=== PATIENT | male | born 1955 | race Caucasian/White ===

== ENCOUNTER 2020-05-11 14:20 | Emergency (ER) | payer OTHER, SELFPAY ==
--- NOTE | 2020-05-11 14:29 | ED.GENADULT ---
HPI - General Adult General Chief complaint: Ear Stated complaint: wax build up ears Time Seen by Provider: 05/11/20 14:30 Source: patient Mode of arrival: ambulatory Limitations: no limitations History of Present Illness HPI narrative: 64-year-old male patient presents to the [facility] with complaints of earwax buildup to both ears but more so to the left ear. Patient states that he went to go and have his hearing aids refitted today and he was told that he had some earwax buildup but they were not able to clean them out. Patient denies any lightheadedness, dizziness, fevers or pain. Related Data Home Medications Medication Instructions Recorded Confirmed bimatoprost 0.01 % eye drops 1 drop EACH EYE QPM 04/18/19 05/11/20 fluoxetine 10 mg capsule 10 mg PO DAILY 04/18/19 05/11/20 Allergies Allergy/AdvReac Type Severity Reaction Status Date / Time No Known Allergies Allergy Verified 04/21/20 11:05 Review of Systems Review of Systems: Narrative: CONSTITUTIONAL: Denies fever, chills, or sweats. EYES: Denies visual changes, redness, or discharge. ENT: Denies rhinorrhea, congestion, sore throat, positive bilateral clogged ears. CARDIOVASCULAR: Denies chest pain, palpitations, or edema. RESPIRATORY: Denies cough or dyspnea. GASTROINTESTINAL: Denies abdominal pain, nausea, vomiting, or diarrhea. GENITOURINARY: Denies dysuria or hematuria. SKIN: Denies rash or itching. MUSCULOSKELETAL: Denies back pain, joint pain, or myalgia. NEUROLOGIC: Denies headache, numbness, or weakness. PSYCHIATRIC: Denies anxiety or depression. [facility] Family History Family History Sibling Family history of kidney disease Mother Cerebrovascular accident, Onset Age: 86 Patient's mother is , Onset Age: 88 Father Family history of coronary artery disease Social History Social History Smoking status: Former smoker Second hand tobacco smoke exposure: No Smoking end date: 04/03/15 Alcohol intake: current Drinks per week: 4 Substance use: never Comments At the time of my signature I agree with nursing past medical history, surgical, social, and family history. There is no relevant family history pertinent to the presenting complaint. Exam Narrative: Exam Narrative: GENERAL: Well-appearing, well-nourished, and in no acute distress. HEAD: Normocephalic, atraumatic. EYES: PERRLA and EOMI. ENT: Nares clear, no rhinorrhea or epistaxis. Mucous membranes moist. Unable to assess bilateral TMs due to cerumen impaction. NECK: Supple. No lymphadenopathy CHEST: Clear to auscultation. No respiratory distress. HEART: Regular rate and rhythm. No murmur heard. Normal peripheral pulses. ABDOMEN: Soft, nontender, nondistended, normal active bowel sounds. EXTREMITIES: Normal range of motion. No edema. SKIN: Warm, dry, no rash. NEURO: No focal deficits. Alert and oriented x3. Course Vital Signs Vital signs: Vital Signs Temperature 36.6 C 05/11/20 14:30 Pulse Rate 68 05/11/20 14:30 Respiratory Rate 18 05/11/20 14:30 Blood Pressure 155/92 H 05/11/20 14:30 Pulse Oximetry 98 05/11/20 14:30 Temperature 36.6 C 05/11/20 14:35 Pulse Rate 68 05/11/20 14:35 Respiratory Rate 18 05/11/20 14:35 Blood Pressure 155/92 H 05/11/20 14:35 Pulse Oximetry 98 05/11/20 14:35 Vital signs reviewed The patient has been informed that they may have pre-hypertension or Hypertension based on a BP reading in the department. I recommend that the patient call the primary care provider listed on their discharge instructions or a physician of their choice this week to arrange follow up for further evaluation of possible pre-hypertension or Hypertension Procedures Ear Wax Removal Both Ears: Ear Wax Removal Date: 05/11/20 Ear Wax Removal Time: 14:46 Cerumenolytic Used: Cerumenex and 5-10%
[2020-05-11 14:30] VITALS: BP 155/92; PULSE 68; RESP 18; TEMP 36.6; O2SAT 98
[2020-05-11 14:35] VITALS: BP 155/92; PULSE 68; RESP 18; TEMP 36.6; O2SAT 98
[2020-05-11] MEDS: CARBAMIDE PEROXIDE 6.5% OT SOLN 15 ML BTL 5 DROP LEFT EAR (14:44)
== END 2020-05-11 15:10 | disposition home or self-care (01) ==
PROVIDERS: Emergency Provider Nurse Practitioner Family; PCP Internal Medicine
DX: H61.23 Impacted cerumen, bilateral (principal); Z87.891 Personal history of nicotine dependence; I10 Essential (primary) hypertension; H40.9 Unspecified glaucoma; F32.9 Major depressive disorder, single episode, unspecified
CPT/HCPCS: 69210; 99213; A9270; G0463

== ENCOUNTER 2021-05-18 07:05 | Outpatient (CLI) | payer OTHER, SELFPAY ==
--- NOTE | ~2021-05-18 | XR_ITS ---
XR wrist RT min 3V DATE: 05/18/2021 07:34 INDICATION: Pain, swelling, stiffness; mass at head of third metacarpal TECHNIQUE: 4 views of right wrist COMPARISON: None FINDINGS: There is prominent narrowing at the radial scaphoid joint. There is osteoarthritic change a t the triscaphe and first carpometacarpal and particularly the second and third metacarpal joints wit h very prominent spurs of the second and third metacarpal heads. No fracture or dislocation, periosteal reaction or bone destruction, erosion or chondrocalcinosis is detected. IMPRESSION: Polyarticular osteoarthritis, particularly prominent at the second and third metacarpopha langeal joints, with very prominent spurs of the heads of the second and third metacarpal bones, like ly accounting for the clinically reported mass at the head of the third metacarpal Reviewed, dictated and finalized at location B. SHADE MAKER IMPRESSION: Polyarticular osteoarthritis, particularly prominent at the second and third metacarpophalangeal joints, with very prominent spurs of the heads of the second and third metacarpal bones, likely accounting for the clinically re ported mass at the head of the third metacarpal
--- NOTE | ~2021-05-18 | XR_ITS ---
XR hand RT min 3V DATE: 05/18/2021 07:35 INDICATION: Pain, swelling, stiffness. Mass at head of third metacarpal. TECHNIQUE: 3 views COMPARISON: None FINDINGS: There is polyarticular osteoarthritis, including prominent narrowing at the radial scaphoid joint, involvement of the triscaphe, first carpometacarpal and especially the second and third metac arpophalangeal joints, with very prominent spurs of the second and third metacarpal heads. There is m ild spurring at the fifth metacarpophalangeal joint. Osteoarthritic changes noted at some of the inte rphalangeal joints, with mild spurring at the distal interphalangeal joints of the fourth and fifth d igits in particular. No erosive change. No chondrocalcinosis. No fracture, dislocation, periosteal reaction or bone destruction. IMPRESSION: Polyarticular osteoarthritis, particularly prominent osteoarthritic spurs at the heads of the second and third metacarpal bones, likely accounting for the clinically reported mass of the hea d of the third metacarpal bone Reviewed, dictated and finalized at location B. LINES SUPERVISOR IMPRESSION: Polyarticular osteoarthritis, particularly prominent osteoarthritic spurs at the heads of the second and third metacarpal bones, likely accounting for the clinically reported mass of the head of the third metacarpal bone
== END 2021-05-18 07:06 | disposition home or self-care (01) ==
LOC: ANHIMG 07:12
PROVIDERS: PCP Internal Medicine; Visit Provider Plastic Surgery
DX: M19.031 Primary osteoarthritis, right wrist (principal); M19.041 Primary osteoarthritis, right hand
CPT/HCPCS: 73110; 73130

== ENCOUNTER 2023-02-06 12:33 | Outpatient (CLI) | payer MEDICARE, SELFPAY ==
--- NOTE | ~2023-02-06 | CT_ITS ---
EXAMINATION: CT lung screening DATE: 02/06/2023 13:04 INDICATION: Personal history nicotine dependence, prior smoker with 40 pack year history TECHNIQUE: Computed tomography (CT) of the chest was performed without intravenous contrast. The dose -length product (DLP) was 107.57 mGy-cm. Automated exposure control and iterative reconstruction tech [employer] were employed. COMPARISON: None FINDINGS: There is mild emphysema. There is scarring of the lung apices. There are a few scattered pu lmonary nodules measuring 1 to 2 mm. No suspicious pulmonary nodule is identified. The lungs are free of acute opacities. No pleural effusion or pneumothorax. No pathologically enlarged thoracic lymph n odes are identified. The heart size is normal. Calcified pulmonary nodules and calcified right hilar lymph nodes are consistent with old granulomatous disease. There is moderate thoracic spondylosis. IMPRESSION: 1. Lung-RADS category 2: Benign appearance or behavior. Continue annual screening with noncontrast lo w-dose chest CT in 12 months. Reviewed, dictated and finalized at location B. TABLE FARMER IMPRESSION: 1. Lung-RADS category 2: Benign appearance or behavior. Continue annual screeni ng with noncontrast low-dose chest CT in 12 months.
== END 2023-02-06 12:34 | disposition home or self-care (01) ==
PROVIDERS: PCP Internal Medicine; Visit Provider Internal Medicine
DX: Z12.2 Encounter for screening for malignant neoplasm of respiratory organs (principal); Z87.891 Personal history of nicotine dependence
CPT/HCPCS: 71271

== ENCOUNTER 2023-02-09 02:42 | Day surgery (SDC) | payer MEDICARE, SELFPAY ==
[2023-01-30 15:04] VITALS: BMI 23.8
--- NOTE | 2023-02-07 10:10 | SUR.PREOP ---
Patient called regarding upcoming procedure. Message left on patient's voicemail regarding preop instructions, appointment times, and procedure prep.
[2023-02-09 09:22] VITALS: BP 102/66; PULSE 74; RESP 18; TEMP 36.6; O2SAT 96; BMI 23.1
[2023-02-09] MEDS: LACTATED RINGERS 1,000 ML 150 ML IV CONT (09:44)
--- NOTE | 2023-02-09 10:29 | PM.HPGS ---
History of Present Illness History of Present Illness Consent: Risks, benefits, and alternatives have been discussed and questions answered. Patient agrees to proceed with procedure. Chief complaint: hx colon polyps Narrative: Olman Beth is a 67 year old male Presents for screening colonoscopy. Patient's current weight appetite and bowel movements are normal. Patient denies abdominal pain. He has had no bleeding. Family history noncontributory. Previous colonoscopy in 2017 revealed benign adenomatous colon polyp. Review of Systems Review of Systems: Review of systems noncontributory. [facility] Family History Family History Sibling Family history of kidney disease Mother Cerebrovascular accident, Onset Age: 86 Patient's mother is , Onset Age: 88 Father Family history of coronary artery disease Social History Social History (Updated 05/03/22 @ 14:07 by Kimberly Jain [facility]) Smoking packs per day: 1.5 Smoking cigarettes per day: 30.0 Years smoked: 45 Smoking pack-years: 67.50 Smoking status: Former smoker Tobacco type: cigarettes Second hand tobacco smoke exposure: No Smoking end date: 04/03/15 Alcohol intake: current Drinks per week: 5 Substance use: never Substance use type: does not use Lack of Transportation: No Lack of Food: Never True Current Housing: I Have Housing Concerned About Future Housing: No Difficulty Paying Gas/Electric Bills: No Difficulty Paying for Meds: No Currently Unemployed: No Education: High School Diploma/GED Difficulty w/ Childcare or Family Care: No Living arrangements: other Additional living arrangements comments: with sp Meds Home Medications and Allergies Home Medications Medication Instructions Recorded Confirmed Type bimatoprost 0.01 % eye drops 1 drop ophthalmic (eye) QPM 04/18/19 02/09/23 History (Lumigan) cholecalciferol (vitamin D3) 125 125 mcg PO DAILY 04/23/21 02/09/23 History mcg (5,000 unit) capsule glucosamine sulfate 500 mg tablet 500 mg PO DAILY 04/23/21 02/09/23 History (Glucosamine) hydrochlorothiazide 12.5 mg tablet 12.5 mg PO DAILY #90 tabs 05/21/22 02/09/23 Rx fluoxetine 10 mg capsule (Prozac) 10 mg PO DAILY #90 caps 07/08/22 02/09/23 Rx Allergies Allergy/AdvReac Type Severity Reaction Status Date / Time No Known Allergies Allergy Verified 02/09/23 09:30 Vital Signs Vital Signs - 24 hr 02/09/23 09:22 Temperature 97.9 F Pulse Rate 74 Respiratory Rate 18 Blood Pressure 102/66 Pulse Oximetry 96 Oxygen Delivery Room Air Exam Narrative: Physical exam reveals patient to be alert. Vital signs stable. HEENT exam is unremarkable. Patient is anicteric. Lungs are clear to auscultation and percussion. Heart is without murmur or extra sounds. Abdomen bowel sounds are present soft nontender with no organomegaly. Digital external rectal exam is normal. Assessment and Plan Assessment and plan (1) History of colon polyps: Code(s): Z86.010 - Personal history of colonic polyps Status: Acute Assessment and Plan: Patient has a prior history of adenomatous colon polyp removed in 2017. Plan for surveillance colonoscopy now and consider this at intervals in the future.
--- NOTE | 2023-02-09 10:43 | WPDANESEPPF ---
Anes - Initial Pre Proc Eval Procedure: Operation Date: 02/09/23 10:30 Proposed Procedures p Colonoscopy - Shiraz Cummins MD Date/Time: 02/09/23 10:43 Surgeon: Shiraz Cummins MD Pre Op Diagnosis: hx colon polyps Patient Data Age: 67 Gender: M Height: 1.8 m Weight: 75.4 kg Last Vital Signs Temp 36.6 C 02/09/23 09:22 Pulse 74 02/09/23 09:22 Resp 18 02/09/23 09:22 BP 102/66 02/09/23 09:22 Pulse Ox 96 02/09/23 09:22 O2 Del Method Room Air 02/09/23 09:22 Allergies Allergy/AdvReac Type Severity Reaction Status Date / Time No Known Allergies Allergy Verified 02/09/23 09:30 Home Medications Medication Instructions Recorded Confirmed Type bimatoprost 0.01 % eye drops 1 drop ophthalmic (eye) QPM 04/18/19 02/09/23 History (Lumigan) cholecalciferol (vitamin D3) 125 125 mcg PO DAILY 04/23/21 02/09/23 History mcg (5,000 unit) capsule glucosamine sulfate 500 mg tablet 500 mg PO DAILY 04/23/21 02/09/23 History (Glucosamine) hydrochlorothiazide 12.5 mg tablet 12.5 mg PO DAILY #90 tabs 05/21/22 02/09/23 Rx fluoxetine 10 mg capsule (Prozac) 10 mg PO DAILY #90 caps 07/08/22 02/09/23 Rx Patient hx anesthesia problems: none Family hx anesthesia problems: none Results Review: All pre-operative results and documents have been reviewed as part of the pre-operative evaluation. [facility], [facility] Family History Family History Sibling Family history of kidney disease Mother Cerebrovascular accident, Onset Age: 86 Patient's mother is , Onset Age: 88 Father Family history of coronary artery disease Social History Social History Smoking packs per day: 1.5 Smoking cigarettes per day: 30.0 Years smoked: 45 Smoking pack-years: 67.50 Smoking status: Former smoker Tobacco type: cigarettes Second hand tobacco smoke exposure: No Smoking end date: 04/03/15 Alcohol intake: current Drinks per week: 5 Substance use: never Substance use type: does not use Lack of Transportation: No Lack of Food: Never True Current Housing: I Have Housing Concerned About Future Housing: No Difficulty Paying Gas/Electric Bills: No Difficulty Paying for Meds: No Currently Unemployed: No Education: High School Diploma/GED Difficulty w/ Childcare or Family Care: No Living arrangements: other Additional living arrangements comments: with melanie No Final PreProcedure Day of Procedure 02/09/23 10:43 Patient weight: normal Heart: regular rate and rhythm Lungs: decreased breath sounds Airway: Mallampati scale Neurological: alert and oriented Last oral intake: >/= 8 hours ASA classification: III Emergent: no Anesthetic plan: proceed Anesthesia type and monitoring: general GIVS and standard monitoring Results Review: All pre-operative results and documents have been reviewed as part of the pre-operative evaluation. Informed Consent: The patient's anesthetic plan and its attendant risks and benefits were discussed with the patient/family/POA. Questions were solicited and answers provided to the satisfaction of the patient/family/POA.
[2023-02-09 11:26] VITALS: BP 100/62; PULSE 60; RESP 18; O2SAT 100
[2023-02-09 11:36] VITALS: BP 130/71; PULSE 62; RESP 18; O2SAT 100
[2023-02-09 11:46] VITALS: BP 117/78; PULSE 59; RESP 16; O2SAT 100
== END 2023-02-09 11:57 | disposition home or self-care (01) ==
PROVIDERS: PCP Internal Medicine; Visit Provider Internal Medicine Gastroenterology
PROC: 0DJD8ZZ Inspection of Lower Intestinal Tract, Via Natural or Artificial Opening Endoscopic (ICD-10-PCS; CPT 45378; principal; 2023-02-09 10:30)
DX: Z12.11 Encounter for screening for malignant neoplasm of colon (principal); K57.30 Diverticulosis of large intestine without perforation or abscess without bleeding; K63.5 Polyp of colon; K64.8 Other hemorrhoids; Z87.891 Personal history of nicotine dependence; Z82.3 Family history of stroke; Z82.49 Family history of ischemic heart disease and other diseases of the circulatory system
CPT/HCPCS: 45385; 88305; J2704; J7120

== ENCOUNTER 2024-03-15 10:54 | Emergency (ER) | payer MEDICARE, SELFPAY ==
[2024-03-15 11:11] VITALS: BP 148/82; PULSE 77; RESP 30; TEMP 36.4; O2SAT 100
--- NOTE | 2024-03-15 11:23 | ED_ITS ---
HPI - SOB/Dyspnea General Chief Complaint: Upper Respiratory Infection Stated Complaint: stomach and chest Pain Time Seen by Provider: 03/15/24 11:20 Source: patient Mode of arrival: ambulatory Limitations: no limitations History of Present Illness HPI Narrative: Olman is a 68-year-old male patient presenting to the clinic today with complaints of a knot in his upper stomach, shortness of breath, and dry cough. He appears pale. He denies any chest pain. This has been going on for 4 days. He has states he is able to drink water but not able to keep any foods down. He is a former smoker. Respirations are 30. Oxygen saturations 100% on room air. Cough is nonproductive. Denies any chest pain. Related Data Home Medications ?Medication ?Instructions ?Recorded ?Confirmed ?Last Taken ?Type bimatoprost 0.01 % eye drops 1 drop ophthalmic (eye) QPM 04/18/19 03/15/24 Unknown History (Lumigan) cholecalciferol (vitamin D3) 125 125 mcg PO DAILY 04/23/21 03/15/24 Unknown History mcg (5,000 unit) capsule glucosamine sulfate 500 mg tablet 500 mg PO DAILY 04/23/21 03/15/24 Unknown History (Glucosamine) Allergies Allergy/AdvReac Type Severity Reaction Status Date / Time No Known Allergies Allergy Verified 03/15/24 11:17 Review of Systems Review of Systems: Pertinent positives per HPI. Patient denies any fever, chills, rash, headache, visual changes, dizziness, chest pain, palpitations, diarrhea, constipation, or any urinary issues. [facility] Family History Family History Sibling Family history of kidney disease Mother Cerebrovascular accident, Onset Age: 86 Patient's mother is , Onset Age: 88 Father Family history of coronary artery disease Social History Social History Smoking packs per day: 1.5 Smoking cigarettes per day: 30.0 Years smoked: 45 Smoking pack-years: 67.50 Smoking status: Former smoker Tobacco type: cigarettes Second hand tobacco smoke exposure: No Smoking end date: 04/03/15 Alcohol intake: current Drinks per week: 5 Substance use: never Substance use type: does not use Lack of Transportation: No Lack of Food: Never True Current Housing: I Have Housing Concerned About Future Housing: No Difficulty Paying Gas/Electric Bills: No Difficulty Paying for Meds: No Currently Unemployed: No Education: High School Diploma/GED Difficulty w/ Childcare or Family Care: No Living arrangements: other Additional living arrangements comments: with sp Comments At the time of my signature, I reviewed and agree with the nursing past medical, surgical, social, and family history. There is no relevant family history pertinent to the patient complaint. Exam Narrative: General: Well-developed, well nourished, appears pale, tachypneic Head: Normocephalic, atraumatic Eyes: Pupils equally round and reactive to light bilaterally, EOM intact, sclera and conjunctive clear, no discharge, lids normal Ears: TMs intact and clear, ear canals clear, no drainage, grossly hearing normal. Nose: Nares patent, clear discharge, no inflammation, no sinus tenderness. Mouth: Oral pharynx without lesions or masses, good dentition, MMM. Neck: Supple, trachea midline, no enlargement of anterior or posterior cervical nodes, no thyroid masses or goiter palpable. Cardio: Regular rate and rhythm, s1 and s2 normal, no murmur appreciated. Resp: Clear to auscultation bilaterally, no rhonchi, rales, wheezing or rubs, tachypneic Course Course Emergency Course: Portions of this record may have been created with voice recognition software. Level of Care: Express Care Visit Vital Signs Vital signs: Vital Signs Temperature 36.4 C 03/15/24 11:11 Pulse Rate 77 03/15/24 11:11 Respiratory Rate 30 H 03/15/24 11:11 Blood Pressure 148/82 H 03/15/24 11:11 Pulse Oximetry 100 03/15/24 11:11 Oxygen Delivery Room Air 03/15/24 11:11 Temperature 36.4 C 03/15/24 11:11 Pulse Rate 77 03/15/24 11:11 Respiratory Rate 30 H 03/15/24 11:11 Blood Pressure 148/82 H 03/15/24 11:11 Pulse Oximetry 100 03/15/24 11:11 Oxygen Delivery Room Air 03/15/24 11:11 Vital signs reviewed Transfer Transfered to: [place] Transportation: Other (private car) Transfer rationale: SOB, tachypnea, abdominal pain Accepting physician: Randell Transfer comments: Declined EMS MDM - SOB/Dyspnea MDM Narrative Medical decision making narrative: At the time of visit patient is resting comfortably on the exam table. Patient appears to be acutely ill and tachypneic. EKG: EKG shows sinus rhythm with heart rate of 70 beats per minute without ST elevation or depression noted. Plan: Patient is reporting shortness of breath and he is tachypneic. Upper abdominal discomfort/knot-recommend transfer to the ER for further evaluation. Patient would like to go to [place] ER. Report was called to Shannen BENAVIDEZ for continuity of care. Differential Diagnosis Differential diagnosis: Likely acute exacerbation of chronic obstructive airways disease, congestive heart failure, community acquired pneumonia, asthma with exacerbation, pulmonary embolism and other (STEMI, non STEMI) ECG Data EKG #1: Attestation: I personally reviewed and interpreted this ECG as follows: ECG completion date: 03/15/24 ECG completion time: 11:38 Interpretation: EKG shows sinus rhythm with heart rate of 70 beats per minute without ST elevation or depression. Has possible left atrial enlargement or possible right ventricular conduction delay. TN interval is 163 milliseconds, QRS durations 98 milliseconds, QT-QTC see is 390-411 milliseconds, P-R-T axis is 77 33 74 Discharge Plan Discharge Clinical Impression: Shortness of breath, Tachypnea Abdominal pain Qualifiers: Abdominal location: upper abdomen, unspecified Qualified Code(s): R10.10 - Upper abdominal pain, unspecified Patient Disposition: Acute Care Hospital Condition: Stable Instructions: Antibiotic Form Patient Language: Amharic Prescriptions: No Action cholecalciferol (vitamin D3) 125 mcg (5,000 unit) capsule 125 mcg PO DAILY glucosamine sulfate [Glucosamine] 500 mg tablet 500 mg PO DAILY Rx Instructions: administer with a meal Lumigan 0.01 % drops 1 drop EACH EYE QPM hydrochlorothiazide 12.5 mg tablet See Rx Instructions .ROUTE .COMPLEX Qty: 100 3RF Dose Instruction: TAKE 1 TABLET BY MOUTH DAILY Rx Instructions: TAKE 1 TABLET BY MOUTH DAILY fluoxetine [Prozac] 10 mg capsule 10 mg PO DAILY Qty: 90 3RF Follow-up/Referrals: PHYSICIAN,SENIOR ACCOUNT EXECUTIVE [Primary Care Provider] - Time of Disposition: 11:50 Quality NIHSS Nursing Documentation ED NIHSS nursing documentation: reviewed/agree
--- NOTE | 2024-03-15 11:25 | ECG_ITS ---
Test Date: 2024-03-15 11:38:23 Measurements Intervals [place] Rate: 70 P: 77 IN: 163 QRS: 33 QRSD: 98 T: 74 QT: 390 QTc: 423 Interpretive Statements SINUS RHYTHM POSSIBLE LEFT ATRIAL ENLARGEMENT [-0.1mV P WAVE IN V1/V2] POSSIBLE RIGHT VENTRICULAR CONDUCTION DELAY [RSR (QR) IN V1/V2] No previous ECG available for comparison Electronically Signed On 03-15-2024 18:44:27 STAFF ASSISTANT by Bethany Pratt M.D.
== END 2024-03-15 11:55 | disposition short-term general hospital (02) ==
PROVIDERS: Emergency Provider Nurse Practitioner Family
DX: R06.82 Tachypnea, not elsewhere classified (principal); R10.10 Upper abdominal pain, unspecified; Z87.891 Personal history of nicotine dependence
CPT/HCPCS: 93005; 99213; G0463

== ENCOUNTER 2024-03-15 12:11 | Emergency (ER) | payer MEDICARE, SELFPAY ==
[2024-03-15] VITALS (17 sets, daily range): BP systolic 102–130; BP diastolic 73–90; PULSE 72–118; RESP 12–40; TEMP 36.4; O2SAT 96–100
--- NOTE | ~2024-03-15 | XR_ITS ---
EXAMINATION: XR chest 1V portable 03/15/2024 15:33 INDICATION: Cough with dyspnea PROCEDURE: AP portable chest COMPARISON: 10/12/2016 FINDINGS: The lungs are clear. The cardiomediastinal silhouette is within normal limits. There are no pleural effusions. There is no pneumothorax suspected. IMPRESSION: 1: NO ACUTE CARDIOPULMONARY DISEASE. Reviewed, dictated and finalized at location B. RER
--- NOTE | 2024-03-15 14:41 | ED.GENADULT ---
HPI - General Adult General Chief complaint: Shortness of Breath/Dyspnea <Sidney Ray PA-C - Last Filed: 03/15/24 14:46> Stated complaint: sob, weakness <Sidney Ray PA-C - Last Filed: 03/15/24 14:46> Time Seen by Provider: 03/15/24 14:44 <Sidney Ray PA-C - Last Filed: 03/15/24 14:46> Focused HPI: This is a 68-year-old male who presents to the ED from urgent care referral for shortness of breath. Patient reports that he has been feeling increasing short of breath lately as well as had some fevers this week. Noted to be tachypneic and mildly tachycardic at the urgent care so was referred here for further evaluation. Patient reports that he has also had a little bit of abdominal burning. GENERAL: Well-appearing, well-nourished, and in no acute distress. HEAD: Normocephalic, atraumatic. CHEST: Clear to auscultation. No respiratory distress. ABD: Soft, grossly nontender. HEART: Regular rate and rhythm. NEURO: Alert and oriented x3. Patient screened in triage and initial orders placed. Additional care and disposition to be based upon diagnostic testing and treatment. <Sidney Ray PA-C - Last Filed: 03/15/24 14:46> Source: patient <Sidney Ray PA-C - Last Filed: 03/15/24 14:46> Mode of arrival: ambulatory <Sidney Rya PA-C - Last Filed: 03/15/24 14:46> Limitations: no limitations <Sidney Ray PA-C - Last Filed: 03/15/24 14:46> History of Present Illness HPI narrative: agree with HPI <Galo Hendrickson MD - Last Filed: 03/15/24 22:51> Related Data Home medications: Home Medications ?Medication ?Instructions ?Recorded ?Confirmed ?Last Taken ?Type bimatoprost 0.01 % eye drops 1 drop ophthalmic (eye) QPM 04/18/19 03/15/24 Unknown History (Rissa) cholecalciferol (vitamin D3) 125 125 mcg PO DAILY 04/23/21 03/15/24 Unknown History mcg (5,000 unit) capsule glucosamine sulfate 500 mg tablet 500 mg PO DAILY 04/23/21 03/15/24 Unknown History (Glucosamine) <Sidney Ray PA-C - Last Filed: 03/15/24 14:46> Allergies/adverse reactions: Allergies Allergy/AdvReac Type Severity Reaction Status Date / Time No Known Allergies Allergy Verified 03/15/24 11:17 <Sidney Ray PA-C - Last Filed: 03/15/24 14:46> Review of Systems Review of Systems: All systems reviewed & are unremarkable except as noted in HPI and below <Galo Hendrickson MD - Last Filed: 03/15/24 22:51> Constitutional: Constitutional: Reports no additional constitutional complaints <Galo Hendrickson MD - Last Filed: 03/15/24 22:51> ENT: Reports system reviewed and no additional complaints, except as documented <Galo Hendrickson MD - Last Filed: 03/15/24 22:51> Cardiovascular: Cardiovascular: Reports no additional cardiovascular complaints <Galo Hendrickson MD - Last Filed: 03/15/24 22:51> Respiratory: Respiratory: Reports cough, Reports dyspnea and Denies wheezing <Galo Hendrickson MD - Last Filed: 03/15/24 22:51> Gastrointestinal: Gastrointestinal: Reports no additional gastrointestinal complaints <Galo Hendrickson MD - Last Filed: 03/15/24 22:51> [facility] Past Medical History Medical History: Medical History (Updated 03/15/24 @ 22:50 by Galo Hendrickson MD) Thyromegaly COPD (chronic obstructive pulmonary disease) Benign prostatic hyperplasia Essential (primary) hypertension Hyperlipidemia <Sidney Ray PA-C - Last Filed: 03/15/24 14:46> Family History Family History: Family History Sibling Family history of kidney disease Mother Cerebrovascular accident, Onset Age: 86 Patient's mother is , Onset Age: 88 Father Family history of coronary artery disease <ALBERT Foreman Last Filed: 03/15/24 14:46> Social History Social History: Social History Smoking packs per day: 1.5 Smoking cigarettes per day: 30.0 Years smoked: 45 Smoking pack-years: 67.50 Smoking status: Former smoker Tobacco type: cigarettes Second hand tobacco smoke exposure: No Smoking end date: 04/03/15 Alcohol intake: current Drinks per week: 5 Substance use: never Substance use type: does not use Lack of Transportation: No Lack of Food: Never True Current Housing: I Have Housing Concerned About Future Housing: No Difficulty Paying Gas/Electric Bills: No Difficulty Paying for Meds: No Currently Unemployed: No Education: High School Diploma/GED Difficulty w/ Childcare or Family Care: No Living arrangements: other Additional living arrangements comments: with sp <Sidney Ray PA-C - Last Filed: 03/15/24 14:46> Exam Narrative: GENERAL: Well-appearing, well-nourished, and in no acute distress. HEAD: Normocephalic, atraumatic. ENT: Mucous membranes moist. NECK: Supple. CHEST: Clear to auscultation but faint wheezing left lower lobe. No respiratory distress. HEART: tachycardic and regular. Normal peripheral pulses. ABDOMEN: Soft, nontender, nondistended. EXTREMITIES: Normal range of motion. No edema. SKIN: Warm, dry, no rash. NEURO:Alert and oriented x3. PSYCH: Normal mood and affect. <Galo Hendrickson MD - Last Filed: 03/15/24 22:51> Course Course Emergency Course: lung sounds improved after nebulizer treatment. Ambulatory without hypoxia. Discharge with paxlovid and albuterol. <Galo Hendrickson MD - Last Filed: 03/15/24 22:51> Vital Signs Vital signs: Vital Signs Temperature 97.5 F L 03/15/24 12:25 Pulse Rate 118 H 03/15/24 12:25 Respiratory Rate 30 H 03/15/24 12:25 Blood Pressure 126/83 03/15/24 12:25 Pulse Oximetry 100 03/15/24 12:25 Temperature 97.5 F L 03/15/24 12:25 Pulse Rate 79 03/15/24 19:15 Respiratory Rate 20 03/15/24 19:15 Blood Pressure 102/81 03/15/24 19:15 Pulse Oximetry 97 03/15/24 19:15 Oxygen Delivery Room Air 03/15/24 15:51 <Sidney Ray PA-C - Last Filed: 03/15/24 14:46> Vital Signs Temperature 97.5 F L 03/15/24 12:25 Pulse Rate 118 H 03/15/24 12:25 Respiratory Rate 30 H 03/15/24 12:25 Blood Pressure 126/83 03/15/24 12:25 Pulse Oximetry 100 03/15/24 12:25 Temperature 97.5 F L 03/15/24 12:25 Pulse Rate 79 03/15/24 19:15 Respiratory Rate 20 03/15/24 19:15 Blood Pressure 102/81 03/15/24 19:15 Pulse Oximetry 97 03/15/24 19:15 Oxygen Delivery Room Air 03/15/24 15:51 <Galo Hendrickson MD - Last Filed: 03/15/24 22:51> Medical Decision Making Vital Signs Vital Signs: Vital Signs Temperature 97.5 F L 03/15/24 12:25 Pulse Rate 118 H 03/15/24 12:25 Respiratory Rate 30 H 03/15/24 12:25 Blood Pressure 126/83 03/15/24 12:25 Pulse Oximetry 100 03/15/24 12:25 Temperature 97.5 F L 03/15/24 12:25 Pulse Rate 79 03/15/24 19:15 Respiratory Rate 20 03/15/24 19:15 Blood Pressure 102/81 03/15/24 19:15 Pulse Oximetry 97 03/15/24 19:15 Oxygen Delivery Room Air 03/15/24 15:51 <Sidney Ray PA-C - Last Filed: 03/15/24 14:46> Vital Signs Temperature 97.5 F L 03/15/24 12:25 Pulse Rate 118 H 03/15/24 12:25 Respiratory Rate 30 H 03/15/24 12:25 Blood Pressure 126/83 03/15/24 12:25 Pulse Oximetry 100 03/15/24 12:25 Temperature 97.5 F L 03/15/24 12:25 Pulse Rate 79 03/15/24 19:15 Respiratory Rate 20 03/15/24 19:15 Blood Pressure 102/81 03/15/24 19:15 Pulse Oximetry 97 03/15/24 19:15 Oxygen Delivery Room Air 03/15/24 15:51 <Galo Hendrickson MD - Last Filed: 03/15/24 22:51> Lab Data Result diagrams: 03/15/24 15:55 03/15/24 15:55 <Sidney Ray PA-C - Last Filed: 03/15/24 14:46> Labs: Lab Results 03/15/24 Range/Units 15:55 WBC 9.8 (4.5-10.0) K/mm3 RBC 4.65 (4.6-6.20) M/mm3 Hgb 14.9 (14.0-18.0) g/dL Hct 42.7 (42.0-52.0) % MCV 91.8 (80-100) fl MCH 32.0 (26-34) pg MCHC 34.9 (32-36) g/dl RDW 12.6 (11.5-14.5) % Plt Count 249 (150-375) k/mm3 MPV 9.5 (7.4-10.4) fl Immature Gran % (Auto) 0.5 (0-0.5) % Neut % (Auto) 70.1 (45.5-73.1) % Lymph % (Auto) 16.3 L (18.3-44.2) % Sierra % (Auto) 12.5 H (2.6-8.5) % Eos % (Auto) 0.3 (0-4.4) % Baso % (Auto) 0.3 (0.2-1.2) % Lymph # (Auto) 1.59 (0.9-3.2) K/mm3 Sierra # (Auto) 1.2 H (0.1-0.6) K/mm3 Eos # (Auto) 0.0 (0-0.3) K/mm3 Baso # (Auto) 0.0 (0.0-0.1) K/mm3 Abs Immat Gran (auto) 0.05 H (0.00-0.031) K/mm3 Absolute Neuts (auto) 6.8 H (1.3-6.7) K/mm3 Absolute Nucleated RBC 0.000 (0.0-0.012) K/mm3 Nucleated RBC % 0.0 (0.0-0.2) % Sodium 138 (137-145) mmol/L Potassium 3.7 (3.4-5.0) mmol/L Chloride 102 (98-107) mmol/L Carbon Dioxide 27 (22-30) mmol/L Anion Gap 9 (4-12) mmol/L BUN 19 (9-20) mg/dL Creatinine 1.20 (0.7-1.3) mg/dL Estim Creat Clear Calc 57 ml/min Estimated GFR 60 (59 - ) Glucose 112 H (65-110) mg/dL Calcium 10.0 (8.4-10.2) mg/dL Total Bilirubin 0.9 (0.2-1.3) mg/dL AST 34 (17-59) U/L ALT 27 (6-50) U/L Alkaline Phosphatase 82 (38-126) U/L Troponin I < 0.012 (0.000-0.034) ng/mL NT-Pro-B Natriuret Pep 347 H (19.9-100) pg/mL Total Protein 8.0 (6.3-8.2) g/dL Albumin 4.5 (3.5-5.1) g/dL Influenza A (RT-PCR) Negative (Negative) Influenza B (RT-PCR) Negative (Negative) RSV (RT-PCR) Negative (Negative) SARS-CoV-2 RNA (RT-PCR) Positive A (Negative) <Sidney Ray PA-C - Last Filed: 03/15/24 14:46> Lab Results 03/15/24 Range/Units 15:55 WBC 9.8 (4.5-10.0) K/mm3 RBC 4.65 (4.6-6.20) M/mm3 Hgb 14.9 (14.0-18.0) g/dL Hct 42.7 (42.0-52.0) % MCV 91.8 (80-100) fl MCH 32.0 (26-34) pg MCHC 34.9 (32-36) g/dl RDW 12.6 (11.5-14.5) % Plt Count 249 (150-375) k/mm3 MPV 9.5 (7.4-10.4) fl Immature Gran % (Auto) 0.5 (0-0.5) % Neut % (Auto) 70.1 (45.5-73.1) % Lymph % (Auto) 16.3 L (18.3-44.2) % Sierra % (Auto) 12.5 H (2.6-8.5) % Eos % (Auto) 0.3 (0-4.4) % Baso % (Auto) 0.3 (0.2-1.2) % Lymph # (Auto) 1.59 (0.9-3.2) K/mm3 Sierra # (Auto) 1.2 H (0.1-0.6) K/mm3 Eos # (Auto) 0.0 (0-0.3) K/mm3 Baso # (Auto) 0.0 (0.0-0.1) K/mm3 Abs Immat Gran (auto) 0.05 H (0.00-0.031) K/mm3 Absolute Neuts (auto) 6.8 H (1.3-6.7) K/mm3 Absolute Nucleated RBC 0.000 (0.0-0.012) K/mm3 Nucleated RBC % 0.0 (0.0-0.2) % Sodium 138 (137-145) mmol/L Potassium 3.7 (3.4-5.0) mmol/L Chloride 102 (98-107) mmol/L Carbon Dioxide 27 (22-30) mmol/L Anion Gap 9 (4-12) mmol/L BUN 19 (9-20) mg/dL Creatinine 1.20 (0.7-1.3) mg/dL Estim Creat Clear Calc 57 ml/min Estimated GFR 60 (59 - ) Glucose 112 H (65-110) mg/dL Calcium 10.0 (8.4-10.2) mg/dL Total Bilirubin 0.9 (0.2-1.3) mg/dL AST 34 (17-59) U/L ALT 27 (6-50) U/L Alkaline Phosphatase 82 (38-126) U/L Troponin I < 0.012 (0.000-0.034) ng/mL NT-Pro-B Natriuret Pep 347 H (19.9-100) pg/mL Total Protein 8.0 (6.3-8.2) g/dL Albumin 4.5 (3.5-5.1) g/dL Influenza A (RT-PCR) Negative (Negative) Influenza B (RT-PCR) Negative (Negative) RSV (RT-PCR) Negative (Negative) SARS-CoV-2 RNA (RT-PCR) Positive A (Negative) <Galo Hendrickson MD - Last Filed: 03/15/24 22:51> Imaging Data Radiologist's impression: ITS Impressions Chest X-Ray 03/15/24 15:35 IMPRESSION: 1: NO ACUTE CARDIOPULMONARY DISEASE. <Galo Hendrickson MD - Last Filed: 03/15/24 22:51> Discharge Plan Discharge Clinical Impression: COVID <Sidney Ray PA-C - Last Filed: 03/15/24 14:46> Patient Disposition: Home, Self-Care <Sidney Ray PA-C - Last Filed: 03/15/24 14:46> Condition: Stable <Sidney Ray PA-C - Last Filed: 03/15/24 14:46> Instructions: COVID-19 (Coronavirus Disease 2019) (ED) <Sidney Ray PA-C - Last Filed: 03/15/24 14:46> Additional Instructions: Please return to the emergency department if you develop severe and persistent chest pain, difficulty breathing, dizziness, leg swelling or if you are coughing up blood as these can be signs of a medical emergency. Please call your doctor for a follow up appointment to determine the need for further testing. <Sidney Ray PA-C - Last Filed: 03/15/24 14:46> Patient Language: Colombian <Sidney Ray PA-C - Last Filed: 03/15/24 14:46> Prescriptions: New Paxlovid 300 mg (150 mg x 2)-100 mg tablets,dose pack See Rx Instructions .ROUTE .COMPLEX Qty: 30 0RF Rx Instructions: take TWO 150 mg tablets of nirmatrelvir with ONE 100 mg tablet of ritonavir twice daily for 5 days albuterol sulfate 90 mcg/actuation HFA aerosol inhaler 2 puff inhalation QID PRN (Reason: shortness of breath or wheezing) Qty: 8.5 0RF No Action cholecalciferol (vitamin D3) 125 mcg (5,000 unit) capsule 125 mcg PO DAILY glucosamine sulfate [Glucosamine] 500 mg tablet 500 mg PO DAILY Rx Instructions: administer with a meal Lumigan 0.01 % drops 1 drop EACH EYE QPM hydrochlorothiazide 12.5 mg tablet See Rx Instructions .ROUTE .COMPLEX Qty: 100 3RF Dose Instruction: TAKE 1 TABLET BY MOUTH DAILY Rx Instructions: TAKE 1 TABLET BY MOUTH DAILY fluoxetine [Prozac] 10 mg capsule 10 mg PO DAILY Qty: 90 3RF <Sidney Ray PA-C - Last Filed: 03/15/24 14:46> Follow-up/Referrals: PHYSICIAN,MANAGEMENT TRAINEE PROGRAM STORES [Non-Staff] - <Sidney Ray PA-C - Last Filed: 03/15/24 14:46>
--- NOTE | 2024-03-15 14:45 | ECG_ITS ---
Test Date: 2024-03-15 16:05:44 Measurements Intervals [place] Rate: 72 P: 64 PA: 161 QRS: 17 QRSD: 101 T: 72 QT: 400 QTc: 438 Interpretive Statements SINUS RHYTHM NONSPECIFIC T-WAVE ABNORMALITY Compared to ECG 03/15/2024 11:38:23 T-wave abnormality now present Electronically Signed On 03-16-2024 12:59:26 PICKLE WATER PUMP OPERATOR by Bethany Pratt M.D.
[2024-03-15] MEDS: IPRATROPIUM 0.5 MG/ALBUTEROL SULFATE 2.5 MG AMPUL.NEB 3 ML INHALATION (15:19)
--- NOTE | 2024-03-15 16:03 | PC.NURSE ---
EKG done at [facility] charted on Pt's ED visit in error. Removed and new EKG done and charted.
[2024-03-15 16:06] LABS: Basophils Percent Auto 0.3 % (0.2-1.2); Eosinophils Percent Auto 0.3 % (0-4.4); Hematocrit 42.7 % (42.0-52.0); Hemoglobin 14.9 g/dL (14.0-18.0); Immature Granulocyte Absolute 0.05 K/mm3 (0.00-0.031); Immature Granulocyte Percent A 0.5 % (0-0.5); Lymphocytes Absolute Auto 1.59 K/mm3 (0.9-3.2); Lymphocytes Percent Auto 16.3 % (18.3-44.2); Mean Corpuscular HGB Conc 34.9 g/dl (32-36); Mean Corpuscular Volume 91.8 fl (80-100); Mean Platelet Volume 9.5 fl (7.4-10.4); Monocytes Absolute Auto 1.2 K/mm3 (0.1-0.6); Monocytes Percent Auto 12.5 % (2.6-8.5); Neutrophils Absolute Auto 6.8 K/mm3 (1.3-6.7); Neutrophils Percent Auto 70.1 % (45.5-73.1); Platelet Count Result 249 k/mm3 (150-375); Red Blood Count 4.65 M/mm3 (4.6-6.20); Red Cell Distribution Width 12.6 % (11.5-14.5); White Blood Count 9.8 K/mm3 (4.5-10.0)
[2024-03-15 16:16] LABS: Alanine Aminotransferase 27 U/L (6-50); Albumin Level 4.5 g/dL (3.5-5.1); Alkaline Phosphatase 82 U/L (38-126); Anion Gap 9 mmol/L (4-12); Aspartate Amino Transferase 34 U/L (17-59); Bilirubin,Total 0.9 mg/dL (0.2-1.3); Blood Urea Nitrogen 19 mg/dL (9-20); Carbon Dioxide 27 mmol/L (22-30); Chloride 102 mmol/L (98-107); Estimated CRCL calculation 57 ml/min; Estimated Glomerular Filt Rate 60; Glucose 112 mg/dL (65-110); Potassium 3.7 mmol/L (3.4-5.0); Sodium 138 mmol/L (137-145)
[2024-03-15 16:28] LABS: NT Pro B Type Natriuretic Pept 347 pg/mL (19.9-100); Troponin I < 0.012 ng/mL (0.000-0.034)
[2024-03-15 16:44] LABS: Influenza A QL RT-PCR Negative (Negative); Influenza B QL RT-PCR Negative (Negative); RSV RNA, RT-PCR Negative (Negative); SARS-CoV-2 RNA PCR Positive (Negative)
--- OUTSIDE RECORDS SUMMARY | 2024-03-19 01:58 | XMS_ITS | Encounter Summary ---
Author Organization [facility] Facility Care Team Providers Care Bartender Name Role Phone Unavailable Primary Care Provider Unavailabl e Encounter Details Date Type Department Care Team (Latest Contact Info) Description 04/29/2016 11:25 AM BUILDER BEAM - 04/29/2016 3:32 PM BUILDER BEAM 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 F FINAL REPORT ACC# ??Date Time ??Exam [id number] Apr 29, 2016 11:49:00 [id number] Hand minimum 3 views R EXAMINATION: ?Right hand minimum 3 views HISTORY: ??Right hand injury FINDINGS: ?? Three views of the right hand are submitted for interpretation without comparison. The alignment of the right hand is anatomic. There is mild thumb carpal metacarpal and second and third metacarpal phalangeal joint osteoarthritis. There is no fracture. There is a soft tissue laceration of the distal index finger. No foreign body is seen. IMPRESSION: ?? 1. Right index finger soft tissue laceration. 2. Mild right hand osteoarthritis. Requested By: DARI ROUSE F.N.P. Dictated By: ?? Iliana STRATTON ??on Apr 29 2016 11:54A This document has been electronically signed by: Iliana STRATTON on Apr 29 2016 11:54A [id number] Procedure Note Provider, Scottie, - 08/08/2016 Iliana STRATTON FINAL REPORT ACC# Date Time Exam [id number] Apr 29, 2016 11:49:00 [id number] Hand minimum 3 views R EXAMINATION: Right hand minimum 3 views HISTORY: Right hand injury FINDINGS: Three views of the right hand are submitted for interpretation without comparison. The alignment of the right hand is anatomic. There is mild thumb carpal metacarpal and second and third metacarpal phalangeal joint osteoarthritis. There is no fracture. There is a soft tissue laceration of the distal index finger. No foreign body is seen. IMPRESSION: 1. Right index finger soft tissue laceration. 2. Mild right hand osteoarthritis. Requested By: DARI ROUSE F.N.P. Dictated By: Iliana STRATTON on Apr 29 2016 11:54A This document has been electronically signed by: Iliana STRATTON on Apr 29 2016 11:54A [id number] us Historical Provider MD DE XR PROCEDURES Final R esult documented in this encounter Visit Diagnoses Diagnosis Laceration of right index finger without foreign body without damage to nail Exposure to other specified factors, initial encounter Contact with machinery Civilian activity done for income or pay Unspecified place or not applicable Encounter for immunization documented in this encounter
--- OUTSIDE RECORDS SUMMARY | 2024-03-19 01:58 | XMS_ITS | Encounter Summary ---
Author Organization [facility] Address [address] [place] [address] Phone Care Team Providers Care Insulation Manager Name Role Phone Papi Cannon MD Primary Care Provider [phone] Encounter Details Date Type Department Care Team (Late st Contact Info) Description 06/22/2018 1:20 PM CDT Office Visit [facility] [address] [facility] [address] [place] [address] [place] [address] Toño Tillman MD [address] [place], [place] [id number] Bruit of left carotid artery (Primary Dx); Essential hypertension; Vasovagal syncope Social History Tobacco Use Types Packs/Day Years Used Date Smoking Tobacco: Former Smokeless Tobacco: Never Sex and Gender Information Value Date Recorded Sex Assigned at Not on file 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 Gender Identity Not on file Sexual Orientation Not on file documented as of this encounter Last Filed Vital Signs Vital Sign Reading Time Taken Comments Blood Pressure 99/55 06/22/2018 1:10 PM CDT Pulse 61 06/22/2018 1:10 PM CDT Temperature 36.7 ??C (98 ??F) 06/22/2018 1:10 PM CDT Respiratory Rate - - Oxygen Saturation 95% 06/22/2018 1:10 PM CDT Inhaled Oxygen Concentration - - Weight 77.6 kg (171 lb) 06/22/2018 1:10 PM CDT Height 182.9 cm (6') 06/22/2018 1:10 PM CDT Body Mass Index 23.19 06/22/2018 1:10 PM CDT documented in this encounter Progress Notes * Toño Tillman MD - 06/22/2018 1:20 PM CDT Date of Visit: 06/22/2018 Name: Olman Beth : 1955 Medical Record: [id number] Correspondence: Papi Cannon MD PAST MEDICAL HISTORY 1.?Syncope. 2. Hypertension 3. Former cigarette use 4. R carotid artery stenosis (< 50%) Dear Papi Cannon MD: It was my pleasure to see Olman Beth today at the [facility] for a routine follow-up office visit for the above mentioned medical problems . Olman Beth is a 62 y.o. year old White male. Since the last visit the patient has done well. Hecontinues to work a 60 hour work week without any symptoms. He denies dyspnea, orthopnea, paroxysmal nocturnal dyspnea, peripheral edema, chest pain. Of note he has not had any recurrence symptoms ofsyncope, near syncope, or palpitations. He is now 3 years out from stopping smoking. On the last visit the patient had a carotid duplex at performed. This showed that the right internal carotid artery disease is consistent with a less than 50% stenosis. Normal left internal carotid artery, no evidence of significant plaque. ROS: The patient denies weight gain, weight loss, fevers or chills. Cardiac ROS is per HPI. The patient denies cough, SOB, wheezing or sputum production. All systems negative unless otherwise stated in the HPI CURRENT MEDICATIONS: Current Outpatient Medications: ??? bimatoprost (LUMIGAN) 0.01 % ophthalmic drops, INSTILL 1 DROP INTO BOTH EYES ONCE DAILY, Disp: , Rfl: ??? hydroCHLOROthiazide (HYDRODIURIL) 12.5 mg tablet, daily., Disp: , Rfl: ALLERGIES: No Known Allergies PHYSICAL EXAM: BP 99/55 Pulse 61 Temp 36.7 ??C (98 ??F) Ht 182.9 cm (6') Wt 77.6 kg (171 lb) SpO2 95% BMI 23.19 kg/m?? General Appearance: Well developed, well nourished, in no acute distress Head: Normocephalic, atraumatic Eyes: PERRLA, conjunctiva/corneas clear, EOM's intact, both eyes, anicteric Throat: Lips, mucosa, and tongue normal; teeth and gums normal, mucous membranes moist. Neck: Supple, no adenopathy; No thyromegaly; normal carotid upstroke and contour, no carotid bruits, there was no jugular venousdistention Lungs: Clear to auscultation and percussion. There were no rales, rhonchi, nor wheezes. Cardiovascular: The left ventricular impulse was not displaced. Normal S1 and S2 There were no murmurs, rubs nor gallops. Abdomen: Soft, non-tender, normal active bowel sounds, no masses, no organomegaly, non-distended Extremities: No cyanosis, clubbing or edema Skin: No rashes, lesions or bruising. Laboratory Data WBC Date Value Ref Range Status 01/29/2017 9.28 3.80 - 9.90 K/cumm Final Hgb Date Value Ref Range Status 01/29/2017 11.8 (L) 13.0 - 17.5 g/dL Final MCV Date Value Ref Range Status 01/29/2017 95.3 81.3 - 96.4 fL Final Plt Date Value Ref Range Status 01/29/2017 241 150 - 400 K/cumm Final Sodium Date Value Ref Range Status 01/29/2017 135 135 - 145 mmol/L Final Potassium, pl Date Value Ref Range Status 01/29/2017 3.8 3.3 - 4.9 mmol/L Final Comment: Hemolyzed; (+++); potassium value may be falsely elevated by as much as 0.6 - 1.0 mmol/L. Suggest redraw and reanalysis. BUN Date Value Ref Range Status 01/29/2017 20 8 - 25 mg/dL Final Creatinine Date Value Ref Range Status 01/29/2017 0.98 0.80 - 1.30 mg/dL Final 08/24/2015 0.94 0.80 - 1.30 mg/dl ALT Date Value Ref Range Status 08/24/2015 17 7 - 55 Units/L AST Date Value Ref Range Status 08/24/2015 16 10 - 50 Units/L No results found for: CHOL, POCCHOL, HDL, POCHDL, LDLCALC, CLDL, HIRISKLDL, LDL, LDLC, LDLDIRECT, LDLMED, LDLP, POCLDL, SCRLDL, SMALLLDLP, TOTLDLC, TRIG, POCTRIG ASSESSMENT/PLAN: 1.?History of syncope, concern for vasovagal syncope. His prior work up included an ischemic evaluation, 30 day monitor and MRI. No episodes of hypotension. None of his testing has disclosed an etiology for his syncope. He does have < 50% right carotid artery stenosis - I do not hear a bruit.Further, this is uncommon for carotid artery stenosis to cause presyncope or syncope. 3. Hypertension. He will continue hydrochlorothiazide 12.5mg daily. BP is relatively low today - previously he was at target. Given the absence of symptoms I will not change his hypertension regimen at this time. ?? I plan to see the patient back in 12 months unless otherwise indicated Toño Tillman MD Chief, Cardiovascular Division forging roll operator [facility] documented in this encounter Plan of Treatment Not on file documented as of this encounter Visit Diagnoses Diagnosis Bruit of left carotid artery- Primary Essential hypertension Unspecified essential hypertension Vasovagal syncope Syncope and collapse documented in this encounter Care Teams Insulation Manager Relationship Specialty Start Date End Date Papi Cannon MD [address] [address] PCP - General 03/24/17 documented as of this encounter
--- OUTSIDE RECORDS SUMMARY | 2024-03-19 01:58 | XMS_ITS | Encounter Summary ---
Author Organization [facility] Healthcare Address [address] [place] [address] Care Team Providers Care Cardiac Surgeon Name Role Phone Papi Cannon MD Primary Care Provider [phone]- [phone] Reason for Visit * Reason Comments Head Injury Encounter Details Date Type Department Care Team (Late st Contact Info) Description 10/12/2023 12:03 PM CDT - 10/12/2023 2:41 PM CDT Emergency [facility] Emergency Department [address] [place] [address] Trent Armendariz MD [address] [place] [id number] Closed head injury, initial encounter (Primary Dx); Sprain of cervical neck, initial encounter Discharge Disposition: Discharge to home or self care Social History Tobacco Use Types Packs/Day Years Used Date Smoking Tobacco: Former Smokeless Tobacco: Never Personal Safety Answer Date Recorded Have you ever been in or are you currently in a harmful physical or emotional relationship or is someone making you feel afraid or unsafe? 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 Gender Identity Not on file Sexual Orientation Not on file documented as of this encounter Last Filed Vital Signs Vital Sign Reading Time Taken Comments Blood Pressure 177/105 10/12/2023 2:30 PM CDT Pulse 58 10/12/2023 2:30 PM CDT Temperature 36.5 ??C (97.7 ??F) 10/12/2023 1 2:11 PM CDT Respiratory Rate 18 10/12/2023 2:30 PM CDT Oxygen Saturation 99% 10/12/2023 2:30 PM CDT Inhaled Oxygen Concentration - - Weight 75.6 kg (166 lb 10.7 oz) 024 12:11 PM CDT Height 180.3 cm (5' 11 ) 10/12/2023 12: 11 PM CDT Body Mass Index 23.25 10/12/2023 12:11 PM CDT documented in this encounter Discharge Instructions * Attachments The following attachments cannot be sent through Care Everywhere. * Cervical Strain (Discharge Care) (Faroese) * Contusion in Adults (Discharge Care) (Faroese) documented in this encounter Medications at Time of Discharge bimatoprost (LUMIGAN) 0.01 % ophthalmic drops INSTILL 1 DROP INTO BOTH EYES ONCE DAILY cholecalciferol 25 mcg (1,000 unit) tablet Take 1 tablet (1,000 Units total) by mouth daily FLUoxetine 10 mg capsule Take 1 tablet/capsule (10 mg total) by mouth daily 08/18/2023 hydroCHLOROthiazid e (HYDRODIURIL) 12.5 mg tablet daily. 03/24/2017 HYDROcodone-acetam inophen (NORCO) 5-325 mg per tabletIndications: Pain Take 1 tablet by mouth every 6 (six) hours as needed for pain 10 tablet 10/12/2023 multivit-min/folic /vit K/lycop (MEN'S 50 PLUS MULTIVITAMIN ORAL) Take 1 tablet by mouth daily dexAMETHasone (DECADRON) 4 mg tablet Take 1 tablet (4 mg total) by mouth daily with breakfast for 5 days 5 tablet 10/13/2023 4 documented as of this encounter Ordered Prescriptions Prescription Sig Dispense Quantity Refills Last Filled Start Date End Date HYDROcodone-acetam inophen (NORCO) 5-325 mg per tabletIndications: Pain Take 1 tablet by mouth every 6 (six) hours as needed for pain 10 tablet 10/12/2023 dexAMETHasone (DECADRON) 4 mg tablet Take 1 tablet (4 mg total) by mouth daily with breakfast for 5 days 5 tablet 10/13/2023 4 documented in this encounter Discharge Disposition Disposition Code Departure Means Destination Comment s Discharge to home or self care documented in this encounter ED Notes * Trent Armendariz MD - 10/12/2023 1:45 PM CDT HPI Chief Complaint Patient presents with Head Injury Patient is a very pleasant 68-year-old male who presents with complaint of headache, neck pain, shoulder pain, he was clearing some ground in his tractor when he was turned around a tree fell and hithim in the left side of the head, left shoulder. Pain is localized to the left side of the neck mostly, it is 0/10 when he is at rest and moderate to severe when he tries to turn his head to the leftside. He denies any neurologic deficits currently, denies any chest pain, shortness of breath, denies in the blood tenderness, no other complaints. Patient History: Patient Active Problem List Diagnosis Date Noted Carotid bruit 10/20/2017 Syncope 08/24/2015 No past medical history on file. No past surgical history on file. Family History Problem Relation Age of Onset Heart disease Mother Family history of cardiac disorder - (Added by TW Conv) Heart disease Father Family history of cardiac disorder - (Added by TW Conv) Social History Tobacco Use Smoking status: Former Smokeless tobacco: Never Substance and Sexual Activity Alcohol use: Not on file Drug use: Not on file Sexual activity: Not on file Social History Social History Narrative Not on file Review of Systems Review of Systems All other systems reviewed and are negative. Physical Exam ED Triage Vitals [10/12/23 1211] Temp Pulse Resp BP SpO2 36.5 ??C (97.7 ??F) 62 18 (!) 154/111 99 % Temp src Heart Rate Source Patient Position BP Location FiO2 (%) Oral -- -- -- -- Height Height Method Weight Weight Method 1.803 m (5' 11 ) Stated 75.6 kg (166 lb 10.7 oz) Standing scale Physical Exam Vitals and nursing note reviewed. Constitutional: General: He is not in acute distress. Appearance: Normal appearance. He is well-developed. He is not ill-appearing, toxic-appearing or diaphoretic. HENT: Head: Normocephalic and atraumatic. Nose: Nose normal. Eyes: Extraocular Movements: Extraocular movements intact. Conjunctiva/sclera: Conjunctivae normal. Pupils: Pupils are equal, round, and reactive to light. Cardiovascular: Rate and Rhythm: Normal rate and regular rhythm. Heart sounds: Normal heart sounds. No murmur heard. Pulmonary: Effort: Pulmonary effort is normal. No respiratory distress. Breath sounds: Normal breath sounds. No wheezing, rhonchi or rales. Abdominal: Palpations: Abdomen is soft. Tenderness: There is no abdominal tenderness. There is no guarding or rebound. Musculoskeletal: General: No swelling. Normal range of motion. Cervical back: Tenderness (Left trapezius, no midline tenderness.) present. Skin: General: Skin is warm and dry. Neurological: General: No focal deficit present. Mental Status: He is alert and oriented to person, place, and time. Psychiatric: Behavior: Behavior normal. MDM Medical Decision Making Amount and/or Complexity of Data Reviewed Radiology: ordered. Decision-making details documented in ED Course. Risk Prescription drug management. ED Course as of 10/12/23 1428 Time: 10/11 1250 Comment: IMPRESSION: 1. No acute intracranial process. 2. No acute fracture of the cervical spine with spondylolisthesis potentially degenerative in nature in association with spondylosis and degenerative disc disease and without acute soft tissue abnormality though correlate with clinical context to include point tenderness at above-described levels, and, if further clinical concern for acute traumatic subluxation of the cervical spine, MRI of the cervical spine without contrast can be performed for further evaluation. By: Trent Armendariz MD Time: 10/11 1334 Value: XR Shoulder Left 2 or More Views Comment: IMPRESSION: No acute osseous abnormality. By: Trent Armendariz MD Time: 10/11 1421 Comment: Patient is a very pleasant 68-year-old male who presented with head injury, neck injury from a moderately-sized tree limb that hit him on the left- sided head and has left shoulder. Differential diagnosis include sprain, strain, fracture. There is no intracranial injury, there is no evidence of cervical spine fracture. He has some spondylolisthesis which is likely chronic in nature given his physical exam. There is no point tenderness at the levels described, all tenderness is in the left trapezoid. Patient will be given analgesia, steroids. Soft collar given for symptom management. No other complaints, no other emergent management indicated. Patient will be discharged home. He doesnot have any neurologic deficits. By: Trent Armendariz MD Final diagnoses: Closed head injury, initial encounter Sprain of cervical neck, initial encounter Trent Armendarzi MD 10/12/23 1429 * Charlotte Andrews RN - 10/12/2023 12:08 PM CDT Patient reports he was clearing some ground on tractor and a tree hit him in the head. Denies LOC. Reports impact broke head phones and glasses. Reports dizziness after event. Reports neck, head, andleft shoulder pain. Pain 6/10. Alert and oriented x 4. Denies taking blood thinners. C-collar placed prior to rooming patient. aware of patient. documented in this encounter Plan of Treatment Not on file documented as of this encounter Procedures Procedure Name Priority Date/Time Associated Diagnosis Comments XR SHOULDER LEFT 2 OR MORE VIEWS ED 10/12/2023 1:[address] CERVICAL SPINE WO CONTRAST ED 10/12/2023 12:[address] HEAD WO CONTRAST ED 10/12/2023 1 2:21 PM CDT documented in this encounter Results * XR Shoulder Left 2 or More Views (10/12/2023 1:09 PM CDT) Anatomical Region Laterality Modality Upper Extremities, Shoulder Left Comp uted Radiography 10/12/2023 1:14 PM CDT Narrative 10/12/2023 1:26 PM CDT EXAM DESCRIPTION: XR SHOULDER LEFT 2 OR MORE VIEWS REASON FOR STUDY: Pain with trauma ?? Pt states tree fell down and hit him having shoulder pain today ?? TECHNIQUE: 3 ??radiographic view(s) of the ??left shoulder . COMPARISON: No comparison. FINDINGS: BONES/JOINTS: There is no acute fracture, malalignment or osseous abnormality. Mild degenerative change along the inferior glenoid. SOFT TISSUES: Within normal limits. ?? IMPRESSION: No acute osseous abnormality. THIS IS AN ELECTRONICALLY VERIFIED FINAL REPORT 10/12/2023 1:26 PM - Electronically signed by ??Rafaela Prakash M.D. LC: OLIVERIO D: ??10/12/2023 1:26 PM T: ??10/12/2023 1:26 PM Report ID: [id number] Reading Location: ??[id number] Procedure Note Jodee Prakash MD - 10/12/2023 EXAM DESCRIPTION: XR SHOULDER LEFT 2 OR MORE VIEWS REASON FOR STUDY: Pain with trauma Pt states tree fell down and hit him having shoulder pain today TECHNIQUE: 3 radiographic view(s) of the left shoulder . COMPARISON: No comparison. FINDINGS: BONES/JOINTS: There is no acute fracture, malalignment orosseous abnormality. Mild degenerative change along the inferior glenoid. SOFT TISSUES: Within normal limits. IMPRESSION: No acute osseous abnormality. THIS IS AN ELECTRONICALLY VERIFIED FINAL REPORT 10/12/2023 1:26 PM - Electronically signed by Rafaela Prakash M.D. LC: OLIVERIO Report ID: [id number] Reading Location: [id number] Trent Armendariz MD IMG XR PROCEDURES Final Result * CT Cervical Spine WO Contrast (10/12/2023 12:21 PM CDT) Anatomical Region Laterality Modality Spine N/A Computed Tomogra phy 10/12/2023 12:2 3 PM CDT Narrative 10/12/2023 12:31 PM CDT EXAM DESCRIPTION: ?? CT HEAD WO CONTRAST; CT CERVICAL SPINE WO CONTRAST REASON FOR STUDY: Struck in the head with tree today without LOC though with post event dizziness. ??Acute head, neck, and left shoulder pain. ??Patient reportedly alert and oriented x4. ??No provided focal neurologic deficits. ?? Cervical immobilization collar. ??Patient denies anticoagulation. TECHNIQUE: Axial images through the head and cervical spine, with sagittal and coronal reformatted images. Automated exposure control was used as a dose optimization technique for this examination. COMPARISON: No prior head or cervical spine imaging available at time of interpretation. FINDINGS: HEAD: BRAIN: ??No acute intra-axial hemorrhage. No edema, mass effect, midline shift, or herniation. ?No evidence of acute territorial ischemia/infarct. ?No suspicious focal white matter lesions with preservation of the whipple-white junction. EXTRA-AXIAL SPACES: ??No extra-axial fluid collection. No unenhanced CT evidence of extra-axial mass. ?? Cavum septum pellucidum et vergae. CALVARIUM: ??No acute calvarial fracture SINUSES/MASTOIDS: ??Multicompartmental variable mucosal thickening and scattered opacification. ??Mastoid air cells well-developed and well aerated. ORBITS: ??No acute abnormality. Ocular lenses and globes normal in conformation and position. OTHER: ??No other significant abnormality. CERVICAL SPINE: ALIGNMENT: ??Variable minimal retrolisthesis C3 on C4 and C5 on C6 and minimal-mild anterolisthesis C7 on T1 with preservation of the cervical lordosis. VERTEBRAE: ??Diffuse osteopenia. ??No acute fracture. ??Vertebral body heights maintained. ??Spondylosis. DISCS: ??Multilevel variable loss of intervertebral disc height. HARDWARE: ??None in the cervical spine. INDIVIDUAL DISC LEVELS: ??Constellation of spondylolisthesis, posterior disc osteophyte complexes, annular disc bulges and/or focal herniations, facet arthropathy, and uncovertebral joint disease produces multilevel variable spinal canal stenosis and neural foraminal stenosis. ?? UPPER THORACIC: ??Incompletely imaged. No significant osseous spinal stenosis or osseous neural foraminal stenosis. LUNG APICES: ??Biapical pleuroparenchymal scarring and emphysematous changes. NECK SOFT TISSUES: ??CT evidence of anemia. ??Correlate with hemoglobin/hematocrit. OTHER: ??No other significant findings. IMPRESSION: 1. ?? No acute intracranial process. 2. ?? No acute fracture of the cervical spine with spondylolisthesis potentially degenerative in nature in association with spondylosis and degenerative disc disease and without acute soft tissue abnormality though correlate with clinical context to include point tenderness at above-described levels, and, if further clinical concern for acute traumatic subluxation of the cervical spine, MRI of the cervical spine without contrast can be performed for further evaluation. THIS IS AN ELECTRONICALLY VERIFIED FINAL REPORT 10/12/2023 12:31 PM - Electronically signed by ??Emeka Grady M.D. KATIE: KATIE D: ??10/12/2023 12:31 PM T: ??10/12/2023 12:31 PM Report ID: [id number] Reading Location: ??[id number] Procedure Note Emeka Grady MD - 10/12/2023 EXAM DESCRIPTION: CT HEAD WO CONTRAST; CT CERVICAL SPINE WO CONTRAST REASON FOR STUDY: Struck in the head with tree today without LOC thoughwith post event dizziness. Acute head, neck, and left shoulder pain. Patient reportedly alert and oriented x4. No provided focal neurologic deficits. Cervical immobilization collar. Patient denies anticoagulation. TECHNIQUE: Axial images through the head and cervical spine, with sagittaland coronal reformatted images. Automated exposure control was used as a dose optimization technique for this examination. COMPARISON: No prior head or cervical spine imaging available at time of interpretation. FINDINGS: HEAD: BRAIN: No acute intra-axial hemorrhage. No edema, mass effect, midlineshift, or herniation. No evidence of acute territorial ischemia/infarct. No suspicious focal white matter lesions with preservation of the whipple-white junction. EXTRA-AXIAL SPACES: No extra-axial fluid collection. No unenhanced CT evidence of extra-axial mass. Cavum septum pellucidum et vergae. CALVARIUM: No acute calvarial fracture SINUSES/MASTOIDS: Multicompartmental variable mucosal thickening and scattered opacification. Mastoid air cells well-developed and wellaerated. ORBITS: No acute abnormality. Ocular lenses and globes normal inconformation and position. OTHER: No other significant abnormality. CERVICAL SPINE: ALIGNMENT: Variable minimal retrolisthesis C3 on C4 and C5 on C6 and minimal-mild anterolisthesis C7 on T1 with preservation of the cervical lordosis. VERTEBRAE: Diffuse osteopenia. No acute fracture. Vertebral bodyheights maintained. Spondylosis. DISCS: Multilevel variable loss of intervertebral disc height. HARDWARE: None in the cervical spine. INDIVIDUAL DISC LEVELS: Constellation of spondylolisthesis, posteriordisc osteophyte complexes, annular disc bulges and/or focal herniations, facet arthropathy, and uncovertebral joint disease produces multilevel variable spinal canal stenosis and neural foraminal stenosis. UPPER THORACIC: Incompletely imaged. No significant osseous spinalstenosis or osseous neural foraminal stenosis. LUNG APICES: Biapical pleuroparenchymal scarring and emphysematouschanges. NECK SOFT TISSUES: CT evidence of anemia. Correlate with hemoglobin/hematocrit. OTHER: No other significant findings. IMPRESSION: 1. No acute intracranial process. 2. No acute fracture of the cervical spine with spondylolisthesis potentially degenerative in nature in association with spondylosis and degenerative disc disease and without acute soft tissue abnormality though correlate with clinical context to include point tenderness atabove-described levels, and, if further clinical concern for acute traumatic subluxationof the cervical spine, MRI of the cervical spine without contrast can be performed for further evaluation. THIS IS AN ELECTRONICALLY VERIFIED FINAL REPORT 10/12/2023 12:31 PM - Electronically signed by Emeka Grady M.D. KATIE: KATIE Report ID: [id number] Reading Location: [id number] Trent Armendariz MD IM CT PROCEDURES Final Result * CT Head WO Contrast (10/12/2023 12:21 PM CDT) Anatomical Region Laterality Modality Head and Neck N/A Computed Tomogra phy 10/12/2023 12:2 3 PM CDT Narrative 10/12/2023 12:31 PM CDT EXAM DESCRIPTION: ?? CT HEAD WO CONTRAST; CT CERVICAL SPINE WO CONTRAST REASON FOR STUDY: Struck in the head with tree today without LOC though with post event dizziness. ??Acute head, neck, and left shoulder pain. ??Patient reportedly alert and oriented x4. ??No provided focal neurologic deficits. ?? Cervical immobilization collar. ??Patient denies anticoagulation. TECHNIQUE: Axial images through the head and cervical spine, with sagittal and coronal reformatted images. Automated exposure control was used as a dose optimization technique for this examination. COMPARISON: No prior head or cervical spine imaging available at time of interpretation. FINDINGS: HEAD: BRAIN: ??No acute intra-axial hemorrhage. No edema, mass effect, midline shift, or herniation. ?No evidence of acute territorial ischemia/infarct. ?No suspicious focal white matter lesions with preservation of the whipple-white junction. EXTRA-AXIAL SPACES: ??No extra-axial fluid collection. No unenhanced CT evidence of extra-axial mass. ?? Cavum septum pellucidum et vergae. CALVARIUM: ??No acute calvarial fracture SINUSES/MASTOIDS: ??Multicompartmental variable mucosal thickening and scattered opacification. ??Mastoid air cells well-developed and well aerated. ORBITS: ??No acute abnormality. Ocular lenses and globes normal in conformation and position. OTHER: ??No other significant abnormality. CERVICAL SPINE: ALIGNMENT: ??Variable minimal retrolisthesis C3 on C4 and C5 on C6 and minimal-mild anterolisthesis C7 on T1 with preservation of the cervical lordosis. VERTEBRAE: ??Diffuse osteopenia. ??No acute fracture. ??Vertebral body heights maintained. ??Spondylosis. DISCS: ??Multilevel variable loss of intervertebral disc height. HARDWARE: ??None in the cervical spine. INDIVIDUAL DISC LEVELS: ??Constellation of spondylolisthesis, posterior disc osteophyte complexes, annular disc bulges and/or focal herniations, facet arthropathy, and uncovertebral joint disease produces multilevel variable spinal canal stenosis and neural foraminal stenosis. ?? UPPER THORACIC: ??Incompletely imaged. No significant osseous spinal stenosis or osseous neural foraminal stenosis. LUNG APICES: ??Biapical pleuroparenchymal scarring and emphysematous changes. NECK SOFT TISSUES: ??CT evidence of anemia. ??Correlate with hemoglobin/hematocrit. OTHER: ??No other significant findings. IMPRESSION: 1. ?? No acute intracranial process. 2. ?? No acute fracture of the cervical spine with spondylolisthesis potentially degenerative in nature in association with spondylosis and degenerative disc disease and without acute soft tissue abnormality though correlate with clinical context to include point tenderness at above-described levels, and, if further clinical concern for acute traumatic subluxation of the cervical spine, MRI of the cervical spine without contrast can be performed for further evaluation. THIS IS AN ELECTRONICALLY VERIFIED FINAL REPORT 10/12/2023 12:31 PM - Electronically signed by ??Emeka Grady M.D. KATIE: KATIE D: ??10/12/2023 12:31 PM T: ??10/12/2023 12:31 PM Report ID: [id number] Reading Location: ??[id number] Procedure Note Emeka Grady MD - 10/12/2023 EXAM DESCRIPTION: CT HEAD WO CONTRAST; CT CERVICAL SPINE WO CONTRAST REASON FOR STUDY: Struck in the head with tree today without LOC thoughwith post event dizziness. Acute head, neck, and left shoulder pain. Patient reportedly alert and oriented x4. No provided focal neurologic deficits. Cervical immobilization collar. Patient denies anticoagulation. TECHNIQUE: Axial images through the head and cervical spine, with sagittaland coronal reformatted images. Automated exposure control was used as a dose optimization technique for this examination. COMPARISON: No prior head or cervical spine imaging available at time of interpretation. FINDINGS: HEAD: BRAIN: No acute intra-axial hemorrhage. No edema, mass effect, midlineshift, or herniation. No evidence of acute territorial ischemia/infarct. No suspicious focal white matter lesions with preservation of the whipple-white junction. EXTRA-AXIAL SPACES: No extra-axial fluid collection. No unenhanced CT evidence of extra-axial mass. Cavum septum pellucidum et vergae. CALVARIUM: No acute calvarial fracture SINUSES/MASTOIDS: Multicompartmental variable mucosal thickening and scattered opacification. Mastoid air cells well-developed and wellaerated. ORBITS: No acute abnormality. Ocular lenses and globes normal inconformation and position. OTHER: No other significant abnormality. CERVICAL SPINE: ALIGNMENT: Variable minimal retrolisthesis C3 on C4 and C5 on C6 and minimal-mild anterolisthesis C7 on T1 with preservation of the cervical lordosis. VERTEBRAE: Diffuse osteopenia. No acute fracture. Vertebral bodyheights maintained. Spondylosis. DISCS: Multilevel variable loss of intervertebral disc height. HARDWARE: None in the cervical spine. INDIVIDUAL DISC LEVELS: Constellation of spondylolisthesis, posteriordisc osteophyte complexes, annular disc bulges and/or focal herniations, facet arthropathy, and uncovertebral joint disease produces multilevel variable spinal canal stenosis and neural foraminal stenosis. UPPER THORACIC: Incompletely imaged. No significant osseous spinalstenosis or osseous neural foraminal stenosis. LUNG APICES: Biapical pleuroparenchymal scarring and emphysematouschanges. NECK SOFT TISSUES: CT evidence of anemia. Correlate with hemoglobin/hematocrit. OTHER: No other significant findings. IMPRESSION: 1. No acute intracranial process. 2. No acute fracture of the cervical spine with spondylolisthesis potentially degenerative in nature in association with spondylosis and degenerative disc disease and without acute soft tissue abnormality though correlate with clinical context to include point tenderness atabove-described levels, and, if further clinical concern for acute traumatic subluxationof the cervical spine, MRI of the cervical spine without contrast can be performed for further evaluation. THIS IS AN ELECTRONICALLY VERIFIED FINAL REPORT 10/12/2023 12:31 PM - Electronically signed by Emeka Grady M.D. KATIE: KATIE Report ID: [id number] Reading Location: [id number] Trent Armendariz MD IM CT PROCEDURES Final Result documented in this encounter Visit Diagnoses Diagnosis Closed head injury, initial encounter- Primary Sprain of cervical neck, initial encounter documented in this encounter Administered Medications Inactive Administered Medications - up to 3 most recent administrations Medication Order MAR Action Action Date Dose Rate Site dexAMETHasone (DECADRON) 4 mg/mL injection 8 mg 8 mg, intravenous, Administer over 2 Minutes, Once, On [place]ilia 10/12/23 at 1335, For 1 dose Given 10/12/2023 1:48 PM CDT 8 mg ketorolac (TORADOL) 30 mg/mL injection 15 mg 15 mg, intravenous, Once, On [place]ilia 10/12/23 at 1335, For 1 dose, For Adult IV push, administer over 15 seconds Given 10/12/2023 1:49 PM CDT 15 mg documented in this encounter Historical Medications * This list may reflect changes made after this encounter. multivit-min/folic/ vit K/lycop (MEN'S 50 PLUS MULTIVITAMIN ORAL) Take 1 tablet by mouth daily cholecalciferol 25 mcg (1,000 unit) tablet Take 1 tablet (1,000 Units total) by mouth daily FLUoxetine 10 mg capsule Take 1 tablet/capsu le (10 mg total) by mouth daily 08/18/2023 added in this encounter Active and Recently Administered Medications Times are shown in CDT. Scheduled Medication Order 10/10/2023 10/11/2023 10/12/2023 dexAMETHasone (DECADRON) 4 mg/mL injection 8 mg (COMPLETED) 8 mg, intravenous, Administer over 2 Minutes, Once, On Basilia 10/12/23 at 1335, For 1 dose 1348 (Given - Provid er: Charlotte Andrews RN) ketorolac (TORADOL) 30 mg/mL injection 15 mg (COMPLETED) 15 mg, intravenous, Once, On Basilia 10/12/23 at 1335, For 1 dose, For Adult IV push, administer over 15 seconds 1349 (Given - Provid er: Charlotte Andrews RN) documented in this encounter Care Teams Cardiac Surgeon Relationship Specialty Start Date End Date Papi Cannon MD [address] [facility] [address] [place] [address] PCP - General 03/24/17 documented as of this encounter
--- OUTSIDE RECORDS SUMMARY | 2024-03-19 01:58 | XMS_ITS | Encounter Summary ---
Author Organization [facility] Address [address] [place] [address] Care Team Providers Care Security Professional Name Role Phone Papi Cannon MD Primary Care Provider +1- [phone] Encounter Details Date Type Department Care Team (Latest Contact Info) Description 02/08/2017 2:03 PM JAVA PROJECT MANAGER - 02/08/2017 11:59 PM JAVA PROJECT MANAGER Hospital Encounter MERGED WITH [facility] [phone] Toño Tillman MD [address] [address] Discharge Disposition: Discharge to home or self care Social History Tobacco Use Types Packs/Day Years Used Date Smoking Tobacco: Never Assessed Sex and Gender Information Value Date Recorded Sex Assigned at Not on file Legal Sex 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 Gender Identity Not on file Sexual Orientation Not on file documented as of this encounter Discharge Disposition Disposition Code Departure Means Destination Discharge to home or self care documented in this encounter Plan of Treatment Not on file documented as of this encounter Procedures Procedure Name Priority Date/Time Associated Diagnosis Comments STRESS ECHO EXERCISE W DOPPL ER/CF WO CONTRAST 02/08/2017 documented in this encounter Results * STRESS ECHO EXERCISE W DOPPLER/CF WO CONTRAST (02/08/2017) Anatomical Region Laterality Modality Echocardiography us Provider Scanning CV ECHO PROCEDURES Final Resul t documented in this encounter Visit Diagnoses Not on filedocumented in this encounter Care Teams Security Professional Relationship Specialty Start Date End Date Papi Cannon MD [address] [place] [address] PCP - General 02/08/17 02/08/17 documented as of this encounter
--- OUTSIDE RECORDS SUMMARY | 2024-03-19 01:58 | XMS_ITS | Encounter Summary ---
Author Organization [facility] Facility Care Team Providers Care Campaign Management Specialist Name Role Phone Unavailable Primary Care Provider Unavailabl e Encounter Details Date Type Department Care Team (Late st Contact Info) Description 08/24/2015 - 08/24/2015 11:59 PM CDT Hospital Encounter [facility] Toño Abdi MD [address] [address] Syncope and collapse Social History Tobacco Use Types Packs/Day Years Used Date Smoking Tobacco: Never Assessed Sex and Gender Information Value Date Recorded Sex Assigned at Not on file 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 Gender Identity Not on file Sexual Orientation Not on file documented as of this encounter Plan of Treatment Not on file documented as of this encounter Procedures Procedure Name Priority Date/Time Associated Diagnosis Comments SERUM THYROID-STIMULATING HORMONE (TSH) Routine 08/24/2015 5:15 PM CDT PLASMA COMPREHENSIVE METABOLIC PANEL Routine 08/24/2015 5:15 PM CDT BLOOD CELL COUNT Routine 08/24/2015 5:15 PM CDT DISCHARGE LABORATORY CUMULATIVE REPORT 08/24/2015 documented in this encounter Results * Serum thyroid-stimulating hormone (TSH) (08/24/2015 5:15 PM CDT) TSH 2.29 0.30 - 4.20 mcIUnits/m l HISTORICAL RESULTS Comment: Interpretive Data Hyperthyroid: ??<0.1 mcIUnit/mL Hypothyroid: ??>12.0 mcIUnit/mL Current interpretive data was last revised on 00. Serum 08/24/2015 5:15 PM CDT Toño Tillman MD LAB BLOOD ORDERABLES Cathleen l Result Performing Organization Address [facility] de Phone Number HISTORICAL RESULTS * Plasma comprehensive metabolic panel (08/24/2015 5:15 PM CDT) Sodium 145 135 - 145 mmol/L HISTORICAL RESULTS A. gap 10 2 - 15 mmol/L HISTORICAL RESULTS K, pl 3.9 3.3 - 4.9 mmol/L HISTORICAL RESULTS Glucose 79 70 - 199 mg/dl HISTORICAL RESULTS Chloride 106 97 - 110 mmol/L HISTORICAL RESULTS BUN 13 8 - 25 mg/dl HISTORICAL RESULTS CO2 29 22 - 32 mmol/L HISTORICAL RESULTS Creatinine 0.94 0.80 - 1.30 mg/dl HISTORICAL RESULTS Calcium 9.5 8.5 - 10.3 mg/dl HISTORICAL RESULTS Protein, pl 7.1 6.5 - 8.5 g/dl HISTORICAL RESULTS Alb 4.4 3.5 - 5.0 g/dl HISTORICAL RESULTS Bilirubin 0.3 0.1 - 1.2 mg/dl HISTORICAL RESULTS Alk phos 51 40 - 130 Units/L HISTORICAL RESULTS AST 16 10 - 50 Units/L HISTORICAL RESULTS ALT 17 7 - 55 Units/L HISTORICAL RESULTS Plasma 08/24/2015 5:15 PM CDT Toño Tillman MD LAB BLOOD ORDERABLES Cathleen l Result Performing Organization Address [facility] de Phone Number HISTORICAL RESULTS * (ABNORMAL) Blood cell count [CBC] express (08/24/2015 5:15 PM CDT) WBC 7.7 3.8 - 9.9 K/cumm HISTORICAL RESULTS RBC 4.16(L) 4.30 - 5.80 M/cumm HISTORICAL RESULTS Hgb 13.4 13.0 - 17.5 g/dl HISTORICAL RESULTS Hct 40.3 38.9 - 50.3 % HISTORICAL RESULTS MCV 96.9(H) 81.3 - 96.4 fl HISTORICAL RESULTS MCH 32.2 27.1 - 33.3 pg HISTORICAL RESULTS MCHC 33.3 32.3 - 35.7 g/dl HISTORICAL RESULTS Rdw 12.9 11.1 - 14.9 % HISTORICAL RESULTS RDW 46.3 35.7 - 48.1 fl HISTORICAL RESULTS NRBC 0.0 0.0 - 0.2 % HISTORIC AL RESULTS NRBC, abs 0.00 0.00 - 0.01 K/cumm HISTORICAL RESULTS Platelets 229 150 - 400 K/cumm HISTORICAL RESULTS MPV 9.8 9.1 - 12.3 fl HISTORICAL RESULTS Blood specimen (specimen) 08/24/2015 5:15 PM CDT Toño Tillman MD LAB BLOOD ORDERABLES Cathleen l Result HISTORICAL RESULTS * DISCHARGE LABORATORY CUMULATIVE REPORT (08/24/2015) Narrative 08/24/2015 Ordered by an unspecified provider. us Historical Provider LAB BLOOD ORDERABLES Cathleen l Result documented in this encounter Visit Diagnoses Diagnosis Syncope and collapse documented in this encounter
--- OUTSIDE RECORDS SUMMARY | 2024-03-19 01:58 | XMS_ITS | Referral Summary ---
Author Organization [facility] Address [address] [place] [id number] Care Team Providers Care Application Security Specialist Name Role Phone Papi Cannon MD Primary Care Provider +1- [phone] Allergies No known active allergies Medications hydroCHLOROthiazi de (HYDRODIURIL) 12.5 mg tablet daily. 7 Active bimatoprost (LUMIGAN) 0.01 % ophthalmic drops INSTILL 1 DROP INTO BOTH EYES ONCE DAILY Active FLUoxetine 10 mg capsule Take 1 tablet/capsu le (10 mg total) by mouth daily 4 Active cholecalciferol 25 mcg (1,000 unit) tablet Take 1 tablet (1,000 Units total) by mouth daily Active multivit-min/foli c/vit K/lycop (MEN'S 50 PLUS MULTIVITAMIN ORAL) Take 1 tablet by mouth daily Active HYDROcodone-aceta minophen (NORCO) 5-325 mg per tabletIndications :Pain Take 1 tablet by mouth every 6 (six) hours as needed for pain 10 tablet 4 Active Active Problems Problem Noted Date Diagnosed Date Carotid bruit 10/20/2017 Syncope 08/24/2015 Resolved Problems Problem Noted Date Diagnosed Date Resolved Date Hypertension 05/06/2016 06/22/2018 Social History Tobacco Use Types Packs/Day Years [...] on file 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
--- OUTSIDE RECORDS SUMMARY | 2024-03-19 01:58 | XMS_ITS | Encounter Summary ---
Author Organization [facility] Address [address] [place] [address] Phone Care Team Providers Care Resident Care Spec Name Role Phone Papi Cannon MD Primary Care Provider +1- [phone] Reason for Referral * Diagnostic Imaging (Routine) - Closed Specialty Diagnoses / Procedures Referred By Contac t Referred To Contact Diagnoses Bruit of left carotid artery Procedures US Carotids Bilateral Cuauhtemoc Ramirez MD Phone: tel: fax: [address] [address] Referral ID Status Reason Start Date Expiration Date Visits Re quested Visits Authorized [id number] Closed 10/20/2017 05/01/2019 1 1 Encounter Details Date Type Department Care Team (Late st Contact Info) Description 10/20/2017 4:00 PM CDT Office Visit [facility] Cardiology [address] [facility] Advanced Medicine 8th [place] [address] [place] [address] [place] [address] [address] [place] [id number] Vasovagal syncope (Primary Dx); Essential hypertension; Bruit of left carotid artery Social History Tobacco Use Types Packs/Day Years Used Date Smoking Tobacco: Former Smokeless Tobacco: Never Sex and Gender Information Value Date Recorded Sex Assigned at Not on file 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 Gender Identity Not on file Sexual Orientation Not on file documented as of this encounter Last Filed Vital Signs Vital Sign Reading Time Taken Comments Blood Pressure 127/82 10/20/2017 4:05 PM CDT Pulse 59 10/20/2017 4:05 PM CDT Temperature 36.8 ??C (98.3 ??F) 10/20/2017 4:05 PM CD T Respiratory Rate - - Oxygen Saturation 96% 10/20/2017 4:05 PM CDT Inhaled Oxygen Concentration - - Weight 79.6 kg (175 lb 6.4 oz) 10/20/2017 4:05 P M CDT Height 182.9 cm (6') 10/20/2017 4:05 PM CDT Body Mass Index 23.79 10/20/2017 4:05 PM CDT documented in this encounter Patient Instructions * Patient Instructions* Cuauhtemoc Ramirez MD - 10/20/2017 4:00 PM CDT We will order carotid ultrasound at your convenience. Additional testing or evaluation may be necessary after we review the results. No change in meds today. Next regular follow up in 6 months. documented in this encounter Progress Notes * Marguerite [place] MD - 10/20/2017 4:00 PM CDT Patient Name: Jose F Marie Provider: Cuauhtemoc Ramirez MD : 1955 Date of Service: 10/20/2017 Referring: Papi Cannon MD DIAGNOSES: 1. Syncope. 2. Hypertension 3. Former cigarette use INTERVAL HISTORY: Dear Dr. Papi Cannon MD I saw Jose F Marie today at the [facility]. Since his last visit, he has been doing well. He has not had any hospitalizations or emergency room visits. He has not had any recurrent episodes of syncope or near syncope. He denies chest pain, shortness or breath, orthopnea, PND or lower extremity edema. He check his blood pressure at home and denies any low or high readings. His blood pressure runs in the 120's/70's. ROS: A full Review of Systems was performed. All systems negative unless otherwise stated in the HPI. CURRENT MEDS: Current Outpatient Prescriptions: ??? bimatoprost (LUMIGAN) 0.01 % ophthalmic drops, INSTILL 1 DROP INTO BOTH EYES ONCE DAILY, Disp: , Rfl: ??? hydroCHLOROthiazide (HYDRODIURIL) 12.5 mg tablet, daily., Disp: , Rfl: PHYSICAL EXAM: BP 127/82 (BP Location: Left arm, Patient Position: Sitting) Pulse 59 Temp 36.8 ??C (98.3 ??F) (Oral) Ht 182.9 cm (6') Wt 79.6 kg (175 lb 6.4 oz) SpO2 96% BMI 23.79 kg/m?? Body mass index is 23.79 kg/m??. General: Well appearing and in no distress HEENT: Moist mucous membranes Neck: Supple, JVP normal, Carotid upstrokes brisk bilaterally. Left carotid bruit Respiratory: Clear to ausculation bilaterally; no wheezing/rales/rhonchi; respirations non-labored Cardiovascular: bradycardic, regular,normal PMI, normal S1 and S2. No S3 or S4. No murmurs or rubs. Gastrointestinal: soft, non-tender, no organomegaly, no abnormal aortic pulsation Extremities: warm and well perfused with no cyanosis, clubbing, or edema Neurologic: awake/alert, no focal deficits DATA: No new data ASSESSMENT & PLAN: 1. Syncope, concern for vasovagal syncope. His prior work up included an ischemic evaluation, 30 day monitor and MRI. No episodes of hypotension. None of his testing has disclosed an etiology for hissyncope. He does have a left carotid bruit on exam. Although it is uncommon for carotid artery stenosis to cause presyncope or syncope, we will obtain a carotid ultrasound. 2. Left carotid bruit. We will obtain a carotid ultrasound. Further recommendations pending review of results. He denies any TIA or stroke like symptoms. 3. Hypertension. He will continue hydrochlorothiazide 12.5mg daily. Thank you for allowing me to participate in the care of this patient. We will plan to see him back in 6 months. Please don't hesitate to contact us with any questions or concerns. Sincerely, Marguerite [place] MD Fellow Cosigned by Cuauhtemoc Ramirez MD at 10/20/2017 5:34 PM CDT Associated attestation - Cuauhtemoc Ramirez MD - 10/20/2017 5:34 PM CDT I personally interviewed and examined the patient and reviewed the case with the fellow on 10/20/17. I agree with the assessment and plan as outlined in the note. documented in this encounter Plan of Treatment Not on file documented as of this encounter Results * US Carotids Bilateral (10/26/2017 1:33 PM CDT) Anatomical Region Laterality Modality Vascular Bilateral Ultrasound 10/26/2017 1:02 PM CDT Narrative 10/26/2017 1:49 PM CDT [facility] - Department of Vascular Surgery, Vascular Laboratory [address] [place] [address] Carotid Duplex Ultrasound Report Patient Name: JOSE F MARIE : 1955 (62y 3m) Study Date: 10/26/2017 1:02:21 PM Gender: M Tech: VAHE MchughOS Location: Ref.Physician: CUAUHTEMOC RAMIREZ Height(Inch): BSA: Weight(LB): Quality: Adequate Order Physician: CUAUHTEMOC RAMIREZ Procedures: Carotid Report: Carotid duplex examination of the extracranial arteries was performed using 2D, color and spectral Doppler. Indications: left carotid bruit. Measurements: Right Carotid ? Left Carotid ? Measurement ?Value ?Units ? Measurement ?Value ? Units ? RT Prox CCA PSV ?81.50 ?cm/sec ?LT Prox CCA PSV ?120.00 ?cm/sec ? RT Distal CCA PSV ?84.40 ?cm/sec ?LT Distal CCA PSV ?115.00 ?cm/sec ? RT Prox ICA PSV ?76.20 ?cm/sec ?LT Prox ICA PSV ?79.20 ? cm/sec ? RT Prox ICA EDV ?32.20 ?cm/sec ?LT Prox ICA EDV ?27.60 ? cm/sec ? RT Mid ICA PSV ? 85.60 ?cm/sec ?LT Mid ICA PSV ? 76.20 ? cm/sec ? RT Mid ICA EDV ? 35.80 ?cm/sec ?LT Mid ICA EDV ? 36.90 ? cm/sec ? RT Distal ICA PSV ?75.60 ?cm/sec ?LT Distal ICA PSV ?59.10 ? cm/sec ? RT Distal ICA EDV ?33.40 ?cm/sec ?LT Distal ICA EDV ?23.20 ? cm/sec ? RT ECA PSV ? 48.70 ?cm/sec ?LT ECA PSV ? 69.80 ? cm/sec ? RT ICA/CCA ? 1.01 ? ratio ? LT ICA/CCA ? 0.69 ?ratio ? RT VERT PSV ?86.80 ?cm/sec ?LT VERT PSV ?31.10 ? cm/sec ? Findings: Performing Steamfitter Supervisor: Paty Branch, RVT. Dariana Bledsoe, RVT, RDMS. Rt Common Carotid Artery: The plaque in the right CCA appears to be homogenous and smooth. Rt Internal Carotid Artery: The plaque in the right internal carotid artery appears to be homogenous and smooth. Atherosclerotic changes of the right internal carotid artery without hemodynamically significant Doppler findings. <50% stenosis. Rt External Carotid Artery: Patent right external carotid artery with evidence of atherosclerotic disease present. Rt Vertebral Artery: The right vertebral artery is patent with antegrade flow. Lt Common Carotid Artery: The plaque in the left CCA appears to be homogenous and smooth. Lt Internal Carotid Artery: Duplex imaging of the left internal carotid artery is within normal limits without evidence of atherosclerotic disease. Lt External Carotid Artery: Patent left external carotid artery with evidence of atherosclerotic disease present. Lt Vertebral Artery: The left vertebral artery is patent with antegrade flow. Conclusions: Normal, antegrade flow is noted in bilateral vertebral arteries. The right internal carotid artery disease is consistent with a less than 50% stenosis. Normal left internal carotid artery, no evidence of significant plaque. History: Not identified. Previous Studies: No previous studies for comparison. Disclaimer: The signing physician has reviewed all images pertaining to this test. These images and this report will be retained in the patient chart by the Vascular Laboratory for the legally required time period. This chart constitutes the legal record of any testing performed. Electronically Signed By: Sen Kinney MD [facility] 2017-10-26 13:49:26 CDT CC: CC: Procedure Note Sen Kinney MD - 10/26/2017 [facility] - Department of Vascular Surgery,Vascular Laboratory [address] [place] [address] Carotid Duplex Ultrasound Report Patient Name: JOSE F MARIEPatient ID: [id number] : 1955 (62y 3m)Study Date: 10/26/2017 1:02:21 PM Gender: MAccession #: [id number] Tech: ALLEN MchughJASVIRLocation: Ref.Physician: Kamilla RAMIREZ(Inch): BSA: Weight(LB): Quality: AdequateOrder Physician: CUAUHTEMOC RAMIREZ Procedures: Carotid Report: Carotid duplex examination of the extracranial arteries was performedusing 2D, color and spectral Doppler. Indications: left carotid bruit. Measurements: Right Carotid Left Carotid Measurement Value Units Measurement ValueUnits RT Prox CCA PSV 81.50 cm/sec LT Prox CCA PSV 120.00cm/sec RT Distal CCA PSV 84.40 cm/sec LT Distal CCA PSV 115.00cm/sec RT Prox ICA PSV 76.20 cm/sec LT Prox ICA PSV 79.20cm/sec RT Prox ICA EDV 32.20 cm/sec LT Prox ICA EDV 27.60cm/sec RT Mid ICA PSV 85.60 cm/sec LT Mid ICA PSV 76.20cm/sec RT Mid ICA EDV 35.80 cm/sec LT Mid ICA EDV 36.90cm/sec RT Distal ICA PSV 75.60 cm/sec LT Distal ICA PSV 59.10cm/sec RT Distal ICA EDV 33.40 cm/sec LT Distal ICA EDV 23.20cm/sec RT ECA PSV 48.70 cm/sec LT ECA PSV 69.80cm/sec RT ICA/CCA 1.01 ratio LT ICA/CCA 0.69ratio RT VERT PSV 86.80 cm/sec LT VERT PSV 31.10cm/sec Findings: Performing Steamfitter Supervisor: Paty Branch, CARTERT. Dariana Bledsoe, CARTERT, RDMS. Rt Common Carotid Artery: The plaque in the right CCA appears to be homogenous and smooth. Rt Internal Carotid Artery: The plaque in the right internal carotid artery appears to be homogenousand smooth. Atherosclerotic changes of the right internal carotid artery withouthemodynamically significant Doppler findings. <50% stenosis. Rt External Carotid Artery: Patent right external carotid artery with evidence of atheroscleroticdisease present. Rt Vertebral Artery: The right vertebral artery is patent with antegrade flow. Lt Common Carotid Artery: The plaque in the left CCA appears to be homogenous and smooth. Lt Internal Carotid Artery: Duplex imaging of the left internal carotid artery is within normal limitswithout evidence of atherosclerotic disease. Lt External Carotid Artery: Patent left external carotid artery with evidence of atheroscleroticdisease present. Lt Vertebral Artery: The left vertebral artery is patent with antegrade flow. Conclusions: Normal, antegrade flow is noted in bilateral vertebral arteries. The right internal carotid artery disease is consistent with a less than50% stenosis. Normal left internal carotid artery, no evidence of significant plaque. History: Not identified. Previous Studies: No previous studies for comparison. Disclaimer: The signing physician has reviewed all images pertaining to this test.These images and this report will be retained in the patient chart by the VascularLaboratory for the legally required time period. This chart constitutes the legal record ofany testing performed. Electronically Signed By: Sen Kinney MD [facility] 2017-10-26 13:49:26 CDT CC: CC: Cuauhtemoc Ramirez MD IM US PROCEDURES Final Resu lt documented in this encounter Visit Diagnoses Diagnosis Vasovagal syncope- Primary Syncope and collapse Essential hypertension Unspecified essential hypertension Bruit of left carotid artery Bruit of left carotid artery documented in this encounter Discontinued Medications Medication Sig Discontinue Reason Start Date End Da te predniSONE (DELTASONE) 10 mg tablet 08/08/2017 10/20/2017 triamcinolone (KENALOG) 0.1 % cream RADHA AA BID 08/09/2017 10/20/2017 hydrocortisone (WESTCORT) 0.2 % cream RADHA EXT AA TID 08/08/2017 10/20/2017 documented as of this encounter Historical Medications * This list may reflect changes made after this encounter. bimatoprost (LUMIGAN) 0.01 % ophthalmic drops INSTILL 1 DROP INTO BOTH EYES ONCE DAILY hydroCHLOROthiazi de (HYDRODIURIL) 12.5 mg tablet daily. 03/24/2017 triamcinolone (KENALOG) 0.1 % cream RADHA AA BID 1 08/09/2017 10/20/2017 predniSONE (DELTASONE) 10 mg tablet 0 08/08/2017 10/20/2017 hydrocortisone (WESTCORT) 0.2 % cream RADHA EXT AA TID 1 08/08/2017 10/20/2017 added in this encounter Care Teams Resident Care Spec Relationship Specialty Start Date End Date Papi Cannon MD [address] [facility] [address] [address] PCP - General 03/24/17 documented as of this encounter
--- OUTSIDE RECORDS SUMMARY | 2024-03-19 01:58 | XMS_ITS | Encounter Summary ---
Author Organization [facility] Facility Care Team Providers Care Pre Wave Assembler Name Role Phone Unavailable Primary Care Provider Unavailabl e Encounter Details Date Type Department Care Team (Latest Contact Info) Description 06/19/2014 9:32 AM CDT - 06/19/2014 11:51 AM CDT [facility] Emeka Kelly MD [address] [facility] [address] [place] [address] Other specified diseases of hair and hair follicles; Glaucoma; Family history of other cardiovascular diseases; Tobacco use disorder Social History Tobacco Use Types Packs/Day Years Used Date Smoking Tobacco: Never Assessed Sex and Gender Information Value Date Recorded Sex Assigned at Not on file 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
--- OUTSIDE RECORDS SUMMARY | 2024-03-19 01:58 | XMS_ITS | Encounter Summary ---
Author Organization [facility] Address [address] [place] [address] Care Team Providers Care Pressroom Supervisor Name Role Phone Unavailable Primary Care Provider Unavailabl e Reason for Visit * Reason Comments Syncope c/o syncopal episode , pt went to wedding today, had lunch with 2 glasses of wine at his hotel and was getting ready to go to relief driller, pt was standing walking with friends when lost of consciouness occured, family was able to prevent fall and lowered pt to the ground, pt reports hectic last 2 weeks with not much rest * Auth/Cert Specialty Diagnoses / Procedures Referred By Contsonya t Referred To Contact Diagnoses Syncope and collapse Referral ID Status Reason Start Date Expiration Date Visits Re quested Visits Authorized [id number] 1 1 Encounter Details Date Type Department Care Team (Late Contact Info) Description 08/22/2015 6:06 PM CDT - 08/23/2015 1:43 PM CDT Emergency [facility] Neuro [address] [place] [address] Arminda Gastelum MD [address] [place] [address] Jm Avery MD [address] [facility] [id number] [place] [address] Starr Dash MD [address] [facility] [place] [address] Emergency Medicine Discharge Disposition: Home or Self Care Social History Tobacco Use Types Packs/Day Years Used Date Smoking Tobacco: Every Day Cigarettes 1 45 Tobacco Cessation:Ready to Q uit: Yes; Counseling Given: Yes Alcohol Use Standard Drinks/Week Comments No 0 (1 standard drink = 0.6 oz pur e alcohol) Sex and Gender Information Value Date Recorded Sex Assigned at Not on file Gender Identity Not on file Sexual Orientation Not on file documented as of this encounter Last Filed Vital Signs Vital Sign Reading Time Taken Comments Blood Pressure 149/94 08/23/2015 8:08 AM CDT Pulse 54 08/23/2015 8:08 AM CDT Temperature 36.6 ??C (97.9 ??F) 08/23/2015 8:08 AM CD T Respiratory Rate 18 08/23/2015 8:08 AM CDT Oxygen Saturation 98% 08/23/2015 8:08 AM CDT Inhaled Oxygen Concentration - - Weight 72.5 kg (159 lb 12.8 oz) 08/23/2015 7:04 AM CDT Height 182.9 cm (6') 08/22/2015 8:48 PM CDT Body Mass Index 21.67 08/22/2015 8:48 PM CDT documented in this encounter Functional Status Functional Status Response Date of Assess ment Is person deaf or have serious hearing difficult y? No 08/22/2015 Is person blind or have serious difficulty seein g? No 08/22/2015 Does person have serious dif ficulty walking/climbing stairs? No 08/22/2015 Does person have difficulty dressing/bathing? No 08/22/2015 Does person have difficulty doing errands alone? No 08/22/2015 Cognitive Status Response Date of Assessm ent Does person have difficulty concentrating/remembering/making decisions? No 08/22/2015 documented as of this encounter Discharge Instructions * Discharge Instr - Activity* Starr Draper RN - 08/23/2015 12:08 PM CDT Unable to return to work until Echocardiogram has been completed and you are cleared by the yeast distiller or primary physician. documented in this encounter Medications at Time of Discharge Medication Sig Dispensed Refills Start Date End Date nicotine (NICODERM CQ) 14 MG/24HR patchIndications:Nicotin e Dependence Apply 1 Patch to skin once daily Reasons: Nicotine Addiction 30 Patch 0 08/23/2015 documented as of this encounter Progress Notes * Starr Draper RN - 08/23/2015 1:39 PM CDT Discharge instructions given, explained and signed by patient. Patient aware of the need for Echo within the next week plans to follow up with yeast distiller through [facility]. IV discontinued without difficulty, remote telemetry removed. Patient's packed belongings and ambulated with patient to private vehicle. Patient discharged in good disposition on room air, no c/o dizziness and ambulates with steady gait. VSS. * Starr Dash MD - 08/23/2015 11:[address] [facility] Starr Dash M.D. Ascom- [phone]- [phone] Reason for hospitalization: near syncope Admit Date: 08/22/2015 6:06 PM Hospital Day: 1 Clinical Course No further near syncope and feels greatly. 100% back to baseline. Wants to go home. Heart rate in 40-80s. New Symptoms Patient denies chest pain and shortness of breath. Data Vitals: 08/22/15 2309 08/23/15 0416 08/23/15 0704 08/23/15 0808 BP: 109/65 128/75 149/94 Pulse: 57 56 54 Temp: 98 ??F 97.8 ??F 97.9 ??F Resp: 16 18 18 Weight: 72.485 kg (159 lb 12.8 oz) SpO2: 96% 98% Intake/Output Summary (Last 24 hours) at 08/23/15 1116 Last data filed at 08/23/15 1045 Gross per 24 hour Intake 2133 ml Output 800 ml Net 1333 ml Exam General appearance: alert, cooperative, no distress Lungs: breath sounds normal and symmetric; no rales or wheezes Heart: regular rhythm Abdomen: soft without mass, non-tender, with normal bowel sounds Extremities: no clubbing, cyanosis or edema Lab Recent Labs Component Name 08/23/15 0519 08/22/15 1824 WBC 8.7 7.7 HGB 12.5 12.6 HCT 36.5 36.5 PLTCOUNT 195 216 Recent Labs Component Name 08/23/15 0519 08/22/15 1824 SODIUM 145 143 POTASSIUM 3.7 3.7 CHLORIDE 114* 108* CO2 26 25 BUN 17 16 CREATININE 0.97 1.52* GLUCOSE 103 92 CALCIUM 8.1* 8.5 Recent Labs Component Name 08/23/15 0018 08/22/15 2117 08/22/15 1824 TROPONIN <0.015 <0.015 <0.015 Assessment and Plan 1. Near syncope - feels 100% better without any symptoms - labs back to normal with IVF - with family history, tobacco use, ED and abnormalities on EKG, needs echo - recommend PCP follow up for appt this week and echo - limit activity until testing completed - cousin is POLYETHYLENE BAG MACHINE OPERATOR at [facility] and will arrange follow up with Dr. Oneal MEDICATIONS FOR CURRENT ENCOUNTER: ?? SCHEDULED MEDICATIONS: ?? enoxaparin (LOVENOX) injection 40 mg, Subcutaneous, QDAY AT 0600 ?? [COMPLETED] 0.9% NaCl IV Bolus, Intravenous, Once ?? CONTINUOUS MEDICATIONS: ?? 0.9% NaCl infusion, Intravenous, Continuous ?? 0.9% NaCl infusion, Intravenous, CONTINUOUS PRN PRN MEDICATIONS: 0.9% NaCl infusion, Intravenous, CONTINUOUS PRN acetaminophen (TYLENOL) tablet 650 mg, Oral, q4h PRN HYDROcodone-acetaminophen (NORCO) 5-325 MG tablet 1 Tab, Oral, q4h PRN ondansetron (ZOFRAN) injection 4 mg, Intravenous, q4h PRN * Shalini Grant RN - 08/23/2015 5:31 AM CDT Admitted from the ED, accompanied by ED staff and family. Denies having pain. Ushered to bed; Oriented to unit and room setup. Needs helped. Encouraged to verbalize needs. * Shalini Grant RN - 08/23/2015 4:43 AM CDT Problem: Fall Risk Goal: Patient will remain free of falls Outcome: Ongoing Olman had no falls; Agrees to call for help when gets unsteady. Problem: Tobacco Use Goal: Inpatient tobacco-use cessation counseling participation Outcome: Ongoing Olman verbalizes desire to quit smoking. documented in this encounter H&P Notes * Jm Avery MD - 08/22/2015 9:21 PM CDT History and Physical Date of Admission: 08/22/2015 Patient's Primary Care Physician: No primary care provider on file. Name: Olman Beth Age: 60 y.o. Race: Sex: male Chief Complaint: Syncope History of Present Illness 60yo with hx of tobacco abuse and glaucoma presenting with syncope. Pt reports that he had episode of syncope this afternoon. He had gone to a wedding and was waiting to go the relief driller. He was standing and had sudden onset of syncope. He was caught by friends a did not fall. Had LOC for a few seconds. Then had 2 more episodes within a minute. No confusion afterwords. No seizure like episodes. He thinks he had some preceding dizziness prior to passing out. He did have 2 glasses of wine and a beer earlier in the day. Normally, only drinks on the weekends. No cp, sob or palpitations. No fever or chills. No change in eating recently. Reportedly has been very busy at work recently and per his has been over doing it. Currently, he is feeling well and back to baseline. No other co. Past Medical History Diagnosis Date ??? Glaucoma No past surgical history No significant family history Social History Occupational History ??? Not on file. Social History Main Topics ??? Smoking status: Current Every Day Smoker -- 1.00 packs/day for 45 years Types: Cigarettes ??? Smokeless tobacco: Not on file ??? Alcohol Use: No ??? Drug Use: No ??? Sexual Activity: Not on file No prescriptions prior to admission MEDICATIONS FOR CURRENT ENCOUNTER: ?? SCHEDULED MEDICATIONS: ?? [COMPLETED] 0.9% NaCl IV Bolus, Intravenous, Once ?? CONTINUOUS MEDICATIONS: ?? 0.9% NaCl infusion, Intravenous, CONTINUOUS PRN ?? PRN MEDICATIONS: ?? 0.9% NaCl infusion, Intravenous, CONTINUOUS PRN ?? acetaminophen (TYLENOL) tablet 650 mg, Oral, q4h PRN ?? HYDROcodone-acetaminophen (NORCO) 5-325 MG tablet 1 Tab, Oral, q4h PRN ?? ondansetron (ZOFRAN) injection 4 mg, Intravenous, q4h PRN ?? No Known Allergies Review of Systems A Comprehensive 14 point review of systems was reviewed with the patient. Pertinent positives and negatives are as indicated in the history of present illness. All other systems are negative. Review of Systems - General ROS: negative for - chills, fatigue or fever Psychological ROS: negative for - anxiety or depression Ophthalmic ROS: negative for - blurry vision ENT ROS: negative for - epistaxis, sore throat or vertigo Allergy and Immunology ROS: negative for - hives, nasal congestion or seasonal allergies Hematological and Lymphatic ROS: negative for - bleeding problems or weight loss Endocrine ROS: negative for - polydipsia/polyuria or unexpected weight changes Breast ROS: negative for breast lumps Respiratory ROS: negative for - cough or shortness of breath Cardiovascular ROS: negative for - chest pain or palpitations Gastrointestinal ROS: negative for - abdominal pain or nausea/vomiting Genito-Urinary ROS: negative for - dysuria, hematuria or urinary frequency/urgency Musculoskeletal ROS: negative for - joint stiffness or muscle pain Neurological ROS: see HPI Dermatological ROS: negative for - rash Exam Vitals: 08/22/15200008/22/15 2048 08/22/15 2057 08/22/15 2100 BP: 153/87 126/84 145/92 Pulse: 61 62 61 59 Temp: 98 ??F Resp: 16 16 Weight: 73.301 kg (161 lb 9.6 oz) SpO2: 99% 98% General appearance: alert, cooperative, no distress Head: atraumatic, normocephalic Eyes: anicteric. Clear. Throat: mmm. Clear. Lymphnodes: no cercival or supraclavicular lymphadenopathy noted. Neck: supple. No cervical lymphadenopathy noted. Lungs: breath sounds normal and symmetric; no rales or wheezes Heart: regular rhythm, normal S1 and S2, without murmurs, gallops or rubs Abdomen: soft without mass, non-tender, with normal bowel sounds Extremities: no clubbing, cyanosis or edema Skin: no rashes noted. Iv sites clear MS: none of the joints look inflammed. Full range of motion Neuro: oriented x3. Cranial nerves 2-12 grossly intact. No focal deficits noted Data Recent Labs Component Name 08/22/15 1824 WBC 7.7 HGB 12.6 HCT 36.5 PLTCOUNT 216 Recent Labs Component Name 08/22/15 1824 SODIUM 143 POTASSIUM 3.7 CHLORIDE 108* CO2 25 BUN 16 CREATININE 1.52* GLUCOSE 92 CALCIUM 8.5 ALBUMIN 3.5 ALKPHOS 56 ALT 19 AST 16 TBIL 0.4 TPROT 6.6 EGFR 47* EKG: NS with prior septal infarct, twi V1, no st changes Imaging: CT head IMPRESSION No acute intracranial findings.?? Emergency noncontrast brain CT. Please see above. ?? Sinus disease as noted above. Pa/lat IMPRESSION No acute disease in the chest. Assessment -Syncope, suspect vasovagal. May be related to etoh use. Consider arrythmia -Tobacco abuse -Glaucoma -Likely underlying CAD -ARF, likely from prerenal azotemi Plan -telemetry -ro ACS -IVF -tsh wnl -monitor bmp and uop -check orthostatics -encourage tobacco and etoh cessation -check echo (can probably be done as an outpt if unable to obtain tomorrow on Monday) -consider event monitor on dc Prophylaxis: lovenox for dvt Discussed with pt and family. C.C. No primary care provider on file. documented in this encounter ED Notes * Arminda Gastelum MD - 08/22/2015 7:11 PM CDT Emergency Physician Attestation of MLP (Midlevel provider) Nurse Practitioner/Physician's Shot Packer I, Dr. Abigail Gastelum, personally evaluated and examined Olman Beth in conjunction with the MLP and agree with the management and disposition of Olman Beth. 08/22/2015 19:11 For this patient encounter, I reviewed the DIE EQUIPMENT OPERATOR or PA documentation, procedures (if done), treatment plan, and medical decision making; and I had [id number] time with this patient. I have conducted an independent evaluation of this patient including a focused history and a physical exam - which are in concordance with the DIE EQUIPMENT OPERATOR/PA documentation except as otherwise noted. HPI: Gilbert Beth, a 60 y.o. 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 Pt had 2 glasses of wine prior to wedding and he was smoking at time of onset. Pt was lowered to the ground by family, no trauma. Episode was witnessed by pt's daughter, an ER nurse. They are not able to provide an explanation. 8:37 PM-Pt rechecked. States he feels fine and has no complaints at this time. He agrees with thedetails given by REEMA and feels asymptomatic now. Vital Signs: BP 153/84 mmHg Pulse 84 Temp(Src) 98 ??F Resp 16 Ht 1.829 m (6') Wt 74.844 kg (165 lb) BMI 22.37 kg/m2 SpO2 100% Clinical Impression: Encounter Diagnosis Name Primary? Syncope and collapse ED Medications Ordered/Administered: Medications 0.9% NaCl infusion (not administered) 0.9% NaCl IV Bolus (1,000 mL Intravenous $ Given 08/22/151945) New Medications: New Prescriptions No medications on file Patient advised to follow-up with: No follow-up provider specified. Disposition: Admitted I have reviewed the information recorded by the scribe and agree with its accuracy and contents-- Dr. Gastelum 08/22/2015 7:11 PM Transcribed by Estella Molina--acting scribe on behalf of Dr. Gastelum 08/22/2015 7:11 PM * Saloni Das, HOME APPLIANCE TECH-POLICY OFFICER - 08/22/2015 6:27 PM CDT Provider contact with the patient: 08/22/2015 18:27 Olman Beth [id number] [facility] EMERGENCY DEPARTMENT History Chief Complaint Patient presents with ??? Syncope c/o syncopal episode, pt went to wedding today, had lunch with 2 glasses of wine at his hotel and was getting ready to go to relief driller, pt was standing walking with friends when lost of consciouness occured, family was able to prevent fall and lowered pt to the ground, pt reports hectic last 2 weeks with not much rest HPI Comments: Olman Beth is a 60 y.o. male presenting to the ED with a chief complaint of threenear syncopal episodes just prior to arrival. The patient reports attending a wedding today. He wasstanding outside smoking a cigarette and started to feel foggy. His daughter states that he began to wobble and she was able to prevent a fall by lowering the patient to the ground. The patient stoodup and was fine but then had two similar episodes immediately following. She notes an abnormal gaitjust before the episodes. The patient was able to ambulate following the episodes. The patient denies any injury. He reports drinking 2 glasses of wine prior to the event. Denies chest pain or any other symptoms at the moment. The patient notes an extensive family cardiac history. Past medical history includes glaucoma. The patient is a smoker (1ppd) and drinks alcohol. Syncope The history is provided by the patient. The current episode started 1 to 2 hours ago. The problem occurs intermittent. The patient had a Near-Syncope episode.The episode was witnessed. There was no loss of consciousness. The patient was standing at the time of event.Associated symptoms include clumsiness and dizziness (near syncope). IVAN Syncope Rule Past Medical History Diagnosis Date ??? Glaucoma No past surgical history on file. No family history on file. History Social History ??? Marital Status: Spouse Name: N/A Number of Children: N/A ??? Years of Education: N/A Occupational History ??? Not on file. Social History Main Topics ??? Smoking status: Current Every Day Smoker -- 1.00 packs/day for 45 years Types: Cigarettes ??? Smokeless tobacco: Not on file ??? Alcohol Use: No ??? Drug Use: No ??? Sexual Activity: Not on file Other Topics Concern ??? Not on file Social History Narrative ??? No narrative on file Review of Systems Review of Systems HENT: Negative. Eyes: Negative. Respiratory: Negative. Cardiovascular: Positive for syncope. Gastrointestinal: Negative. Genitourinary: Negative. Musculoskeletal: Negative. Skin: Negative. Neurological: Positive for dizziness (near syncope). Endo/Heme/Allergies: Negative. Psychiatric/Behavioral: Negative. All other systems reviewed and are negative. Physical Exam BP 153/84 mmHg Pulse 84 Temp(Src) 98 ??F Resp 16 Ht 1.829 m (6') Wt 74.844 kg (165 lb) BMI 22.37 kg/m2 SpO2 100% Physical Exam Constitutional: He is oriented to person, place, and time. Vital signs are normal. He appears well-developed and well-nourished. HENT: Head: Normocephalic and atraumatic. Right Ear: Hearing and external ear normal. Left Ear: Hearing and external ear normal. Nose: Nose normal. Mouth/Throat: Uvula is midline and oropharynx is clear and moist. Eyes: Conjunctivae, EOM and lids are normal. Pupils are equal, round, and reactive to light. Neck: Trachea normal and phonation normal. Cardiovascular: Regular rhythm, S1 normal, S2 normal, normal heart sounds and normal pulses. Pulmonary/Chest: Effort normal and breath sounds normal. Abdominal: Soft. Normal appearance and bowel sounds are normal. There is no tenderness. Musculoskeletal: Normal range of motion. Neurological: He is alert and oriented to person, place, and time. GCS eye subscore is 4. GCS verbal subscore is 5. GCS motor subscore is 6. Mental status: Awake, alert, oriented x 4. Higher Cerebral Function: speech - Non-aphasic (normal) Cranial Nerves: II - Visual grant intact III, IV, - Extraocular movement intact. Pupils equal, round, & reactive to light V/VII - Facial sensation intact and symmetric with normal strength VIII, IX, X - Hearing not tested , normal swallow and gag XI - Normal trapezius strength via shoulder shrug and head rotation XII - No tongue deviation on protrusion Motor Function: Right upper extremity 5 - Normal Strength Left upper extremity 5 - Normal Strength Right lower extremity 5 - Normal Strength Left lower extremity 5 - Normal Strength Sensory Function: Right upper extremity Normal sensation Left upper extremity Normal sensation Right lower extremity Normal sensation Left lower extremity Normal sensation Coordination: Normal finger to nose Gait: stance, stride and arm swing appear normal Skin: Skin is warm, dry and intact. Psychiatric: He has a normal mood and affect. His speech is normal and behavior is normal. Cognition and memory are normal. Nursing note and vitals reviewed. Medications Current Outpatient Prescriptions Medication Sig Dispense Refill ??? nicotine (NICODERM CQ) 14 MG/24HR patch Apply 1 Patch to skin once daily Reasons: Nicotine Addiction 30 Patch 0 Procedures Procedures ECG Interpretation Date/Time: 08/22/2015 7:17 PM Interpreted by ED provider Comparison: not compared with previous ECG Rhythm: sinus rhythm Ectopy: none Rate: normal BPM: 66 QRS axis: normal Conduction: conduction normal Q waves: V2, V5 and V6 Clinical impression: abnormal ECG ECG Rhythm Interpretation Lab Interpretation Oxygen Saturation Interpretation The oxygen saturation level is: 100%. The patient was on Room Air for the saturation measurement. Measurement frequency: Spot Check. Intervention(s) used: None. Hospital Encounter on 08/22/15 CBC W AUTO DIFFERENTIAL Result Value Ref Range WBC 7.7 4.4-10.7 x10E9/L WBC Corrected x10E9/L RBC 3.85 3.80-5.40 x10E12/L Hgb 12.6 12.0-17.6 gm/dL HCT 36.5 35.2-51.7 % MCV 94.8 80.7-98.3 fl MCH 32.7 26.7-34.0 pg MCHC 34.5 30.8-35.9 gm/dL Plt Ct 216 153-416 x10E9/L RDW-CV 12.6 12.1-14.9 % MPV 9.9 9.4-12.9 fl Neutro 45.0 44.0-73.0 % Lymph 41.2 20.0-43.0 % Vance 7.3 5.0-13.0 % Eos 5.2 0.0-6.0 % Baso 1.2 0.0-2.0 % Immature Grans 0.1 0-1 % Neutro Abs 3.46 2.01-7.14 x10E9/L Lymph Abs 3.17 1.07-3.94 x10E9/L Vance Abs 0.56 0.26-1.07 x10E9/L Eosin Abs 0.40 0-0.47 x10E9/L Baso Abs 0.09 (H) 0-0.08 x10E9/L Immature Grans (Abs) 0.01 0.00-0.06 x10E9/L NRBC Auto 0 /100 WBC COMPREHENSIVE METABOLIC PANEL Result Value Ref Range Glucose 92 74-106 mg/dL Sodium 143 136-145 mmol/L Potassium 3.7 3.5-5.1 mmol/L Chloride 108 (H) 98-107 mmol/L CO2 25 22-31 mmol/L Calcium 8.5 8.5-10.1 mg/dL Anion Gap 10 5-20 mmol/L BUN 16 7-21 mg/dL Creatinine 1.52 (H) 0.50-1.30 mg/dL Alk Phos 56 38-126 U/L ALT/SGPT 19 12-78 U/L AST/SGOT 16 5-40 U/L Protein Total 6.6 6.4-8.2 gm/dL Albumin 3.5 3.4-5.0 gm/dL Bili Total 0.4 0.2-1.0 mg/dL eGFR MDRD 47 (L) >60 mL/min/1.73m2 eGFR MDRD AFR AMR 57 (L) >60 mL/min/1.73m2 TROPONIN I Result Value Ref Range Troponin I <0.015 0.000-0.049 ng/mL TROPONIN I Result Value Ref Range Troponin I <0.015 0.000-0.049 ng/mL TROPONIN I Result Value Ref Range Troponin I <0.015 0.000-0.049 ng/mL NT-PRO BNP Result Value Ref Range NT-proBNP pg/mL 87.0 <300.0 pg/mL D-DIMER Result Value Ref Range D-Dimer mg/L FEU 0.26 0.17-0.5 mg/L FEU URINALYSIS ROUTINE W/REFLEX TO CULTURE Result Value Ref Range Color UA Yellow Straw, Yellow, Dark Yellow Clarity UA Clear Specific [place] UA 1.010 1.005-1.030 pH UA 5.5 5.0-8.0 pH Protein UA Negative Negative Blood UA Negative Negative Leukocyte UA Negative Negative Nitrite UA Negative Negative Glucose UA Negative Negative Ketone UA Negative Negative Bili UA Negative Negative Urobilinogen UA 0.2 0.1-1.0 EU/dL Reflex Status Culture not indicated TSH Result Value Ref Range TSH 2.03 0.358-3.740 uIU/mL BASIC METABOLIC PANEL (CALCIUM TOTAL) Result Value Ref Range Glucose 103 74-106 mg/dL Sodium 145 136-145 mmol/L Potassium 3.7 3.5-5.1 mmol/L Chloride 114 (H) 98-107 mmol/L CO2 26 22-31 mmol/L Calcium 8.1 (L) 8.5-10.1 mg/dL Anion Gap 5 5-20 mmol/L BUN 17 7-21 mg/dL Creatinine 0.97 0.50-1.30 mg/dL eGFR MDRD >60 >60 mL/min/1.73m2 eGFR MDRD AFR AMR >60 >60 mL/min/1.73m2 CBC W AUTO DIFFERENTIAL Result Value Ref Range WBC 8.7 4.4-10.7 x10E9/L WBC Corrected x10E9/L RBC 3.87 3.80-5.40 x10E12/L Hgb 12.5 12.0-17.6 gm/dL HCT 36.5 35.2-51.7 % MCV 94.3 80.7-98.3 fl MCH 32.3 26.7-34.0 pg MCHC 34.2 30.8-35.9 gm/dL Plt Ct 195 153-416 x10E9/L RDW-CV 12.7 12.1-14.9 % MPV 10.2 9.4-12.9 fl Neutro 58.5 44.0-73.0 % Lymph 29.5 20.0-43.0 % Vance 5.7 5.0-13.0 % Eos 5.3 0.0-6.0 % Baso 0.9 0.0-2.0 % Immature Grans 0.1 0-1 % Neutro Abs 5.09 2.01-7.14 x10E9/L Lymph Abs 2.57 1.07-3.94 x10E9/L Vance Abs 0.50 0.26-1.07 x10E9/L Eosin Abs 0.46 0-0.47 x10E9/L Baso Abs 0.08 0-0.08 x10E9/L Immature Grans (Abs) 0.01 0.00-0.06 x10E9/L NRBC Auto 0 /[address] HEAD NON CONTRAST Final Result No acute intracranial findings. Emergency noncontrast brain CT. Please see above. Sinus disease as noted above. XR CHEST PA AND LATERAL Final Result No acute disease in the chest. Progress Notes Initial Assessment/Plan: Olman Beth is a 60 y.o. male patient c/o near syncopal episodes just prior to arrival. The pt reports attending a wedding today. He was standing outside smoking a cigarette and started to lose consciousness. His daughter states that he began to fall over and she was able to prevent a fall by lowering the patient to the ground.The pt stood up and was fine but then had two similar episodes following. She notes an abnormal gait just before the episodes. Presents asymptomatic at the moment. Cardiac Fhx. Plan to check CXR, CBC, CMP, troponin, Pro BNP, D-Dimer, UA, and EKG; will consult neurology. Pt most likely to be admitted overnight for observation. 7:57 PM: I discussed with Dr. Jm Avery (hospitalist) about all pertinent aspects of the caseincluding testing done, medications given, the patient's current condition, my clinical impression and the need for admission for further evaluation and treatment. Agrees to accept the patient at this time. We have agreed on an initial plan. Care is transferred to the admitting physician at this time. The patient/family understand and agree with the plan. ED Course Medical Decision Making I have reviewed the: Previous Chart, Nursing Notes and Vitals. I have interpreted the following results: Labs, 12 Lead EKG, X-Ray, CT Scans and Oxygen Saturation. I have discussed the case with Hospitalist. Orders Placed This Encounter ??? XR CHEST PA AND LATERAL ??? CT HEAD NON CONTRAST ??? CBC W AUTO DIFFERENTIAL ??? COMPREHENSIVE METABOLIC PANEL ??? TROPONIN I ??? TROPONIN I ??? NT-PRO BNP ??? D-DIMER ??? URINALYSIS ROUTINE W/REFLEX TO CULTURE ??? TSH ??? BASIC METABOLIC PANEL (CALCIUM TOTAL) ??? CBC W AUTO DIFFERENTIAL ??? OXYGEN ??? EKG 12-LEAD ??? ECHOCARDIOGRAM 2D WITH DOPPLER ??? 0.9% NaCl infusion ??? 0.9% NaCl IV Bolus ??? acetaminophen (TYLENOL) tablet 650 mg ??? HYDROcodone-acetaminophen (NORCO) 5-325 MG tablet 1 Tab ??? ondansetron (ZOFRAN) injection 4 mg ??? 0.9% NaCl infusion ??? enoxaparin (LOVENOX) injection 40 mg ??? nicotine (NICODERM CQ) 14 MG/24HR patch Clinical Impression Final diagnoses: Syncope and collapse Disposition: Admit to cardiac tele to Dr Avery I have reviewed the information recorded by the scribe and agree with its accuracy and contents--SANDRA Das 08/22/2015 Transcribed by Joey Carroll--acting scribe on behalf of Saloni Das 08/23/2015 * Lauren La RN - 08/22/2015 6:06 PM CDT Bed: 20 Expected date: 08/22/15 Expected time: 5:51 PM Means of arrival: Ambulance Comments: Jovanni 60y m syncopal episode now A&Ox3. No PMH. 100/60 80SR, 96% RA 92BG documented in this encounter Plan of Treatment Pending Results Name Type Priority Associated Diagnoses Date /Time ECHOCARDIOGRAM 2D WITH DOPPLER ECHO Routine Syncope and collapse 08/22/2015 10:32 PM CDT documented as of this encounter Procedures Procedure Name Priority Date/Time Associated Diagnosis Comments CARDIAC EKG ORDER 09/14/2015 3: 46 PM CDT CARDIAC RHYTHM STRIP ORDER 08/26/2015 9:55 PM CDT CARDIAC EKG ORDER 08/26/2015 9:3 2 PM CDT CBC W AUTO DIFFERENTIAL AM Draw 08/23/2015 5:19 AM CDT BASIC METABOLIC PANEL (CALCIUM TOTAL) AM Draw 08/23/2015 5:19 AM CDT TROPONIN I Timed 08/23/2015 12:18 AM CDT URINALYSIS REFLEX MICROSCOPIC REFLEX CULTURE STAT 08/22/2015 9:59 PM CDT TROPONIN I Timed 08/22/2015 9:[address] HEAD WO CONTRAST STAT 08/22/2015 8 :01 PM CDT Syncope and collapse EKG 12-LEAD STAT 08/22/2015 7:17 PM CDT Syncope and collapse D-DIMER STAT 08/22/2015 7:13 PM CDT XR CHEST 2VW STAT 08/22/2015 6:39 PM CDT Syncope and collapse NT-PRO BNP Add on 08/22/2015 6:24 PM CDT TROPONIN I STAT 08/22/2015 6:24 PM CDT CBC W AUTO DIFFERENTIAL STAT 08/22/2015 6:24 PM CDT COMPREHENSIVE METABOLIC PANEL STAT 08/22/2015 6:24 PM CDT TSH Add on 08/22/2015 6:24 PM CDT documented in this encounter Results * CARDIAC EKG ORDER (09/14/2015 3:46 PM CDT) Narrative 09/14/2015 3:46 PM CDT Ordered by an unspecified provider. Scanned Document CARDIAC SERVICES ORD ERABLES * CARDIAC RHYTHM STRIP ORDER (08/26/2015 9:55 PM CDT) Narrative 08/26/2015 9:55 PM CDT Ordered by an unspecified provider. Scanned Document CARDIAC SERVICES ORD ERABLES * CARDIAC EKG ORDER (08/26/2015 9:32 PM CDT) Narrative 08/26/2015 9:32 PM CDT Ordered by an unspecified provider. Scanned Document CARDIAC SERVICES ORD ERABLES * CBC W AUTO DIFFERENTIAL (08/23/2015 5:19 AM CDT) [facility] WBC 8.7 4.4 - 10.7 x10E9/L 08/23/2015 6:00 AM CDT [facility] WBC Corrected x10E9/L 08/23/2015 6:00 AM CDT [facility] RBC 3.87 3.80 - 5.40 x10E12/L 08/23/2015 6:00 AM CDT [facility] Hemoglobin 12.5 12.0 - 17.6 gm/dL 08/23/2015 6:00 AM [facility] Hematocrit 36.5 35.2 - 51.7 % 08/23/2015 6:00 AM [facility] MCV 94.3 80.7 - 98.3 fl 08/23/2015 6:00 AM [facility] MCH 32.3 26.7 - 34.0 pg 08/23/2015 6:00 AM [facility] MCHC 34.2 30.8 - 35.9 gm/dL 08/23/2015 6:00 AM [facility] Platelet Count 195 153 - 416 x10E9/L 08/23/2015 6:00 AM [facility] RDW-CV 12.7 12.1 - 14.9 % 08/23/2015 6:00 AM [facility] MPV 10.2 9.4 - 12.9 fl 08/23/2015 6:00 AM [facility] Neutrophils % 58.5 44.0 - 73.0 % 08/23/2015 6:00 AM [facility] Lymphocytes % 29.5 20.0 - 43.0 % 08/23/2015 6:00 AM [facility] Monocytes % 5.7 5.0 - 13.0 % 08/23/2015 6:00 AM [facility] Eosinophils % 5.3 0.0 - 6.0 % 08/23/2015 6:00 AM [facility] Basophils % 0.9 0.0 - 2.0 % 08/23/2015 6:00 AM [facility] Immature Granulocytes 0.1 0 - 1 % 08/23/2015 6:00 AM [facility] Neutrophil Absolute 5.09 2.01 - 7.14 x10E9/L 08/23/2015 6:00 AM [facility] Lymphocytes Absolute 2.57 1.07 - 3.94 x10E9/L 08/23/2015 6:00 AM [facility] Monocytes Absolute 0.50 0.26 - 1.07 x10E9/L 08/23/2015 6:00 AM [facility] Eosinophils Absolute 0.46 0 - 0.47 x10E9/L 08/23/2015 6:00 AM [facility] Basophils Absolute 0.08 0 - 0.08 x10E9/L 08/23/2015 6:00 AM [facility] Immature Granulocytes Absolute 0.01 0.00 - 0.06 x10E9/L 08/23/2015 6:00 AM [facility] nRBC Auto 0 /100 WBC 08/23/2015 6:00 AM [facility] Blood BLOOD SPECIMEN / Unknown Lab Venipuncture / Unknown 08/23/2015 5:19 AM CDT 08/23/2015 5:47 AM CDT Saloni Das HOME APPLIANCE TECH-POLICY OFFICER LAB - HEMATOLOGY O RDERABLES [facility] [address] [place] [address] * (ABNORMAL) BASIC METABOLIC PANEL (CALCIUM TOTAL) (08/23/2015 5:19 AM CDT) Glucose 103 74 - 106 mg/dL 08/23/2015 6:05 AM [facility] Sodium 145 136 - 145 mmol/L 08/23/2015 6:05 AM [facility] Potassium 3.7 3.5 - 5.1 mmol/L 08/23/2015 6:05 AM [facility] Chloride 114(H) 98 - 107 mmol/L 08/23/2015 6:05 AM [facility] CO2 26 22 - 31 mmol/L 08/23/2015 6:05 AM [facility] Calcium 8.1(L) 8.5 - 10.1 mg/dL 08/23/2015 6:05 AM [facility] Anion Gap 5 5 - 20 mmol/L 08/23/2015 6:05 AM [facility] BUN 17 7 - 21 mg/dL 08/23/2015 6:05 AM [facility] Creatinine 0.97 0.50 - 1.30 mg/dL 08/23/2015 6:05 AM [facility] eGFR by MDRD >60 >60 mL/min/1.7 3m2 08/23/2015 6:05 AM [facility] eGFR by MDRD >60 >60 mL/min/1.7 3m2 08/23/2015 6:05 AM CDT [facility] Blood BLOOD SPECIMEN / Unknown Lab Venipuncture / Unknown 08/23/2015 5:19 AM CDT 08/23/2015 5:47 AM CDT Saloni Das APRN-POLICY OFFICER LAB - CHEMISTRY OR DERABLES Performing Organization Address [facility] Co de Phone Number [facility] [address] [place] [phone] * TROPONIN I (08/23/2015 12:18 AM CDT) Troponin I <0.015 0.000 - 0.049 ng/mL 08/23/2015 12:49 AM CDT [facility] Blood BLOOD SPECIMEN / Unknown Lab Venipuncture / Unknown 08/23/2015 12:18 AM CDT 08/23/2015 12:30 AM CDT Narrative [facility] - 08/23/2015 12:49 AM CDT Note: Diagnosis of myocardial infarction requires symptoms of ischemia or EKG changes of ischemia and Troponin I >99th of normal (0.05 ng/mL). Troponin should be drawn on initial assessment and 3-6 hours later as clinically indicated. Any condition resulting in myocardial cell damage can increase cardiac troponin levels. In addition to myocardial infarction, these include but are not limited to congestive heart failure (CHF), arrhythmia, myocarditis, and non-cardiac related causes such as pulmonary embolism, renal failure and sepsis. Arminda Gastelum MD LAB - CHEMISTRY ORDERABLES Performing Organization Address [facility] Co de Phone Number [facility] [address] [place] [address] * URINALYSIS ROUTINE W/REFLEX TO CULTURE (08/22/2015 9:59 PM CDT) Color UA Yellow Straw, Yellow, Dark Yellow 08/22/2015 10:07 PM CDT [facility] Clarity UA Clear 08/22/2015 10:07 PM CDT [facility] Specific [place] UA 1.010 1.005 - 1.030 08/22/2015 10:07 PM CDT [facility] pH UA 5.5 5.0 - 8.0 pH 08/22/2015 10:07 PM CDT [facility] Protein UA Negative Negative 08/22/2015 10:07 PM CDT [facility] Blood UA Negative Negative 08/22/2015 10:07 PM CDT [facility] Leukocyte UA Negative Negative 08/22/2015 10:07 PM CDT [facility] Nitrite UA Negative Negative 08/22/2015 10:07 PM CDT [facility] Glucose UA Negative Negative 08/22/2015 10:07 PM CDT [facility] Ketone UA Negative Negative 08/22/2015 10:07 PM CDT [facility] Bilirubin UA Negative Negative 08/22/2015 10:07 PM CDT [facility] Urobilinogen UA 0.2 0.1 - 1.0 EU/dL 08/22/2015 10:07 PM T [facility] Reflex Status Culture not indicated 08/22/2015 10:07 PM CDT [facility] Urine URINE SPECIMEN OBTAINED BY CLEAN CATCH PROCEDURE / Unknown Collection / Unknown 08/22/2015 9:59 PM CDT 08/22/2015 10:02 PM CDT Saloni Das HOME APPLIANCE TECH-POLICY OFFICER LAB - URINALYSIS O RDERABLES [facility] [address] [place] [address] * TROPONIN I (08/22/2015 9:17 PM CDT) Troponin I <0.015 0.000 - 0.049 ng/mL 08/22/2015 9:49 PM T [facility] Blood BLOOD SPECIMEN / Unknown Lab Venipuncture / Unknown 08/22/2015 9:17 PM CDT 08/22/2015 9:29 PM CDT Narrative [facility] - 08/22/2015 9:49 PM CDT Note: Diagnosis of myocardial infarction requires symptoms of ischemia or EKG changes of ischemia and Troponin I >99th of normal (0.05 ng/mL). Troponin should be drawn on initial assessment and 3-6 hours later as clinically indicated. Any condition resulting in myocardial cell damage can increase cardiac troponin levels. In addition to myocardial infarction, these include but are not limited to congestive heart failure (CHF), arrhythmia, myocarditis, and non-cardiac related causes such as pulmonary embolism, renal failure and sepsis. Arminda Gastelum MD LAB - CHEMISTRY ORDERABLES [facility] [address] [address] * CT HEAD NON CONTRAST (08/22/2015 8:01 PM CDT) Anatomical Region Laterality Modality Head Computed Tomogra phy 08/22/2015 8:27 PM CDT Impressions 08/22/2015 8:28 PM CDT No acute intracranial findings. ??Emergency noncontrast brain CT. Please see above. Sinus disease as noted above. Narrative 08/22/2015 8:28 PM CDT EXAMINATION: CT BRAIN WITHOUT CONTRAST. Indication: Syncope and collapse. ??Syncope multiple times today. Technique: Noncontrast axial images of the brain were performed at the time of the patient's presentation. ??Additional coronal reformatted images were performed with the CT scanner software. ??This CT report was transcribed with a computerized speech recognition system. ??In an effort to expedite patient care, it has not been adjusted for typographical, grammatical or syntax problems by a trained medical policy specialist. Findings: ? There is no intracranial mass-effect or midline shift identified. The ventricular system is normal in size. ??Soft tissue thickening is noted in some of the ethmoid sinus air cells and in the right frontal sinus and left maxillary sinus... No focal intraparenchymal hemorrhage can be identified. ??If the patient's symptoms persist or worsen, a followup brain CT or MRI is recommended for further evaluation. Procedure Note Luis F Odom MD - 08/22/2015 EXAMINATION: CT BRAIN WITHOUT CONTRAST. Indication: Syncope and collapse. Syncope multiple times today. Technique: Noncontrast axial images of the brain were performed at the time of the patient's presentation. Additional coronal reformatted images were performed with the CT scanner software. This CT report was transcribed with a computerized speech recognition system. In an effort to expedite patient care, it has not been adjusted for typographical, grammatical or syntax problems by a trained medical policy specialist. Findings: There is no intracranial mass-effect or midline shift identified. The ventricular system is normal in size. Soft tissue thickening is noted in some of the ethmoid sinus air cells and in the right frontal sinus and left maxillary sinus... No focal intraparenchymal hemorrhage can be identified. If the patient's symptoms persist or worsen, a followup brain CT or MRI is recommended for further evaluation. IMPRESSION No acute intracranial findings. Emergency noncontrast brain CT. Please see above. Sinus disease as noted above. Saloni Das [facility] CT ORDERABLES * EKG 12-LEAD (08/22/2015 7:17 PM CDT) Ventricular Rate 66 BPM [facility] Atrial Rate 66 BPM [facility] P-R Interval 152 ms [facility] QRS Duration ms 82 ms [facility] Q-T Interval ms 422 ms [facility] QTC Calculation (Bezet) 442 ms [facility] MUSE Calculated P [place] 68 degrees [facility] MUSE Calculated R [place] 20 degrees [facility] MUSE Calculated T [place] 35 degrees [facility] MUSE Interpretation EKG Normal sinus rhythm Septal infarct , age undetermined nonspecific ST and T-wave segment changes No previous ECGs available Confirmed by Harley Gutiérrez ([id number]) on 08/23/2015 3:02:06 PM [facility] 08/22/2015 7:17 PM CDT 08/23/2015 3:02 PM CDT Saloni Das [facility] ECG ORDERABLES [facility] * D-DIMER (08/22/2015 7:13 PM CDT) D-Dimer 0.26 0.17 - 0.5 mg/L FEU 08/22/2015 7:43 PM CDT [facility] Blood BLOOD SPECIMEN / Unknown Venipuncture / Unknown 08/22/2015 7:13 PM CDT 08/22/2015 7:22 PM CDT Narrative [facility] - 08/22/2015 7:43 PM CDT The [employer] D-Dimer assay is intended for use as an aid in diagnosis of venous thromboembolism [(VTE): deep vein thrombosis (DVT), pulmonary embolism (PE), and disseminated intravascular coagulation (DIC)], and has received U.S. Food and Drug Administration (FDA) approval to exclude VTE in patients with low or moderate pretest probability of PE or DVT (per Wells' rules). At a clinical cut-off value 0.50 mg/L FEU, the Negative Predictive Value of this assay is 99.8% for excluding PE and 100% for excluding DVT. A very low percentage of patients with VTE may yield D-Dimer results below the cut-off value. An elevated D-Dimer result has low specificity (40.4% for PE, 35.5% for DVT) and is a poor predictor of VTE. An elevated D-Dimer result may indicate DIC in the appropriate clinical setting. Results of this test should always be interpreted in conjunction with the patient's medical history, clinical presentation, and other findings. Saloni Das HOME APPLIANCE TECH-POLICY OFFICER LAB - COAGULATION ORDERABLES [facility] [address] [place] [address] * XR CHEST PA AND LATERAL (08/22/2015 6:39 PM CDT) Anatomical Region Laterality Modality Chest Radiographic Jennifer ging 08/22/2015 6:53 PM CDT Impressions 08/22/2015 6:54 PM CDT No acute disease in the chest. Narrative 08/22/2015 6:54 PM CDT CHEST - TWO VIEWS INDICATION: Syncope and collapse. ??Syncopal episode.. COMPARISON: None. FINDINGS: Frontal and lateral views of the chest show the lungs to be clear of confluent infiltrates. There are no pleural effusions. The AP diameter of the chest is increased which can be a marker for chronic obstructive pulmonary disease. ??Heart size is normal.. Procedure Note Luis F Odom MD - 08/22/2015 CHEST - TWO VIEWS INDICATION: Syncope and collapse. Syncopal episode.. COMPARISON: None. FINDINGS: Frontal and lateral views of the chest show the lungs to be clear of confluent infiltrates. There are no pleural effusions. The AP diameter of the chest is increased which can be a marker for chronic obstructive pulmonary disease. Heart size is normal.. IMPRESSION No acute disease in the chest. Saloni Das APRN-POLICY OFFICER DIAGNOSTIC IMAGING ORDERABLES * TSH (08/22/2015 6:24 PM CDT) TSH 2.03 0.358 - 3.740 uIU/mL 08/22/2015 7:33 PM CDT [facility] Blood BLOOD SPECIMEN / Unknown Venipuncture / Unknown 08/22/2015 6:24 PM CDT 08/22/2015 6:31 PM CDT Saloni Das APRN-POLICY OFFICER LAB - CHEMISTRY OR DERABLES Performing Organization Address City/State/[facility] Co de Phone Number [facility] [address] [place] [address] * NT-PRO BNP (08/22/2015 6:24 PM CDT) NT-proBNP 87.0 <300.0 pg/mL 08/22/2015 7:09 PM CDT [facility] Blood BLOOD SPECIMEN / Unknown Venipuncture / Unknown 08/22/2015 6:24 PM CDT 08/22/2015 6:31 PM CDT Narrative [facility] - 08/22/2015 7:09 PM CDT NT-proBNP Patient Age ? Acute HF Unlikely ? Acute HF Likely <50 years ? <300 pg/mL ? >450 pg/mL 50-75 years ?<300 pg/mL ? >900 pg/mL >75 years ? <300 pg/mL ? >1800 pg/mL Reference: CYNTHIA Tolentino et al. ICON Study. Heart Journal (2006) 27, 330- [phone] Both BNP and NT-proBNP derive from the precursor molecule called proBNP which is secreted from the ventricles in response to ventricle volume expansion and/or pressure overload. The secreted proBNP is subsequently cleaved by enzymes to form BNP, the active hormone and NT-proBNP an inactive metabolite. NT-proBNP has a longer half-life of 1.5-2.0 hours verses BNP with a half-life of 20 min for BNP. Both are useful biomarkers of ventricular distension due to increased intracardiac pressure. Both BNP and NT-proBNP increase with age and renal insufficiency. Increased concentrations of NT-proBNP have also been observed in the setting of acute myocardial infarction, right ventricular failure, valvular heart disease, and atrial fibrillation. Saloni Das APRN-POLICY OFFICER LAB - CHEMISTRY OR DERABLES Performing Organization Address [facility] Co de Phone Number [facility] [address] [address] * TROPONIN I (08/22/2015 6:24 PM CDT) [facility] Troponin I <0.015 0.000 - 0.049 ng/mL 08/22/2015 6:50 PM CDT [facility] Blood BLOOD SPECIMEN / Unknown Venipuncture / Unknown 08/22/2015 6:24 PM CDT 08/22/2015 6:31 PM CDT Narrative [facility] - 08/22/2015 6:50 PM CDT Note: Diagnosis of myocardial infarction requires symptoms of ischemia or EKG changes of ischemia and Troponin I >99th of normal (0.05 ng/mL). Troponin should be drawn on initial assessment and 3-6 hours later as clinically indicated. Any condition resulting in myocardial cell damage can increase cardiac troponin levels. In addition to myocardial infarction, these include but are not limited to congestive heart failure (CHF), arrhythmia, myocarditis, and non-cardiac related causes such as pulmonary embolism, renal failure and sepsis. Arminda Gastelum MD LAB - CHEMISTRY ORDERABLES Performing Organization Address [facility] Co de Phone Number [facility] [address] [place] [phone] * (ABNORMAL) COMPREHENSIVE METABOLIC PANEL (08/22/2015 6:24 PM CDT) [facility] Glucose 92 74 - 106 mg/dL 08/22/2015 6:50 PM [facility] Sodium 143 136 - 145 mmol/L 08/22/2015 6:50 PM [facility] Potassium 3.7 3.5 - 5.1 mmol/L 08/22/2015 6:50 PM [facility] Chloride 108(H) 98 - 107 mmol/L 08/22/2015 6:50 PM [facility] CO2 25 22 - 31 mmol/L 08/22/2015 6:50 PM [facility] Calcium 8.5 8.5 - 10.1 mg/dL 08/22/2015 6:50 PM [facility] Anion Gap 10 5 - 20 mmol/L 08/22/2015 6:50 PM [facility] BUN 16 7 - 21 mg/dL 08/22/2015 6:50 PM [facility] Creatinine 1.52(H) 0.50 - 1.30 mg/dL 08/22/2015 6:50 PM [facility] Alkaline Phosphatase 56 38 - 126 U/L 08/22/2015 6:50 PM [facility] ALT 19 12 - 78 U/L 08/22/2015 6:50 PM [facility] AST 16 5 - 40 U/L 08/22/2015 6:50 PM [facility] Protein Total 6.6 6.4 - 8.2 gm/dL 08/22/2015 6:50 PM [facility] Albumin 3.5 3.4 - 5.0 gm/dL 08/22/2015 6:50 PM [facility] Bilirubin Total 0.4 0.2 - 1.0 mg/dL 08/22/2015 6:50 PM [facility] eGFR by MDRD 47(L) >60 mL/min/1.7 3m2 08/22/2015 6:50 PM [facility] eGFR by MDRD 57(L) >60 mL/min/1.7 3m2 08/22/2015 6:50 PM [facility] Blood BLOOD SPECIMEN / Unknown Venipuncture / Unknown 08/22/2015 6:24 PM CDT 08/22/2015 6:31 PM T Arminda Gastelum MD LAB - CHEMISTRY ORDERABLES [facility] [address] [address] * (ABNORMAL) CBC W AUTO DIFFERENTIAL (08/22/2015 6:24 PM CDT) WBC 7.7 4.4 - 10.7 x10E9/L 08/22/2015 6:35 PM CDT [facility] WBC Corrected x10E9/L 08/22/2015 6:35 PM CDT [facility] RBC 3.85 3.80 - 5.40 x10E12/L 08/22/2015 6:35 PM CDT [facility] Hemoglobin 12.6 12.0 - 17.6 gm/dL 08/22/2015 6:35 PM CDT [facility] Hematocrit 36.5 35.2 - 51.7 % 08/22/2015 6:35 PM CDT [facility] MCV 94.8 80.7 - 98.3 fl 08/22/2015 6:35 PM CDT [facility] MCH 32.7 26.7 - 34.0 pg 08/22/2015 6:35 PM CDT [facility] MCHC 34.5 30.8 - 35.9 gm/dL 08/22/2015 6:35 PM CDT [facility] Platelet Count 216 153 - 416 x10E9/L 08/22/2015 6:35 PM CDT [facility] RDW-CV 12.6 12.1 - 14.9 % 08/22/2015 6:35 PM CDT [facility] MPV 9.9 9.4 - 12.9 fl 08/22/2015 6:35 PM CDT [facility] Neutrophils % 45.0 44.0 - 73.0 % 08/22/2015 6:35 PM CDT [facility] Lymphocytes % 41.2 20.0 - 43.0 % 08/22/2015 6:35 PM CDT [facility] Monocytes % 7.3 5.0 - 13.0 % 08/22/2015 6:35 PM CDT [facility] Eosinophils % 5.2 0.0 - 6.0 % 08/22/2015 6:35 PM CDT [facility] Basophils % 1.2 0.0 - 2.0 % 08/22/2015 6:35 PM CDT [facility] Immature Granulocytes 0.1 0 - 1 % 08/22/2015 6:35 PM CDT [facility] Neutrophil Absolute 3.46 2.01 - 7.14 x10E9/L 08/22/2015 6:35 PM CDT [facility] Lymphocytes Absolute 3.17 1.07 - 3.94 x10E9/L 08/22/2015 6:35 PM CDT [facility] Monocytes Absolute 0.56 0.26 - 1.07 x10E9/L 08/22/2015 6:35 PM CDT [facility] Eosinophils Absolute 0.40 0 - 0.47 x10E9/L 08/22/2015 6:35 PM T [facility] Basophils Absolute 0.09(H) 0 - 0.08 x10E9/L 08/22/2015 6:35 PM T [facility] Immature Granulocytes Absolute 0.01 0.00 - 0.06 x10E9/L 08/22/2015 6:35 PM T [facility] nRBC Auto 0 /100 WBC 08/22/2015 6:35 PM T [facility] Blood BLOOD SPECIMEN / Unknown Venipuncture / Unknown 08/22/2015 6:24 PM CDT 08/22/2015 6:31 PM CDT Arminda Gastelum MD LAB - HEMATOLOGY ORDERABLES Performing Organization Address City/State/[facility] Co de Phone Number [facility] [address] [place] [address] documented in this encounter Visit Diagnoses Diagnosis Syncope and collapse documented in this encounter Administered Medications Inactive Administered Medications - up to 3 most recent administrations Medication Order MAR Action Action Date Dose Rate Site 0.9% NaCl infusion at 125 mL/hr, Intravenous, CONTINUOUS, Starting on 08/22/15 at 2315, Until 08/23/15 at 1443 $ New Bag/Syringe 08/23/2015 6:59 AM CDT 125 mL/hr $ New Bag/Syringe 08/22/2015 11:05 PM CDT 125 m L/hr 0.9% NaCl IV Bolus 1,000 mL, Administer over 61 Minutes, ONCE, 1 dose, On 08/22/15 at 1945 $ Given 08/22/2015 7:46 PM CDT 1,000 mL enoxaparin (LOVENOX) injection 40 mg 40 mg, Subcutaneous, DAILY AT 0600, First dose on 08/23/15 at 0600, Until Discontinued, (for prefilled syringes) do not expel air bubble from the syringe prior to the injection Remind Patient to not rub injection site. Could cause hematoma. $ Given 08/23/2015 8:09 AM CDT 40 mg Abdominal Tissue documented in this encounter Active and Recently Administered Medications Times are shown in CDT. Scheduled Medication Order 08/21/2015 08/22/2015 08/23/2015 0.9% NaCl IV Bolus (COMPLETED) 1,000 mL, Administer over 61 Minutes, ONCE, 1 dose, On 08/22/15 at 1945 1946 ($ Given - Provider: Elizabeth Panda, RN)7 (Rx Stopped - Provider: Shalini Grant, RN) enoxaparin (LOVENOX) injection 40 mg (CANCELED) 40 mg, Subcutaneous, DAILY AT 0600, First dose on 08/23/15 at 0600, Until Discontinued, (for prefilled syringes) do not expel air bubble from the syringe prior to the injection Remind Patient to not rub injection site. Could cause hematoma. 0809 ($ Given - Provider: Starr Draper RN) Continuous Medication Order 08/21/2015 08/22/2015 08/23/2015 0.9% NaCl infusion (CANCELED) at 125 mL/hr, Intravenous, CONTINUOUS, Starting on 08/22/15 at 2315, Until 08/23/15 at 1443 2305 ($ New Bag/Syringe - Provider: Shalini Grant, RN) 0659 ($ New Bag/Syringe - Provider: Shalini Grant, RN) documented in this encounter
--- OUTSIDE RECORDS SUMMARY | 2024-03-19 01:58 | XMS_ITS | Clinical Summary ---
Author Organization [facility] Address [address] [place] [id number] Care Team Providers Care Np Name Role Phone Papi Cannon MD Primary Care Provider +1- [phone] Allergies No known active allergies Medications hydroCHLOROthiazi [...] Diagnosed Date Resolved Date Hypertension 05/06/2016 06/22/2018 Family History Medical History Relation Name Comments Heart disease Father Family history of cardiac disorder - (Added by TW Conv) Heart disease Mother Family history of cardiac disorder - (Added by TW Conv) Relation Name Status Comments Father Mother Social History Tobacco Use Types Packs/Day Years [...] on file 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 Gender Identity Not on file Sexual Orientation Not on file Obstetrics History Last Filed Vital Signs Vital Sign Reading [...] 10/12/2023 12:11 PM CDT Plan of Treatment Health Maintenance Due Date Last Done Comments Colon Cancer Screening-Colonoscopy 1955 Depression Screening 1956 Fall Risk Assessment 1955 Hepatitis C Screening 1956 Prostate Cancer Screening-PSA 1956 Hepatitis B Screening 1974 Zoster Vaccine (1 of 2) 2006 Abdominal Aortic Aneurysm (AAA) Screen 2021 Pneumococcal vaccine 65+ (1 of 1 - PCV) 2021 Well Visit 65+ 2021 DTaP/Tdap/Td Vaccine (2 - Td or Tdap) 10/01/2023 Covid-19 Vaccine (3 - season) 2023, 05/30/2020 Influenza Vaccine (#1) 2023 Insurance [facility] [employer] Care Teams Np Relationship Specialty Start Date End Date Papi Cannon MD [address] [facility] [address] [place], [place] [phone] PCP - General 03/24/17
--- OUTSIDE RECORDS SUMMARY | 2024-03-19 01:58 | XMS_ITS | Encounter Summary ---
Author Organization [facility] Address [address] [place] [address] Phone Care Team Providers Care Carpenter/Labor Name Role Phone Papi Cannon MD Primary Care Provider +1- [phone] Encounter Details Date Type Department Care Team (Late st Contact Info) Description 10/27/2017 Telephone [facility] Cardiology [address] [facility] [address] [place] [address] [place] [address] Toño Tillman MD [address] [facility] [address] [place], [place] [id number] Social History Tobacco Use Types Packs/Day Years Used Date Smoking Tobacco: Former Smokeless Tobacco: Never Sex and Gender Information Value Date Recorded Sex Assigned at Not on file Legal Sex 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
--- OUTSIDE RECORDS SUMMARY | 2024-03-19 01:58 | XMS_ITS | Encounter Summary ---
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
--- OUTSIDE RECORDS SUMMARY | 2024-03-19 01:58 | XMS_ITS | Encounter Summary ---
Author Organization [facility] Address [address] [place] [address] Care Team Providers Care Chemical Plant Manager Name Role Phone Joby Pitt MD Primary Care Provider + Reason for Visit * Reason Comments Swelling Knee right knee pain that started yesterday after twisting his when getting on a boat. says he cannot bear weight on it or stretch it out Encounter Details Date Type Department Care Team (Late st Contact Info) Description 09/19/2011 11:21 AM CDT - 09/19/2011 1:51 PM CDT Emergency ER at [facility] [address] [place] [id number] Gato Galindo MD [address] [place] [address] Knee pain; Ruptured synovial cyst of popliteal space Discharge Disposition: Home or Self Care Social History Tobacco Use Types Packs/Day Years Used Date Smoking Tobacco: Never Assessed Sex and Gender Information Value Date Recorded Sex Assigned at Not on file Gender Identity Not on file Sexual Orientation Not on file documented as of this encounter Last Filed Vital Signs Vital Sign Reading Time Taken Comments Blood Pressure 140/88 09/19/2011 11:33 AM CDT Pulse 65 09/19/2011 11:33 AM CDT Temperature 37.1 ??C (98.7 ??F) 09/19/2011 11:33 AM C DT Respiratory Rate 18 09/19/2011 11:33 AM CDT Oxygen Saturation 98% 09/19/2011 11:33 AM CDT Inhaled Oxygen Concentration - - Weight 79.4 kg (175 lb) 09/19/2011 11:33 AM CDT Height 182.9 cm (6') 09/19/2011 11:33 AM CDT Body Mass Index 23.73 09/19/2011 11:33 AM CDT documented in this encounter Discharge Instructions * Discharge Instructions* Gato Galindo MD - 09/19/2011 1:42 PM CDT Knee Pain, General The knee is the complex joint between your thigh and your lower leg. It is made up of bones, tendons, ligaments, and cartilage. The bones that make up the knee are: ?? The femur in the thigh. ?? The tibia and fibula in the lower leg. ?? The patella or kneecap riding in the groove on the lower femur. CAUSES Knee pain is a common complaint with many causes. A few of these causes are: ?? Injury, such as: l A ruptured ligament or tendon injury. l Torn cartilage. ?? Medical conditions, such as: l Gout l Arthritis l Infections ?? Overuse, over training or overdoing a physical activity. Knee pain can be minor or severe. Knee pain can accompany debilitating injury. Minor knee problems often respond well to self-care measures or get well on their own. More serious injuries may need medical intervention or even surgery. Symptoms The knee is complex. Symptoms of knee problems can vary widely. Some of the problems are: ?? Pain with movement and weight bearing. ?? Swelling and tenderness. ?? Buckling of the knee. ?? Inability to straighten or extend your knee. ?? Your knee locks and you cannot straighten it. ?? Warmth and redness with pain and fever. ?? Deformity or dislocation of the kneecap. DIAGNOSIS Determining what is wrong may be very straight forward such as when there is an injury. It can alsobe challenging because of the complexity of the knee. Tests to make a diagnosis may include: ?? Your caregiver taking a history and doing a physical exam. ?? Routine X-rays can be used to rule out other problems. X-rays will not reveal a cartilage tear. Some injuries of the knee can be diagnosed by: l Arthroscopy a surgical technique by which a small video camera is inserted through tiny incisionson the sides of the knee. This procedure is used to examine and repair internal knee joint problems. Tiny instruments can be used during arthroscopy to repair the torn knee cartilage (meniscus). l Arthrography is a radiology technique. A contrast liquid is directly injected into the knee joint. Internal structures of the knee joint then become visible on X-ray film. l An MRI scan is a non x-ray radiology procedure in which magnetic grant and a computer produce two- or three-dimensional images of the inside of the knee. Cartilage tears are often visible using anMRI scanner. MRI scans have largely replaced arthrography in diagnosing cartilage tears of the knee. ?? Blood work. ?? Examination of the fluid that helps to lubricate the knee joint (synovial fluid). This is done by taking a sample out using a needle and a syringe. treatment The treatment of knee problems depends on the cause. Some of these treatments are: ?? Depending on the injury, proper casting, splinting, surgery or physical therapy care will be needed. ?? Give yourself adequate recovery time. Do not overuse your joints. If you begin to get sore during workout routines, back off. Slow down or do fewer repetitions. ?? For repetitive activities such as cycling or running, maintain your strength and nutrition. ?? Alternate muscle groups. For example if you are a weight route contractor, work the upper body on one day and the lower body the next. ?? Either tight or weak muscles do not give the proper support for your knee. Tight or weak musclesdo not absorb the stress placed on the knee joint. Keep the muscles surrounding the knee strong. ?? Take care of mechanical problems. l If you have flat feet, orthotics or special shoes may help. See your caregiver if you need help. l Arch supports, sometimes with wedges on the inner or outer aspect of the heel, can help. These can shift pressure away from the side of the knee most bothered by osteoarthritis. l A brace called an property management coordinator brace also may be used to help ease the pressure on the most arthritic side of the knee. ?? If your caregiver has prescribed crutches, braces, wraps or ice, use as directed. The acronym for this is BREWSTER. This means protection, rest, ice, compression and elevation. ?? Nonsteroidal anti-inflammatory drugs (NSAID's), can help relieve pain. But if taken immediately after an injury, they may actually increase swelling. Take NSAID's with food in your stomach. Stop them if you develop stomach problems. Do not take these if you have a history of ulcers, stomach painor bleeding from the bowel. Do not take without your caregiver's approval if you have problems with fluid retention, heart failure, or kidney problems. ?? For ongoing knee problems, physical therapy may be helpful. ?? Glucosamine and chondroitin are mghp-hxo-eoekkku dietary supplements. Both may help relieve the pain of osteoarthritis in the knee. These medicines are different from the usual anti-inflammatory drugs. Glucosamine may decrease the rate of cartilage destruction. ?? Injections of a corticosteroid drug into your knee joint may help reduce the symptoms of an arthritis flare-up. They may provide pain relief that lasts a few months. You may have to wait a few months between injections. The injections do have a small increased risk of infection, water retention and elevated blood sugar levels. ?? Hyaluronic acid injected into damaged joints may ease pain and provide lubrication. These injections may work by reducing inflammation. A series of shots may give relief for as long as six months. ?? Topical painkillers. Applying certain ointments to your skin may help relieve the pain and stiffness of osteoarthritis. Ask your pharmacist for suggestions. Many over the-counter products are approved for temporary relief of arthritis pain. ?? In some countries, doctors often prescribe topical NSAID's for relief of chronic conditions suchas arthritis and tendinitis. A review of treatment with NSAID creams found that they worked as wellas oral medications but without the serious side effects. Prevention ?? Maintain a healthy weight. Extra pounds put more strain on your joints. ?? Get strong, stay limber. Weak muscles are a common cause of knee injuries. Stretching is important. Include flexibility exercises in your workouts. ?? Be smart about exercise. If you have osteoarthritis, chronic knee pain or recurring injuries, you may need to change the way you exercise. This does not mean you have to stop being active. If yourknees ache after jogging or playing basketball, consider switching to swimming, water aerobics or other low-impact activities, at least for a few days a week. Sometimes limiting high-impact activities will provide relief. ?? Make sure your shoes fit well. Choose footwear that is right for your sport. ?? Protect your knees. Use the proper gear for knee-sensitive activities. Use kneepads when playingvolleyball or laying carpet. Buckle your seat belt every time you drive. Most shattered kneecaps occur in car accidents. ?? Rest when you are tired. SEEK MEDICAL CARE IF: You have knee pain that is continual and does not seem to be getting better. Seek IMMEDIATE MEDICAL CARE IF: Your knee joint feels hot to the touch and you have a high fever. MAKE SURE YOU: ?? Understand these instructions. ?? Will watch your condition. ?? Will get help right away if you are not doing well or get worse. Document Released: 01/15/2008 Document Re-Released: 06/16/2009 ExitCare?? Patient Information ??2009 [employer]. * Discharge Instructions* Document, Scanned - 10/06/2011 1:27 PM CDT documented in this encounter Medications at Time of Discharge Medication Sig Dispensed Refills Start Date End Date hydrocodone-acetaminophen (VICODIN) 5-500 MG tablet Take 1-2 Tabs by mouth 4 times daily as needed for Pain. 20 Tab 0 09/19/2011 08/22/2015 documented as of this encounter ED Notes * Frank Groves RN - 09/19/2011 1:50 PM CDT Pt discharged aox3 with family at side * Gato Galindo MD - 09/19/2011 11:40 AM CDT Provider contact with the patient: 09/19/2011 11:40 AM Olman Beth [id number] [facility] EMERGENCY DEPT History Chief Complaint Patient presents with ??? Swelling Knee right knee pain that started yesterday after twisting his when getting on a boat. says he cannot bear weight on it or stretch it out HPI 11:40 AM Doctor at bedside Olman Beth is a 56 y.o. male who presents to the ED complaining of R knee pain onset yesterday with associated swelling. Patient states he was stepping off the dock to get on the boat when his knee popped . Patient is unable to bear weight or stretch it out. The pain worsened with walking and alleviated with rest. Patient denies striking head, numbness, tingling, focal weakness, or any othercomplaints at this time. Of note, per , green skin color is due to application of Biofreeze. Physician(s): Joby Pitt MD (PCP) PMH: Negative No past surgical history on file. No family history on file. History Social History ??? Marital Status: Spouse Name: N/A Number of Children: N/A ??? Years of Education: N/A Occupational History ??? Not on file. Social History Main Topics ??? Smoking status: Not on file ??? Smokeless tobacco: Not on file ??? Alcohol Use: Not on file ??? Drug Use: Not on file ??? Sexually Active: Not on file Other Topics Concern ??? Not on file Social History Narrative ??? No narrative on file Review of Systems Review of Systems Constitutional: Negative. Negative for fever and chills. HENT: Negative. Negative for sore throat and neck pain. Eyes: Negative for blurred vision and double vision. Respiratory: Negative. Negative for cough and shortness of breath. Cardiovascular: Negative. Negative for chest pain and palpitations. Gastrointestinal: Negative. Negative for nausea, vomiting and abdominal pain. Genitourinary: Negative. Negative for dysuria and flank pain. Musculoskeletal: Positive for joint pain (R knee). Negative for falls. Skin: Negative. Negative for itching and rash. Neurological: Negative. Negative for dizziness, tingling, sensory change, focal weakness and headaches. All other systems reviewed and are negative. Physical Exam BP 140/88 Pulse 65 Temp 98.7 ??F Resp 18 Ht 6' (1.829 m) Wt 175 lb (79.379 kg) BMI 23.73 kg/m2 SpO2 98% Physical Exam Nursing note and vitals reviewed. Constitutional: He is oriented to person, place, and time and well-developed, well-nourished, and in no distress. No distress. HENT: Head: Normocephalic and atraumatic. Eyes: Conjunctivae and EOM are normal. Pupils are equal, round, and reactive to light. Neck: Normal range of motion. Neck supple. Cardiovascular: Normal rate, regular rhythm, normal heart sounds and intact distal pulses. Exam reveals no gallop. No murmur heard. Pulmonary/Chest: Effort normal and breath sounds normal. Abdominal: Soft. Musculoskeletal: He exhibits edema and tenderness. Marked amount of swelling of financial assistance advisor popliteal fossa No patellar tenderness 20% flexion of R knee General edema surrounding R knee Neurological: He is alert and oriented to person, place, and time. No cranial nerve deficit. Coordination normal. GCS score is 15. Skin: Skin is warm and dry. He is not diaphoretic. Medications Current Outpatient Prescriptions Medication Sig Dispense Refill ??? hydrocodone-acetaminophen (VICODIN) 5-500 MG tablet Take 1-2 Tabs by mouth 4 times daily as needed for Pain. 20 Tab 0 Procedures Procedures EKG Interpretation Lab Interpretation Oxygen Saturation Interpretation The oxygen saturation level is: 98%. The patient was on Room Air for the saturation measurement. Measurement frequency: Spot Check. Oxygen saturation interpretation is Normal. No results found for this visit on 09/19/11. XR KNEE 4+ VW RIGHT Final Result: 1. Moderate joint effusion. US SOFT TISSUE LESION(S) Final Result: Popliteal cyst as described Progress Notes 1:35 PM Knee immobilizer applied to R knee. 1:43 PM Recheck patient. Patient is feeling better at this time and is comfortable with going home.I have informed the patient of the results and diagnosis. The patient verbalized understanding. I have given instructions regarding the diagnosis as well as any return precautions and follow up instru ctions. Any prescriptions given to the patient are to be taken accordingly. All questions and concerns have been addressed. ED Course: Patient is stable and ready for discharge. Medical Decision Making I have reviewed the: Nursing Notes and Vitals. I have interpreted the following results: X-Ray, Ultrasound and Oxygen Saturation. Clinical Impression Encounter Diagnoses Name Primary? Knee pain ??? Ruptured synovial cyst of popliteal space New Prescriptions HYDROCODONE-ACETAMINOPHEN (VICODIN) 5-500 MG TABLET Take 1-2 Tabs by mouth 4 times daily as needed for Pain. Follow-up with: Adri Verduzco MD [facility] Orthopaedic Surger [address] [place] [id number] Joby Pitt MD 1:44 PM DISCHARGED HOME This note accurately reflects work and decisions made by me. Written by Francisco Javier Venegas, acting as scribe for Dr. Gato Galindo. * Damaris Mcknight PA - 09/19/2011 11:34 AM CDT 56 yo male reports stepping off dock yesterday, and developed right knee pain. Tender to medial aspect of right knee. States he can't bear weight. Using crutches. Minimal swelling. No redness or warmth. xr ordered. documented in this encounter Miscellaneous Notes * Miscellaneous Scans - Document, Scanned - 10/10/2011 11:01 AM CDT documented in this encounter Plan of Treatment Not on file documented as of this encounter Procedures Procedure Name Priority Date/Time Associated Diagnosis Comments XR KNEE RIGHT 4VW OR MORE STAT 09/19/2011 12:29 PM CDT Knee pain US SOFT TISSUE LESION(S) STAT 09/19/2011 12:12 PM CDT Knee pain documented in this encounter Results * XR KNEE 4+ VW RIGHT (09/19/2011 12:29 PM CDT) Anatomical Region Laterality Modality Lower Extremity Radiographic Jennifer ging 09/19/2011 12:3 4 PM CDT Impressions 09/19/2011 12:34 PM CDT 1. Moderate joint effusion. Narrative 09/19/2011 12:34 PM CDT HISTORY: Pain and swelling. EXAM: ??Four views right knee 09/19/2011. FINDINGS: ??No fracture, dislocation or other osseous abnormality is present. A moderate joint effusion is present. Procedure Note Dylan Wallace MD - 09/19/2011 HISTORY: Pain and swelling. EXAM: Four views right knee 09/19/2011. FINDINGS: No fracture, dislocation or other osseous abnormality is present. A moderate joint effusion is present. IMPRESSION 1. Moderate joint effusion. Damaris BENAVIDEZ DIAGNOSTIC IMAGING O RDERABLES * US SOFT TISSUE LESION(S) (09/19/2011 12:12 PM CDT) Anatomical Region Laterality Modality Ultrasound 09/19/2011 12:2 9 PM CDT Impressions 09/19/2011 12:29 PM CDT Popliteal cyst as described Narrative 09/19/2011 12:29 PM CDT Ultrasound right popliteal space. HISTORY: Swelling after injury. Images show a cyst in the popliteal space containing septa a measuring about 4.9 x 1.7 x 3.5 cm. A portion of the lesion has an extension directed toward the joint space. This is most likely a popliteal cyst possibly with some hemorrhage present. No solid masses seen. Procedure Note Jairo Contreras MD - 09/19/2011 Ultrasound right popliteal space. HISTORY: Swelling after injury. Images show a cyst in the popliteal space containing septa a measuring about 4.9 x 1.7 x 3.5 cm. A portion of the lesion has an extension directed toward the joint space. This is most likely a popliteal cyst possibly with some hemorrhage present. No solid masses seen. IMPRESSION Popliteal cyst as described Gato Galindo MD US ORDERABLES documented in this encounter Visit Diagnoses Diagnosis Knee pain Pain in joint, lower leg Ruptured synovial cyst of popliteal space Synovial cyst of popliteal space documented in this encounter Care Teams Chemical Plant Manager Relationship Specialty Start Date End Date Joby Pitt MD [address] [address] PCP - General 09/19/11 08/21/15 documented as of this encounter
--- OUTSIDE RECORDS SUMMARY | 2024-03-19 01:58 | XMS_ITS | Encounter Summary ---
Author Organization [facility] Address [address] [place] [address] Phone Care Team Providers Care Job Press Operator Name Role Phone Papi Cannon MD Primary Care Provider [phone]- [phone] Reason for Visit * Reason Onset Date Comments Test Results 10/26/2017 Encounter Details Date Type Department Care Team (Late st Contact Info) Description 10/26/2017 Telephone [facility] Cardiology [address] [facility] 8th [place] [address] [place] [address] [place] [address] [place] [address] Test Results Social History Tobacco Use Types Packs/Day Years Used Date Smoking Tobacco: Former Smokeless Tobacco: Never Sex and Gender Information Value Date Recorded Sex Assigned at Not on file 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 She will notify the patient. * Telephone Encounter - Jie Liang - 10/26/2017 4:00 PM CDT ----- Message from Ross Hansen MD sent at 10/26/2017 3:44 PM CDT ----- Let him know that his carotids have some plaque, but nothing that we need to address now and nothing that would have caused any symptoms. Good news! documented in this encounter Plan of Treatment Not on file documented as of this encounter Visit Diagnoses Not on filedocumented in this encounter Care Teams Job Press Operator Relationship Specialty Start Date End Date Papi Cannon MD [address] [place] [id number] PCP - General 03/24/17 documented as of this encounter
--- OUTSIDE RECORDS SUMMARY | 2024-03-19 01:58 | XMS_ITS | Encounter Summary ---
Author Organization [facility] Address [address] [place] [address] Care Team Providers Care [place] Home Demonstration Agent Name Role Phone Miscellaneous, Not In File Primary Care Provider Unavailable Encounter Details Date Type Department Care Team (Late st Contact Info) Description 01/28/2017 11:05 PM CDT - 01/29/2017 5:40 AM CDT Emergency [facility] Emergency Department [address] [place] [address] Carter Justin MD PhD [address] [place] [address] Discharge Disposition: Discharge to home or self care Social History Tobacco Use Types Packs/Day Years Used Date Smoking Tobacco: Never Assessed Sex and Gender Information Value Date Recorded Sex Assigned at Not on file 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 Gender Identity Not on file Sexual Orientation Not on file documented as of this encounter Discharge Disposition Disposition Code Departure Means Destination Discharge to home or self care documented in this encounter Plan of Treatment Not on file documented as of this encounter Procedures Procedure Name Priority Date/Time Associated Diagnosis Comments TROPONIN I STAT 01/29/2017 4:38 AM CDT DIFFERENTIAL AUTO STAT 01/29/2017 12: 37 AM CDT CBC WITH AUTO DIFFERENTIAL STAT 01/29/2017 12:37 AM CDT TROPONIN I STAT 01/29/2017 12:37 AM CDT BASIC METABOLIC PANEL STAT 01/29/2017 12:37 AM CDT DISCHARGE LABORATORY CUMULATIVE REPORT 01/29/2017 12:00 AM CDT documented in this encounter Results * Troponin I (01/29/2017 4:38 AM CDT) Troponin I <0.03 0.00 - 0.03 ng/mL [facility] Comment: Interpretive Data Serial determinations are recommended for the diagnosis of myocardial infarction (Third [place] Definition of Myocardial Infarction. ??J Am Anne Marie Cardiol 2012;60:1581-98). Current interpretive data was last revised on 13. Blood specimen (specimen) 01/29/2017 4:38 AM CDT 01/29/2017 4:50 AM CDT Carter Justin MD PhD LAB BLOOD ORDERABLE S Final Result [facility] Department [place] [address] * (ABNORMAL) Basic metabolic panel (01/29/2017 12:37 AM CDT) Pathologist [facility] Sodium 135 135 - 145 mmol/L [facility] Potassium, pl 3.8 3.3 - 4.9 mmol/L [facility] Comment:Hemolyzed; (+++); po tassium value may be falsely elevated by as much as 0.6 - 1.0 mmol/L. Suggest redraw and reanalysis. Chloride 99 97 - 110 mmol/L [facility] CO2 19(L) 22 - 32 mmol/L [facility] BUN 20 8 - 25 mg/dL [facility] Glucose 124 70 - 199 mg/dL [facility] Creatinine 0.98 0.80 - 1.30 mg/dL [facility] Calcium 9.3 8.5 - 10.3 mg/dL [facility] Anion gap 17(H) 2 - 15 mmol/L [facility] Blood specimen (specimen) 01/29/2017 12:37 AM CDT 01/29/2017 12:49 AM CDT Carter Justin MD PhD LAB BLOOD ORDERABLE S Final Result Performing Organization Address [facility] [place] [address] * Troponin I (01/29/2017 12:37 AM CDT) [facility] Troponin I <0.03 0.00 - 0.03 ng/mL [facility] Comment: Interpretive Data Serial determinations are recommended for the diagnosis of myocardial infarction (Third [place] Definition of Myocardial Infarction. ??J Am Anne Marie Cardiol 2012;60:1581-98). Current interpretive data was last revised on 13. Blood specimen (specimen) 01/29/2017 12:37 AM CDT 01/29/2017 12:49 AM CDT Carter Justin MD PhD LAB BLOOD ORDERABLE S Edited Result - Final Performing Organization Address [facility] de Phone Number [facility] [place] [address] * Differential, auto (01/29/2017 12:37 AM CDT) Pathologist [facility] Neutrophil pct 66.6 % [facility] Imm gran pct 0.3 % [facility] Lymphocyte pct 23.5 % [facility] Monocyte pct 6.0 % [facility] Eosinophil pct 3.0 % [facility] Basophil pct 0.6 % [facility] Neutrophil abs 6.17 1.70 - 6.50 K/cumm [facility] Imm gran abs 0.03 0.00 - 0.10 K/cumm [facility] Lymphocyte abs 2.18 0.80 - 3.30 K/cumm [facility] Monocyte abs 0.56 0.20 - 0.80 K/cumm [facility] Eosinophil abs 0.28 0.00 - 0.50 K/cumm [facility] Basophil abs 0.06 0.00 - 0.10 K/cumm [facility] Blood specimen (specimen) 01/29/2017 12:37 AM CDT 01/29/2017 12:49 AM CDT us Carter Justin MD PhD LAB BLOOD ORDERABLE S Final Result [facility] Department [place] [address] * (ABNORMAL) CBC with auto differential (01/29/2017 12:37 AM CDT) [facility] WBC 9.28 3.80 - 9.90 K/cumm [facility] RBC 3.65(L) 4.30 - 5.80 M/cumm [facility] Hgb 11.8(L) 13.0 - 17.5 g/dL [facility] Hct 34.8(L) 38.9 - 50.3 % [facility] MCV 95.3 81.3 - 96.4 fL [facility] MCH 32.3 27.1 - 33.3 pg [facility] MCHC 33.9 32.3 - 35.7 g/dL [facility] RDW CV 12.7 11.1 - 14.9 % [facility] RDW SD 44.7 35.7 - 48.1 fL [facility] Plt 241 150 - 400 K/cumm [facility] MPV 9.6 9.1 - 12.3 fL [facility] NRBC 0.0 0.0 - 0.2 % [facility] NRBC abs 0.00 0.00 - 0.01 K/cumm [facility] Blood specimen (specimen) 01/29/2017 12:37 AM CDT 01/29/2017 12:49 AM CDT us Carter Justin MD PhD LAB BLOOD ORDERABLE S Final Result [facility] Department [place] [address] * DISCHARGE LABORATORY CUMULATIVE REPORT (01/29/2017 12:00 AM CDT) Narrative 01/29/2017 12:00 AM CDT Ordered by an unspecified provider. us Historical Provider LAB BLOOD ORDERABLES Cathleen l Result documented in this encounter Visit Diagnoses Not on filedocumented in this encounter Care Teams [place] Home Demonstration Agent Relationship Specialty Start Date End Date Miscellaneous, Not In File PCP - General 01/28/1701/29 documented as of this encounter
--- OUTSIDE RECORDS SUMMARY | 2024-03-19 01:58 | XMS_ITS | Encounter Summary ---
Author Organization [facility] Address [address] [place] [address] Phone Care Team Providers Care Clinical Resource Manager Name Role Phone Papi Cannon MD Primary Care Provider +1- [phone] Reason for Visit * Diagnostic Imaging (Routine) - Closed Specialty Diagnoses / Procedures Referred By Contac t Referred To Contact Diagnoses Bruit of left carotid artery Procedures US Carotids Bilateral Ross Ramirez MD Phone: tel: fax: [address] [address] Referral ID Status Reason Start Date Expiration Date Visits Re quested Visits Authorized [id number] Closed 10/20/2017 05/01/2019 1 1 Encounter Details Date Type Department Care Team (Latest Contact Info) Description 10/26/2017 1:00 PM CDT Ancillary Procedure [facility] [place] [address] [place] [address] Advanced Medicine 8th [place] [address] [place] [id number] Bruit of left carotid artery Social History Tobacco Use Types Packs/Day Years Used Date Smoking Tobacco: Former Smokeless Tobacco: Never Sex and Gender Information Value Date Recorded Sex Assigned at Not on file 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 Gender Identity Not on file Sexual Orientation Not on file documented as of this encounter Plan of Treatment Not on file documented as of this encounter Procedures Procedure Name Priority Date/Time Associated Diagnosis Comments US CAROTIDS DUPLEX BILATERAL Schedule Routine, Read Routine (OP Routine) 10/26/2017 1:33 PM CDT Bruit of left carotid artery documented in this encounter Results * US Carotids Bilateral (10/26/2017 1:33 PM CDT) Anatomical Region Laterality Modality Vascular Bilateral Ultrasound 10/26/2017 1:02 PM CDT Narrative 10/26/2017 1:49 PM CDT [facility] - Department of Vascular Surgery, Vascular Laboratory [address] [place] [id number] Carotid Duplex Ultrasound Report Patient Name: JOSE F MARIE : 1955 (62y 3m) Study Date: 10/26/2017 1:02:21 PM Gender: M Tech: KELLEY Mchugh Location: Ref.Physician: ROSS RAMIREZ Height(Inch): BSA: Weight(LB): Quality: Adequate Order Physician: ROSS RAMIREZ Procedures: Carotid Report: Carotid duplex examination [...] PSV ?31.10 ? cm/sec ? Findings: Performing Sales And Distribution Clerk: Paty Branch, RVT. Dariana Bledsoe, CARTERT, RDMS. Rt Common Carotid [...] performed. Electronically Signed By: Sen Kinney MD [facility] 2017-10-26 13:49:26 CDT CC: CC: Procedure Note Sen Kinney MD - 10/26/2017 [facility] - Department of Vascular Surgery,Vascular Laboratory [address] [place] [address] Carotid Duplex Ultrasound Report Patient Name: JOSE F MARIEPatient ID: [id number] : 1955 (62y 3m)Study Date: 10/26/2017 1:02:21 PM Gender: MAccession #: [id number] Tech: M, BANUELOSLocation: Ref.Physician: Kamilla RAMIREZ(Inch): BSA: Weight(LB): Quality: AdequateOrder Physician: ROSS RAMIREZ Procedures: Carotid Report: Carotid duplex examination [...] cm/sec LT VERT PSV 31.10cm/sec Findings: Performing Sales And Distribution Clerk: Paty Branch, RVT. CARTER LawtonT, RDMS. Rt Common Carotid Artery: The plaque [...] performed. Electronically Signed By: Sen Kinney MD [facility] 2017-10-26 13:49:26 CDT CC: CC: us Ross Ramirez MD [facility] PROCEDURES Final Resu lt documented in this encounter Visit Diagnoses Diagnosis Bruit of left carotid artery documented in this encounter Care Teams Clinical Resource Manager Relationship Specialty Start Date End Date Ppai Cannon MD [address] [facility] [address] [place] [address] PCP - General 03/24/17 documented as of this encounter
--- OUTSIDE RECORDS SUMMARY | 2024-03-19 01:58 | XMS_ITS | Patient Health Summary ---
Author Organization [facility] Address [address] [address] Care Team Providers Care Welcome Desk Agent Name Role Phone Unavailable Primary Care Provider Unavailabl e Note from [facility],non-owned Affiliates and Associated Physician Practices is amultiple site organization consisting of ambulatory clinics and hospital sitesin [place], [place], [place] and [place]. This disclosure is being madepursuant to the Care Everywhere program and may not contain all information available regarding this patient. Last updated 17.[facility] Allergies No known active allergies Medications * Be aware that medications may not be up to date on this document. Alwaysverify current medications with the patient. * nicotine (NICODERM CQ) 14 MG/24HR patch(Started 08/23/2015) Apply 1 Patch to skin once daily Reasons: Nicotine Addiction Social History Tobacco Use Types Packs/Day Years [...] Mass Index 21.67 08/22/2015 8:48 PM CDT Procedures * CARDIAC EKG ORDER(Performed 09/14/2015) * CARDIAC RHYTHM STRIP ORDER(Performed 08/26/2015) * CARDIAC EKG ORDER(Performed 08/26/2015) * CBC W AUTO DIFFERENTIAL(Performed 08/23/2015) * BASIC METABOLIC PANEL (CALCIUM TOTAL)(Performed 08/23/2015) * TROPONIN I(Performed 08/23/2015) * URINALYSIS REFLEX MICROSCOPIC REFLEX CULTURE(Performed 08/22/2015) * TROPONIN I(Performed 08/22/2015) * CT HEAD WO CONTRAST(Performed 08/22/2015) Performed for Syncope and collapse * EKG 12-LEAD(Performed 08/22/2015) Performed for Syncope and collapse * D-DIMER(Performed 08/22/2015) * XR CHEST 2VW(Performed 08/22/2015) Performed for Syncope and collapse * TSH(Performed 08/22/2015) * NT-PRO BNP(Performed 08/22/2015) * TROPONIN I(Performed 08/22/2015) * COMPREHENSIVE METABOLIC PANEL(Performed 08/22/2015) * CBC W AUTO DIFFERENTIAL(Performed 08/22/2015) * XR KNEE RIGHT 4VW OR MORE(Performed 09/19/2011) Performed for Knee pain * US SOFT TISSUE LESION(S)(Performed 09/19/2011) Performed for Knee pain Results * CARDIAC EKG ORDER (09/14/2015 3:46 PM CDT) Only the most recent of2 resultswithin the time period is included. Narrative 09/14/2015 3:46 PM CDT Ordered by an unspecified provider. Scanned Document CARDIAC SERVICES ORD ERABLES * CARDIAC RHYTHM STRIP ORDER (08/26/2015 9:55 PM CDT) Narrative 08/26/2015 9:55 PM CDT Ordered by an unspecified provider. Scanned Document CARDIAC SERVICES ORD ERABLES * CBC W AUTO DIFFERENTIAL (08/23/2015 5:19 AM CDT) Only the most recent of2 resultswithin the time period is included. [facility] WBC 8.7 4.4 - 10.7 x10E9/L 08/23/2015 6:00 AM [facility] WBC Corrected x10E9/L 08/23/2015 6:00 AM [facility] RBC 3.87 3.80 - 5.40 x10E12/L 08/23/2015 6:00 AM [facility] Hemoglobin 12.5 12.0 - 17.6 gm/dL 08/23/2015 6:00 AM [facility] Hematocrit 36.5 35.2 - 51.7 % 08/23/2015 6:00 AM [facility] MCV 94.3 80.7 - 98.3 fl 08/23/2015 6:00 AM [facility] MCH 32.3 26.7 - 34.0 pg 08/23/2015 6:00 AM [facility] MCHC 34.2 30.8 - 35.9 gm/dL 08/23/2015 6:00 AM [facility] Platelet Count 195 153 - 416 x10E9/L 08/23/2015 6:00 AM [facility] RDW-CV 12.7 12.1 - 14.9 % 08/23/2015 6:00 AM [facility] MPV 10.2 9.4 - 12.9 fl 08/23/2015 6:00 AM [facility] Neutrophils % 58.5 44.0 - 73.0 % 08/23/2015 6:00 AM [facility] Lymphocytes % 29.5 20.0 - 43.0 % 08/23/2015 6:00 AM [facility] Monocytes % 5.7 5.0 - 13.0 % 08/23/2015 6:00 AM [facility] Eosinophils % 5.3 0.0 - 6.0 % 08/23/2015 6:00 AM [facility] Basophils % 0.9 0.0 - 2.0 % 08/23/2015 6:00 AM [facility] Immature Granulocytes 0.1 0 - 1 % 08/23/2015 6:00 AM [facility] Neutrophil Absolute 5.09 2.01 - 7.14 x10E9/L 08/23/2015 6:00 AM [facility] Lymphocytes Absolute 2.57 1.07 - 3.94 x10E9/L 08/23/2015 6:00 AM [facility] Monocytes Absolute 0.50 0.26 - 1.07 x10E9/L 08/23/2015 6:00 AM [facility] Eosinophils Absolute 0.46 0 - 0.47 x10E9/L 08/23/2015 6:00 AM [facility] Basophils Absolute 0.08 0 - 0.08 x10E9/L 08/23/2015 6:00 AM [facility] Immature Granulocytes Absolute 0.01 0.00 - 0.06 x10E9/L 08/23/2015 6:00 AM [facility] nRBC Auto 0 /100 WBC 08/23/2015 6:00 AM [facility] Blood BLOOD SPECIMEN / Unknown Lab Venipuncture / Unknown 08/23/2015 5:19 AM CDT 08/23/2015 5:47 AM T Saloni Das CHUCKING AND SAWING MACHINE OPERATOR-HVAC INSTALLATION TECHNICIAN LAB - HEMATOLOGY O RDERABLES [facility] [address] [place] [address] * (ABNORMAL) BASIC METABOLIC PANEL (CALCIUM TOTAL) (08/23/2015 5:19 AM T) [facility] Glucose 103 74 - 106 mg/dL 08/23/2015 6:05 AM [facility] Sodium 145 136 - 145 mmol/L 08/23/2015 6:05 AM [facility] Potassium 3.7 3.5 - 5.1 mmol/L 08/23/2015 6:05 AM [facility] Chloride 114(H) 98 - 107 mmol/L 08/23/2015 6:05 AM [facility] CO2 26 22 - 31 mmol/L 08/23/2015 6:05 AM [facility] Calcium 8.1(L) 8.5 - 10.1 mg/dL 08/23/2015 6:05 AM [facility] Anion Gap 5 5 - 20 mmol/L 08/23/2015 6:05 AM [facility] BUN 17 7 - 21 mg/dL 08/23/2015 6:05 AM CDT [facility] Creatinine 0.97 0.50 - 1.30 mg/dL 08/23/2015 6:05 AM T [facility] eGFR by MDRD >60 >60 mL/min/1.7 3m2 08/23/2015 6:05 AM CDT [facility] eGFR by MDRD >60 >60 mL/min/1.7 3m2 08/23/2015 6:05 AM CDT [facility] Blood BLOOD SPECIMEN / Unknown Lab Venipuncture / Unknown 08/23/2015 5:19 AM CDT 08/23/2015 5:47 AM CDT Saloni SINHA LAB - CHEMISTRY OR DERABLES Performing Organization Address [facility]/ZIP Co de Phone Number [facility] [address] [address] * TROPONIN I (08/23/2015 12:18 AM CDT) Only the most recent of3 resultswithin the time period is included. [facility] Troponin I <0.015 0.000 - 0.049 ng/mL 08/23/2015 12:49 AM T [facility] Blood BLOOD SPECIMEN / Unknown Lab Venipuncture / Unknown 08/23/2015 12:18 AM CDT 08/23/2015 12:30 AM CDT Narrative [facility] - 08/23/2015 12:49 AM CDT Note: [...] Arminda Gastelum MD LAB - CHEMISTRY ORDERABLES [facility] [address] [id number] * URINALYSIS ROUTINE W/REFLEX TO CULTURE (08/22/2015 9:59 PM CDT) Color UA Yellow Straw, Yellow, Dark Yellow 08/22/2015 10:07 PM T [facility] Clarity UA Clear 08/22/2015 10:07 PM CDT [facility] Specific [place] UA 1.010 1.005 - 1.030 08/22/2015 10:07 PM T [facility] pH UA 5.5 5.0 - 8.0 pH 08/22/2015 10:07 PM T [facility] Protein UA Negative Negative 08/22/2015 10:07 PM T [facility] Blood UA Negative Negative 08/22/2015 10:07 PM T [facility] Leukocyte UA Negative Negative 08/22/2015 10:07 PM T [facility] Nitrite UA Negative Negative 08/22/2015 10:07 PM [facility] Glucose UA Negative Negative 08/22/2015 10:07 PM T [facility] Ketone UA Negative Negative 08/22/2015 10:07 PM [facility] Bilirubin UA Negative Negative 08/22/2015 10:07 PM [facility] Urobilinogen UA 0.2 0.1 - 1.0 EU/dL 08/22/2015 10:07 PM [facility] Reflex Status Culture not indicated 08/22/2015 10:07 PM [facility] Urine URINE SPECIMEN OBTAINED BY CLEAN CATCH PROCEDURE / Unknown Collection / Unknown 08/22/2015 9:59 PM CDT 08/22/2015 10:02 PM CDT Saloni Das CHUCKING AND SAWING MACHINE OPERATOR-HVAC INSTALLATION TECHNICIAN LAB - URINALYSIS O RDERABLES [facility] [address] [place] [address] * CT HEAD NON CONTRAST (08/22/2015 8:01 [...] or syntax problems by a trained medical engineer. Findings: ? There is no intracranial mass-effect [...] or syntax problems by a trained medical engineer. Findings: There is no intracranial mass-effect or [...] Sinus disease as noted above. Saloni Das CHUCKING AND SAWING MACHINE OPERATOR-HVAC INSTALLATION TECHNICIAN CT ORDERABLES * EKG 12-LEAD (08/22/2015 7:17 PM CDT) Ventricular Rate 66 BPM [facility] Atrial Rate 66 BPM [facility] P-R Interval 152 ms [facility] QRS Duration ms 82 ms [facility] Q-T Interval ms 422 ms [facility] QTC Calculation (Bezet) 442 ms [facility] Calculated P [place] 68 degrees [facility] Calculated R [place] 20 degrees [facility] Calculated T [place] 35 degrees [facility] Interpretation EKG Normal sinus rhythm Septal infarct , age undetermined nonspecific ST and T-wave segment changes No previous ECGs available Confirmed by Harley Gutiérrez ([id number]) on 08/23/2015 3:02:06 PM [facility] M[facility] 08/22/2015 7:17 PM CDT 08/23/2015 3:02 PM CDT Saloni Das CHUCKING AND SAWING MACHINE OPERATOR-HVAC INSTALLATION TECHNICIAN ECG ORDERABLES [facility] * D-DIMER (08/22/2015 7:13 PM CDT) D-Dimer 0.26 0.17 - 0.5 mg/L FEU 08/22/2015 7:43 PM CDT [facility] Blood BLOOD SPECIMEN / Unknown Venipuncture / Unknown 08/22/2015 7:13 PM CDT 08/22/2015 7:22 PM CDT Narrative [facility] - 08/22/2015 7:43 PM CDT The [...] clinical presentation, and other findings. [facility] - COAGULATION ORDERABLES [facility] [address] [address] * XR CHEST PA AND LATERAL (08/22/2015 [...] acute disease in the chest. [facility] DIAGNOSTIC [facility]ING ORDERABLES * NT-PRO BNP (08/22/2015 6:24 PM CDT) NT-proBNP 87.0 <300.0 pg/mL 08/22/2015 7:09 PM CDT [facility] Blood BLOOD SPECIMEN / Unknown Venipuncture / Unknown 08/22/2015 6:24 PM CDT 08/22/2015 6:31 PM CDT Narrative [facility] - 08/22/2015 7:09 PM CDT NT-proBNP [...] heart disease, and atrial fibrillation. Saloni Das CHUCKING AND SAWING MACHINE OPERATOR-HVAC INSTALLATION TECHNICIAN LAB - CHEMISTRY OR DERABLES Performing Organization Address City/State/[facility] Co de Phone Number [facility] [address] [place] [address] * (ABNORMAL) COMPREHENSIVE METABOLIC PANEL (08/22/2015 6:24 PM CDT) [facility] Glucose 92 74 - 106 mg/dL 08/22/2015 6:50 PM CDT [facility] Sodium 143 136 - 145 mmol/L 08/22/2015 6:50 PM CDT [facility] Potassium 3.7 3.5 - 5.1 mmol/L 08/22/2015 6:50 PM CDT [facility] Chloride 108(H) 98 - 107 mmol/L 08/22/2015 6:50 PM CDT [facility] CO2 25 22 - 31 mmol/L 08/22/2015 6:50 PM CDT [facility] Calcium 8.5 8.5 - 10.1 mg/dL 08/22/2015 6:50 PM CDT [facility] Anion Gap 10 5 - 20 mmol/L 08/22/2015 6:50 PM CDT [facility] BUN 16 7 - 21 mg/dL 08/22/2015 6:50 PM CDT [facility] Creatinine 1.52(H) 0.50 - 1.30 mg/dL 08/22/2015 6:50 PM CDT [facility] Alkaline Phosphatase 56 38 - 126 U/L 08/22/2015 6:50 PM CDT [facility] ALT 19 12 - 78 U/L 08/22/2015 6:50 PM CDT [facility] AST 16 5 - 40 U/L 08/22/2015 6:50 PM CDT [facility] Protein Total 6.6 6.4 - 8.2 gm/dL 08/22/2015 6:50 PM CDT [facility] Albumin 3.5 3.4 - 5.0 gm/dL 08/22/2015 6:50 PM CDT [facility] Bilirubin Total 0.4 0.2 - 1.0 mg/dL 08/22/2015 6:50 PM CDT [facility] eGFR by MDRD 47(L) >60 mL/min/1.7 3m2 08/22/2015 6:50 PM CDT [facility] eGFR by MDRD 57(L) >60 mL/min/1.7 3m2 08/22/2015 6:50 PM CDT [facility] Blood BLOOD SPECIMEN / Unknown Venipuncture / Unknown 08/22/2015 6:24 PM CDT 08/22/2015 6:31 PM CDT Arminda Gastelum MD LAB - CHEMISTRY ORDERABLES [facility] [address] [address] * TSH (08/22/2015 6:24 PM CDT) TSH 2.03 0.358 - 3.740 uIU/mL 08/22/2015 7:33 PM CDT [facility] Blood BLOOD SPECIMEN / Unknown Venipuncture / Unknown 08/22/2015 6:24 PM CDT 08/22/2015 6:31 PM CDT Saloni Das CHUCKING AND SAWING MACHINE OPERATOR-HVAC INSTALLATION TECHNICIAN LAB - CHEMISTRY OR DERABLES [facility] [address] [address] * XR KNEE 4+ VW RIGHT (09/19/2011 [...]
--- OUTSIDE RECORDS SUMMARY | 2024-03-19 01:58 | XMS_ITS | Referral Summary ---
Author Organization [facility] Address [address] [place] [address] Care Team Providers Care Market Manager Name Role Phone Unavailable Primary Care Provider Unavailabl e Source Comments [facility],non-owned Affiliates and Associated Physician Practices is amultiple site organization consisting of ambulatory clinics and hospital sitesin [place], [place], [place] and [place]. This disclosure is being madepursuant to the Care Everywhere program and may not contain all information available regarding this patient. Last updated 17.[facility] Allergies No known active allergies Medications * Be aware that medications may not be up to date on this document. Alwaysverify current medications with the patient. Medication Sig Dispensed Refills Start Date End Date Status nicotine (NICODERM CQ) 14 MG/24HR patchIndications:Kristian otine Dependence Apply 1 Patch to skin once daily Reasons: Nicotine Addiction 30 Patch 0 08/23/2015 Active Social History Tobacco Use Types Packs/Day Years [...] Mass Index 21.67 08/22/2015 8:48 PM CDT Functional Status Functional Status Response Date of [...] person have difficulty concentrating/remembering/making decisions? No 08/22/2015 Plan of Treatment Not on file Advance Directives * Full Code (Latest Code Status on File) Date Activated Date Inactivated Comments 08/22/2015 8:47 PM 08/23/2015 2:44 PM
--- OUTSIDE RECORDS SUMMARY | 2024-03-19 01:58 | XMS_ITS | Clinical Summary ---
Author Organization [facility] Address [address] [place] [address] Care Team Providers Care Diving Fisher Name Role Phone Unavailable Primary Care Provider Unavailabl e Source Comments [facility],non-owned Affiliates and Associated Physician Practices is amultiple site organization consisting of ambulatory clinics and hospital sitesin [place], [place], [place] and [place]. This disclosure is being madepursuant to the Care Everywhere program and may not contain all information available regarding this patient. Last updated 17.[facility] Allergies No known active allergies Medications * [...] Mass Index 21.67 08/22/2015 8:48 PM CDT Plan of Treatment Health Maintenance Due Date Last Done Comments COLOGUARD (AGES 45-75) - COL ON CA SCREENING 1956 COLON MONITORING 1956 COLONOSCOPY - COLON CA SCREENING 1956 CT COLONOGRAPHY - COLON CA SCREENING 1955 Colorectal Cancer Screening 1956 FIT - COLON CA SCREENING 1956 FLEX SIG - COLON CA SCREENING 1956 LIPID TESTING 1956 PNEUMOCOCCAL VACCINE 65+ (1 of 2 - PCV) 1962 HEPATITIS C SCREENING 07/04/1974 DTAP/TDAP/TD VACCINES (1 - Tdap) 07/09/1975 ZOSTER VACCINE (1 of 2) 2006 AAA SCREENING 2021 DEPRESSION SCREENING 04/03/2023 MEDICARE AWV ? CALENDAR YEAR 2023 COVID-19 VACCINE (1 - 2023-2 5 season) 2023 INFLUENZA VACCINE (#1) 2023 Respiratory Syncytial Virus (RSV) Vaccine Pt: or over 60 yrs (1 - 1-dose 75+ series) 07/09/2031 HEPATITIS B VACCINE Aged Out No longe r eligible based on patient's age to complete this topic HIB VACCINE Aged Out No longer eligi ble based on patient's age to complete this topic HPV VACCINE Aged Out No longer eligi ble based on patient's age to complete this topic MENINGOCOCCAL VACCINE Aged Out No clint rodger eligible based on patient's age to complete this topic Advance Directives * Full Code (Latest Code Status on File) Date Activated Date Inactivated Comments 08/22/2015 8:47 PM 08/23/2015 2:44 PM
--- OUTSIDE RECORDS SUMMARY | 2024-03-19 01:59 | XMS_ITS | Encounter Summary ---
Author Organization 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
== END 2024-03-15 19:17 | disposition home or self-care (01) ==
PROVIDERS: Physician Assistant; Emergency Provider Emergency Medicine; PCP Internal Medicine
DX: U07.1 COVID-19 (principal); J44.9 Chronic obstructive pulmonary disease, unspecified; I10 Essential (primary) hypertension; N40.0 Benign prostatic hyperplasia without lower urinary tract symptoms; E78.5 Hyperlipidemia, unspecified; E01.0 Iodine-deficiency related diffuse (endemic) goiter; Z87.891 Personal history of nicotine dependence; R94.31 Abnormal electrocardiogram [ECG] [EKG]
CPT/HCPCS: 36415; 71045; 80053; 83880; 84484; 85025; 87637; 93005; 94640; 99284

== ENCOUNTER 2024-08-14 08:43 | Outpatient (CLI) | payer MEDICARE, SELFPAY ==
--- NOTE | ~2024-08-14 | XR_ITS ---
Left Hand Technique: PA, oblique, and lateral views were obtained. Clinical History: Pain Findings: No acute fracture or dislocation is seen. Osseous alignment is anatomic. There is minimal d egenerative change of the second and third MCP joints. Soft tissues are unremarkable. Impression: Minimal degenerative change of the second and third MCP joints. Reviewed, dictated and finalized at location . Impression: Minimal degenerative change of the second and third MCP joints.
--- NOTE | ~2024-08-14 | XR_ITS ---
Right Hand Technique: PA, oblique, and lateral views were obtained. Clinical History: Pain Findings: No acute fracture or dislocation is seen. Osseous alignment is anatomic. There is mild to m oderate degenerative change of the second and third MCP joints. Soft tissues are unremarkable. Impression: Mild to moderate degenerative change of the second and third MCP joints. Reviewed, dictated and finalized at location . Impression: Mild to moderate degenerative change of the second and third MCP joints.
--- OUTSIDE RECORDS SUMMARY | 2024-08-14 08:54 | XMS_ITS | Clinical Summary ---
Author Organization [facility] Address [address] [place] [address] Care Team Providers Care Rod Drawer Name Role Phone Unavailable Primary Care Provider Unavailabl e Source Comments [facility],non-owned Affiliates and Associated Physician Practices is amultiple site organization consisting of ambulatory clinics and hospital sitesin [place], [place], [place] and [place]. This disclosure is being madepursuant to the Care Everywhere program and may not contain all information available regarding this patient. Last updated 17.[facility] Allergies No known active allergies Medications * Be aware that medications may not be up to date on this document. Alwaysverify current medications with the patient. 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 Gender Identity Not on file Sexual Orientation Not on file Last Filed Vital Signs Vital Sign Reading Time Taken Comments Blood Pressure 149/94 08/23/2015 8:08 AM CDT Pulse 54 08/23/2015 8:08 AM CDT Temperature 36.6 C (97.9 F) 08/23/2015 8:08 AM CDT Respiratory Rate 18 08/23/2015 8:08 AM CDT [...] COLON CA SCREENING 1956 LIPID TESTING 1956 HEPATITIS C SCREENING 07/04/1974 DTAP/TDAP/TD VACCINES (1 - Tdap) 07/09/1975 PNEUMOCOCCAL VACCINE 50+ (1 of 2 - PCV) 07/09/1975 ZOSTER VACCINE (1 of 2) 2006 AAA SCREENING 2021 COVID-19 VACCINE (1 - 2023-2 5 season) 2023 DEPRESSION SCREENING 04/03/2024 INFLUENZA VACCINE (Season Ended) 2024 Respiratory Syncytial Virus (RSV) Vaccine Pt: or [...] patient's age to complete this topic MENINGOCOCCAL (Group B) VACC INE SHARED DECISION-MAKING Aged Out No longer eligibl e based on patient's age to complete this topic MENINGOCOCCAL GROUPS A/C/Y/W VACCINE Aged Out No longer eligible b ased on patient's age to complete this topic Insurance [employer] U[employer] MANAGED MEDICARE ADV Advance Directives * Full Code (Latest Code Status on File) Date Activated Date Inactivated Comments 08/22/2015 8:47 PM 08/23/2015 2:44 PM
--- OUTSIDE RECORDS SUMMARY | 2024-08-14 08:54 | XMS_ITS | Clinical Summary ---
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 Gender Identity Not on file Sexual Orientation Not on file Obstetrics History Last Filed Vital Signs Vital Sign Reading Time Taken Comments Blood Pressure 177/105 10/12/2023 2:30 PM CDT Pulse 58 10/12/2023 2:30 PM CDT Temperature 36.5 C (97.7 F) 10/12/2023 12:11 PM CDT Respiratory Rate 18 10/12/2023 2:30 [...] Cancer Screening-PSA 1956 Hepatitis B Screening 1974 Pneumococcal vaccine 65+ (1 of 1 - PCV) 2006 Zoster Vaccine (1 of 2) 2006 Abdominal Aortic Aneurysm (AAA) Screen 2021 Well Visit 65+ 2021 DTaP/Tdap/Td Vaccine (2 - Td or Tdap) 10/01/2023 Covid-19 Vaccine (3 - season) 2023, 05/30/2020 Influenza Vaccine (Season Ended) [address] [facility] CHOICE [facility] [facility] MEDICARE ADVANTAGE Care Teams Security Systems Integrator Relationship Specialty Start Date End Date Papi Cannon MD [id number] [facility] [address] [place], [place] [id number] PCP - General 03/24/17
== END 2024-08-14 08:44 | disposition home or self-care (01) ==
PROVIDERS: PCP Internal Medicine; Visit Provider Plastic Surgery
DX: M19.041 Primary osteoarthritis, right hand (principal); M19.042 Primary osteoarthritis, left hand
CPT/HCPCS: 73130